=== PATIENT | male | born 1955 | race Caucasian/White ===

== ENCOUNTER 2018-05-15 14:09 | Observation (INO) | payer OTHER ==
--- NOTE | 2018-05-15 15:13 | PDOC ---
History of Present Illness - General Stated Complaint: LEG PAIN Time Seen by Provider: 05/15/18 14:42 History Source: Patient Exam Limitations: No Limitations - History of Present Illness Initial Comments: 05/15/18 15:09 63 yr male history of HTN, right hip bursitus, right knee arthritis, presents with pain to the hip states worse after cortisone injection one week ago . Pt denies fever or chills no back or abd pain no urine or bowel dysfunction. Pt states pain is 10/10. Occurred: reports: last week Severity: Yes: severe Lower Extremity Pain Location: right: hip Extremity Pain Location - Extremity Pain Location Extremity Pain Locations: right: hip Past History - Past Medical History Allergies/Adverse Reactions: Allergies Allergy/AdvReac Type Severity Reaction Status Date / Time No Known Allergies Allergy Verified 05/15/18 14:14 Home Medications: Ambulatory Orders Benicar 12.5 mg PO DAILY 05/15/18 COPD: No HTN: Yes Other medical history: brisitis in the Rt hip - Suicide/Smoking/Psychosocial Hx Smoking History: Current every day smoker Have you smoked in the past 12 months: Yes Number of Cigarettes Smoked Daily: 3 Information on smoking cessation initiated: Yes 'Breaking Loose' booklet given: 05/15/18 Hx Alcohol Use: Yes (social) Drug/Substance Use Hx: No Substance Use Type: None Review of Systems - Review of Systems Able to Perform ROS?: Yes Is the patient limited Bol[place]ian proficient: No Constitutional: No: Symptoms Reported HEENTM: No: Symptoms Reported Respiratory: No: Symptoms reported Cardiac (ROS): No: Symptoms Reported ABD/GI: No: Symptoms Reported : No: Symptoms Reported Musculoskeletal: Yes: Symptoms Reported *Physical Exam - Vital Signs Last Vital Signs Temp Pulse Resp BP Pulse Ox 98.2 F 88 17 113/55 100 05/15/18 14:11 05/15/18 14:11 05/15/18 14:11 05/15/18 14:11 05/15/18 14:11 - Physical Exam General Appearance: Yes: Nourished, Appropriately Dressed, Mild Distress HEENT: positive: EOMI, TERRIE Respiratory/Chest: positive: Lungs Clear, Normal Breath Sounds Cardiovascular: positive: Regular Rhythm, Regular Rate Gastrointestinal/Abdominal: positive: Normal Bowel Sounds, Soft. negative: Tender Rectal Exam: positive: deferred Lymphatic: negative: Adenopathy Musculoskeletal: positive: Normal Inspection. negative: Muscle Spasm, Vertebral Tenderness Extremity: positive: Normal Capillary Refill, Normal Inspection, Tender, Other ( right hip tenderness, unable to abduct or internally rotate due to pain , no redness or warmth no swelling ). negative: Normal Range of Motion, Swelling, Erythema, Inflammation Integumentary: positive: Normal Color, Dry, Warm Neurologic: positive: Alert, Normal Mood/Affect, Normal Response, Motor Strength 01/18 ED Treatment Course - LABORATORY CBC & Chemistry Diagram: 05/15/18 16:55 05/15/18 16:55 - RADIOLOGY Radiology Studies Ordered: Category Date Time Status LOWER EXTREMITY CT W/O CONTR [CT] Stat CT Scan 05/15/18 14:53 Ordered - Medications Given in the ED: ED Medications Discontinued Medications Generic Name Dose Route Start Last Admin Trade Name Freq PRN Reason Stop Dose Admin Oxycodone/Acetaminophen 1 combo 05/15/18 14:59 05/15/18 15:02 Percocet 5/325 - PO 05/15/18 15:00 1 combo ONCE ONE Administration Medical Decision Making - Medical Decision Making 05/15/18 15:12 cc: right hip pain 10/10 for one week worse the past 2 days no back pain no fever no chills diff ambulating will get CT hip r/o fracture , septic bursitis 05/15/18 16:40 percocet given with no relief pt tolerated CT awaiting labs 05/15/18 17:23 WBC 18.0 pt to be transfered to Main ER for further workup and evaluation signed out to 05/15/18 17:32
[2018-05-15 17:04] LABS: EOS % 1.1 % (0-4.5); HEMATOCRIT 45.7 % (35.4-49); HEMOGLOBIN 15.5 GM/dL (11.7-16.9); LYMPH % 9.1 % (8-40); MCH 32.5 pg (25.7-33.7); MEAN CELL VOLUME 95.6 fl (80-96); MEAN PLT VOLUME 7.4 fl (7.5-11.1); MONO % 8.3 % (3.8-10.2); NEUT % 80.5 % (42.8-82.8); PLATELET COUNT 316 K/MM3 (134-434); RBC 4.77 M/mm3 (4.00-5.60); RDW 13.8 % (11.9-15.9)
[2018-05-15] MEDS ORDERED: CLINDAMYCIN 600MG PREMIX IVPB 600 MG/50 ML BAG IVPB ONE ×2 (17:16→17:59)
[2018-05-15 17:36] LABS: ALBUMIN 4.7 g/dl (3.4-5.0); ALK PHOS 77 U/L (45-117); ANION GAP 10 MMOL/L (8-16); BILIRUBIN,TOTAL 0.7 mg/dL (0.2-1.0); BLOOD UREA NITROGEN 22 mg/dL (7-18); CALCIUM 10.6 mg/dL (8.5-10.1); CHLORIDE 99 mmol/L (98-107); CO2 28 mmol/L (21-32); CREATININE 1.1 mg/dL (0.7-1.3); GLUCOSE,RANDOM 92 mg/dL (74-106); POTASSIUM 4.3 mmol/L (3.5-5.1); SGOT/AST 21 U/L (15-37); SGPT/ALT 28 U/L (12-78); SODIUM 137 mmol/L (136-145); TOT PROT 8.3 g/dl (6.4-8.2)
[2018-05-15] MEDS ORDERED: ONDANSETRON *ODT* 4 MG TABLET SL ONE (17:38)
[2018-05-15] MEDS ORDERED: ONDANSETRON *ODT* 4 MG TABLET ONE (17:39)
--- NOTE | 2018-05-15 18:01 | PDOC ---
History of Present Illness - General Chief Complaint: Pain Stated Complaint: LEG PAIN Time Seen by Provider: 05/15/18 14:42 - History of Present Illness Initial Comments: 05/15/18 18:00 63 yo M with h/o chronic R hip bursitis, and HTN who p/w R hip pain. Patient reports worsening sharp R hip pain x 3 weeks following fall onto his R knee. Recently had undergone R hip and R knee steroid injection on (05/08/18) , with worsening of R hip pain the following Saturday (05/12/18). Patient states that he was unable to get out of bed, and unable to ambulate d/t pain. Pain shoots down anterior and posterior thigh to back of leg. Diagnosed with R hip bursitis x 1 year ago , and has received 3 R hip injections to date. Reports OTC Ibuprofen and naproxen with no relief in symptoms. Patient denies N/V, F,C, CP, SOB, urinary complaints, hematuria, abdominal pain , diarrhea, constipation, BPR, lightheadedness, weakness, sensory changes. PMHx: as noted above Surgical Hx: Abdominal hernia repair ROS: as noted SHx: Denies tobacco, EtoH, IVDA. Allergies: NKDA PMD: Not on staff Past History - Past Medical History Allergies/Adverse Reactions: Allergies Allergy/AdvReac Type Severity Reaction Status Date / Time No Known Allergies Allergy Verified 05/15/18 14:14 Home Medications: Ambulatory Orders Olmesartan Medoxomil [Benicar (Nf)] mg PO DAILY 05/15/18 COPD: No HTN: Yes Other medical history: brisitis in the Rt hip - Suicide/Smoking/Psychosocial Hx Smoking History: Current every day smoker Have you smoked in the past 12 months: Yes Number of Cigarettes Smoked Daily: 3 Information on smoking cessation initiated: Yes 'Breaking Loose' booklet given: 05/15/18 Hx Alcohol Use: Yes (social) Drug/Substance Use Hx: No Substance Use Type: None Review of Systems - Review of Systems Comments:: 05/15/18 18:00 GENERAL/CONSTITUTIONAL: No fever or chills. No weakness. HEAD, EYES, EARS, NOSE AND THROAT: No change in vision. No ear pain or discharge. No sore throat. CARDIOVASCULAR: No chest pain or shortness of breath RESPIRATORY: No cough, wheezing, or hemoptysis. GASTROINTESTINAL: No nausea, vomiting, diarrhea or constipation. GENITOURINARY: No dysuria, frequency, or change in urination. MUSCULOSKELETAL: + Right hip pain. No joint or muscle swelling. No neck pain. SKIN: No rash NEUROLOGIC: No headache, vertigo, loss of consciousness, or change in strength/ sensation. ENDOCRINE: No increased thirst. No abnormal weight change HEMATOLOGIC/LYMPHATIC: No anemia, easy bleeding, or history of blood clots. ALLERGIC/IMMUNOLOGIC: No hives or skin allergy. *Physical Exam - Vital Signs Last Vital Signs Temp Pulse Resp BP Pulse Ox 98.2 F 88 17 113/55 100 05/15/18 14:11 05/15/18 14:11 05/15/18 14:11 05/15/18 14:11 05/15/18 14:11 - Physical Exam Comments: 05/15/18 18:00 GENERAL: Awake, alert, and fully oriented, in no acute distress HEAD: No signs of trauma, normocephalic, atraumatic EYES: PERRLA, EOMI, sclera anicteric, conjunctiva clear ENT: Hearing grossly normal, nares patent, oropharynx clear without exudates. Moist mucosa NECK: Normal ROM, supple, no lymphadenopathy, JVD, or masses LUNGS: No distress, speaks full sentences, clear to auscultation bilaterally HEART: Regular rate and rhythm, normal S1 and S2, no murmurs, rubs or gallops, peripheral pulses normal and equal bilaterally. EXTREMITIES : Normal inspection, Normal range of motion, no edema. No clubbing or cyanosis. R Knee: Neg effusion. clear to inspection. Neg ant drawer, post drawer sign. Nml join laxity. Neg varus/valgus deformity. palpable and symmetric peripheral PT, and DP pulses. R Hip: R SI joint ttp, R piriformis ttp, Pain with active ROM. Radial and pedal pulses intact SKIN: Warm, Dry, normal turgor, no rashes or lesions noted ED Treatment Course - LABORATORY CBC & Chemistry Diagram: 05/15/18 16:55 05/15/18 16:55 - ADDITIONAL ORDERS Additional order review: Laboratory Results 05/15/18 16:55 Sodium 137 Potassium 4.3 Chloride 99 Carbon Dioxide 28 Anion Gap 10 BUN 22 H Creatinine 1.1 Creat Clearance w eGFR > 60 Random Glucose 92 Calcium 10.6 H Total Bilirubin 0.7 AST 21 ALT 28 Alkaline Phosphatase 77 C-Reactive Protein < 0.3 Total Protein 8.3 H Albumin 4.7 05/15/18 16:55 RBC 4.77 MCV 95.6 MCHC 34.0 RDW 13.8 MPV 7.4 L Neutrophils % 80.5 Lymphocytes % 9.1 Monocytes % 8.3 Eosinophils % 1.1 Basophils % 1.0 - Medications Given in the ED: ED Medications Discontinued Medications Generic Name Dose Route Start Last Admin Trade Name Meron PRN Reason Stop Dose Admin Ondansetron HCl 4 mg 05/15/18 17:38 05/15/18 17:54 Zofran Odt - SL 05/15/18 17:39 4 mg ONCE ONE Administration Oxycodone/Acetaminophen 1 combo 05/15/18 14:59 05/15/18 15:02 Percocet 5/325 - PO 05/15/18 15:00 1 combo ONCE ONE Administration Medical Decision Making - Medical Decision Making 05/15/18 18:33 63 yo M with h/o chronic R hip bursitis, and HTN who p/w R hip pain. VSS, AF.Patient upgraded from [facility] for concern of R hip septic joint. R SI joint ttp, and painful with active ROM. Radial and pedal pulses intact. No overlying skin changes. WBC 18.0 in fast track. R/o septic joint/osteomyeleits. Ed Course: Received Clindamycin, CT R HIP, Zofran, and Oxycodone in fast track 05/15/18 18:33 WBC: 18.0 CRP <0.3 CT AP: No acute pathology. cannot r/o early septic arthritis or osteomyelitis.+ Chronic degenerative changes. 05/15/18 18:[address] Duncan Franco, will obtain MRI R Hip and he will see in morning. Consult order was placed. 05/15/18 19:[address] Kwaku Melendez.Will admit to med/surg obs . 05/15/18 19:48 EKG Sinus bradycardia (58) with normal interval duration and axis. No ANTWAN, STD, or TWI. *DC/Admit/Observation/Transfer Diagnosis at time of Disposition: Right hip pain Elevated WBC count Qualifiers: Leukocytosis type: unspecified Qualified Code(s): D72.829 - Elevated white blood cell count, unspecified - Discharge Dispostion Condition at time of disposition: Stable Decision to Admit order: Yes - Referrals - Patient Instructions - Post Discharge Activity
--- NOTE | 2018-05-15 18:18 | PDOC ---
*Physical Exam - Vital Signs Last Vital Signs Temp Pulse Resp BP Pulse Ox 98.2 F 88 17 113/55 100 05/15/18 14:11 05/15/18 14:11 05/15/18 14:11 05/15/18 14:11 05/15/18 14:11 - Physical Exam Comments: 05/15/18 18:30 gen: [id number], uncomfortable back: no midline back ttp, ttp over R piriformis, pt able to flex and extend at the hip with mild decreased ROM at ends of flexion and extension, no laxity of the joint, no knee swelling, no erythema, no redness, no warmth, no effusion palpated, normal rom of the knee, negative medial/lateral laxity, no effusion, full internal and external rotation of the hip, R SI joint ttp, R piriformis ttp , radiation from palpation R piriformis down R leg reproducing the pain radial and pedal pulses intact Heart Score/ECG Review - ECG Intrepretation Comment:: 05/15/18 19:47 sinus sierra at 58, nl axis, nl interval, no acute st/t wave findings ED Treatment Course - LABORATORY CBC & Chemistry Diagram: 05/15/18 16:55 05/15/18 16:55 - ADDITIONAL ORDERS Additional order review: Laboratory Results 05/15/18 16:55 Sodium 137 Potassium 4.3 Chloride 99 Carbon Dioxide 28 Anion Gap 10 BUN 22 H Creatinine 1.1 Creat Clearance w eGFR > 60 Random Glucose 92 Calcium 10.6 H Total Bilirubin 0.7 AST 21 ALT 28 Alkaline Phosphatase 77 C-Reactive Protein < 0.3 Total Protein 8.3 H Albumin 4.7 05/15/18 16:55 RBC 4.77 MCV 95.6 MCHC 34.0 RDW 13.8 MPV 7.4 L Neutrophils % 80.5 Lymphocytes % 9.1 Monocytes % 8.3 Eosinophils % 1.1 Basophils % 1.0 - Medications Given in the ED: ED Medications Discontinued Medications Generic Name Dose Route Start Last Admin Trade Name Freq PRN Reason Stop Dose Admin Clindamycin Phosphate 600 mg in 50 mls @ 100 mls/hr 05/15/18 17:16 05/15/18 18:02 Cleocin 600 Mg Premix Ivpb - IVPB 05/15/18 17:45 100 mls/hr ONCE ONE Administration Protocol Ondansetron HCl 4 mg 05/15/18 17:38 05/15/18 17:54 Zofran Odt - SL 05/15/18 17:39 4 mg ONCE ONE Administration Oxycodone/Acetaminophen 1 combo 05/15/18 14:59 05/15/18 15:02 Percocet 5/325 - PO 05/15/18 15:00 1 combo ONCE ONE Administration Medical Decision Making - Medical Decision Making 05/15/18 18:34 63yo male with hx of hip bursitis - s/p cortisone injection to the R hip and R knee -pt upgraded from [facility] for concern for septic joint no effusion seen on ct elevated wbc - however had cortisone injections to R hip and R knee - poss steroid related -concern for poss sciatica causing pain will discuss with orthopedics and place in obs for ortho eval and pt eval and pain control will give a muscle relaxer 05/15/18 18:45 crp negative wbc elevated resident discussed the case Dr. Franco who will see the patient requests MRI Hip microblog sent to [facility] for obs 05/15/18 19:48 resident discussed the case with [facility] who accepts pt to service *DC/Admit/Observation/Transfer Diagnosis at time of Disposition: Right hip pain Elevated WBC count Qualifiers: Leukocytosis type: unspecified Qualified Code(s): D72.829 - Elevated white blood cell count, unspecified - Discharge Dispostion Condition at time of disposition: Fair Decision to Admit order: Yes - Referrals - Patient Instructions - Post Discharge Activity - Attestations Physician Attestion: 05/15/18 18:46 I, Dr. Pamella Alejandre, DO, attest that this document has been prepared under my direction and personally reviewed by me in its entirety. I further attest, that it accurately reflects all work, treatment, procedures and medical decision -making performed by me.
[2018-05-15] MEDS ORDERED: METHOCARBAMOL 500 MG TABLET PO ONE (18:28)
[2018-05-15] MEDS ORDERED: METHOCARBAMOL 500 MG TABLET ONE (18:44)
[2018-05-15 19:01] LABS: ERYTHROCYTE SEDIMENTATION RATE 4 mm/hr (0-20)
--- NOTE | 2018-05-15 20:02 | PN ---
Teaching Attending Note Name of Resident: Sirisha Rodgers ATTENDING PHYSICIAN STATEMENT I saw and evaluated the patient. I reviewed the resident's note and discussed the case with the resident. I agree with the resident's findings and plan as documented. SUBJECTIVE: Patient is a 63 neema old man with history of chronic right Hip bursitis, and HTN who presents with right hip pain. Patient reports worsening sharp right hip pain for 3 weeks following fall onto his right knee. Recently had undergone R hip and R knee steroid injection on (05/08/18), with worsening of R hip pain the following Saturday (05/12/18). Patient states that he was unable to get out of bed, and unable to ambulate due to pain. Pain shoots down anterior and posterior thigh to back of leg. Diagnosed with R hip bursitis 1 year ago, and has received 3 right hip injections to date. Reports OTC Ibuprofen and naproxen with no relief in symptoms. OBJECTIVE: Alert Vital Signs Period Temp Pulse Resp BP Sys/[place] Pulse Ox Last 24 Hr 98.2 F 88 17 113/55 100 HEENT: No Jaundice, eye redness or discharge, PERRLA, EOMI. Normocephalic, atraumatic. External ears are normal and hearing is grossly intact. No nasal discharge. Neck: Supple, nontender. No palpable adenopathy or thyromegaly. No JVD Chest: Good effort. Clear to auscultation and percussion. Heart: Regular. No S3, rub or murmur Abdomen: Not distended, soft, nontender and no HSM. No rebound or guarding. Normoactive bowel sounds. Ext: Peripheral pulses intact. No leg edema. Tender right hip with limited ROM. Skin: Warm and dry. No petechiae, rash or ecchymosis. Neuro: Alert. Oriented x3. CN 2-12 grossly intact. Sensation grossly intact in all four extremities and DTR are symmetric. Home Medications Medication Instructions Recorded Olmesartan Medoxomil [Benicar (Nf)] mg PO DAILY 05/15/18 Abnormal Lab Results 05/15/18 05/15/18 16:55 16:55 WBC 18.0 H MPV 7.4 L Absolute Neuts (auto) 14.5 H BUN 22 H Calcium 10.6 H Total Protein 8.3 H ASSESSMENT AND PLAN: 1. Left Hip Pain - Patient is afebrile and he got intra-articular steroids on which may explain leukocytosis. Pain more consistent with flare-up of his bursitis than septic arthritis. CT scan of the hip did not show any significant pathology and MRI is pending. Ortho consulted. Will treat with Percocet and warm compress and await ortho evaluation for possible arthrocentesis. Will treat with IV NS and liberal oral fluids for mild hypercalcemia and get PTH level. 2. DVT prophylaxis - Lovenox 40 mg SQ q 24 hours. 3. Advance directives - Full code
--- NOTE | 2018-05-15 20:38 | HP ---
CHIEF COMPLAINT:right hip pain PCP: HISTORY OF PRESENT ILLNESS: 63 y/o male with PMH of chronic R hip bursitis, HTN, R knee arthritis presents to the ED with worsening right hip pain. Patient states he fell about three weeks ago and has not felt right. He received a cortisone injection on 05/08 and has not really felt any relief. He can barely ambulate or put pressure on his right leg. He states the pain is around 10/10 and he has not gotten any relief from OTC pain meds such as naproxen. 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 ER course was notable for: (1)WBC 18 (2)Lower extremity CT shows no acute pathology- patient going for MRI (3) Recent Travel:none PAST MEDICAL HISTORY: see HPI PAST SURGICAL HISTORY: abdominal hernia repair during childhood Social History: Smoking: smoked 1 pack per weekend for many years Alcohol:social drinking 1-2 drinks per weekend Drugs: denies Family History: father and brother have prostate ca Allergies No Known Allergies Allergy (Verified 05/15/18 14:14) HOME MEDICATIONS: Home Medications Medication Instructions Recorded Olmesartan Medoxomil [Benicar (Nf)] mg PO DAILY 05/15/18 REVIEW OF SYSTEMS CONSTITUTIONAL: Absent: fever, chills, diaphoresis, generalized weakness, malaise, loss of appetite, weight change HEENT: Absent: rhinorrhea, nasal congestion, throat pain, throat swelling, difficulty swallowing, mouth swelling, ear pain, eye pain, visual changes CARDIOVASCULAR: Absent: chest pain, syncope, palpitations, irregular heart rate, lightheadedness , peripheral edema RESPIRATORY: Absent: cough, shortness of breath, dyspnea with exertion, orthopnea, wheezing, stridor, hemoptysis GASTROINTESTINAL: Absent: abdominal pain, abdominal distension, nausea, vomiting, diarrhea, constipation, melena, hematochezia GENITOURINARY: Absent: dysuria, frequency, urgency, hesitancy, hematuria, flank pain, genital pain MUSCULOSKELETAL: Present joint swelling, myalgia : Absent: arthralgia, back pain, neck pain SKIN: Absent: rash, itching, pallor HEMATOLOGIC/IMMUNOLOGIC: Absent: easy bleeding, easy bruising, lymphadenopathy, frequent infections ENDOCRINE: Absent: unexplained weight gain, unexplained weight loss, heat intolerance, cold intolerance NEUROLOGIC: Absent: headache, focal weakness or paresthesias, dizziness, unsteady gait, seizure, mental status changes, bladder or bowel incontinence PSYCHIATRIC: Absent: anxiety, depression, suicidal or homicidal ideation, hallucinations. PHYSICAL EXAMINATION Vital Signs - 24 hr 05/15/18 14:11 Temperature 98.2 F Pulse Rate 88 Respiratory 17 Rate Blood Pressure 113/55 O2 Sat by Pulse 100 Oximetry (%) GENERAL: Awake, alert, and fully oriented, in acute distress. NECK: no JVD appreciated LUNGS: CTA B/L, no rales, rhonchi, wheezing. HEART: Regular rate and rhythm, normal S1 and S2 without murmur, rub or gallop. ABDOMEN: Soft, nontender, not distended, normoactive bowel sounds, no guarding, no rebound, no masses. No hepatomegaly or splenomegaly. MUSCULOSKELETAL:+ttp on right hip/piriformis with pain radiating down right leg and to right groin; pain with adduction, joint is not warm or erythematous. EXTREMITIES: warm; well perfused, no clubbing/cyanosis or LE edema NEUROLOGICAL: Cranial nerves II-XII intact. Normal speech. Normal gait. PSYCHIATRIC: Cooperative. Good eye contact. Appropriate mood and affect. SKIN: Warm, dry, normal turgor, no rashes or lesions noted, normal capillary refill. Laboratory Results - last 24 hr 05/15/18 05/15/18 16:55 16:55 WBC 18.0 H RBC 4.77 Hgb 15.5 Hct 45.7 MCV 95.6 MCH 32.5 MCHC 34.0 RDW 13.8 Plt Count 316 MPV 7.4 L Absolute Neuts (auto) 14.5 H Neutrophils % 80.5 Lymphocytes % 9.1 Monocytes % 8.3 Eosinophils % 1.1 Basophils % 1.0 Nucleated RBC % 0 ESR 4 Sodium 137 Potassium 4.3 Chloride 99 Carbon Dioxide 28 Anion Gap 10 BUN 22 H Creatinine 1.1 Creat Clearance w eGFR > 60 Random Glucose 92 Calcium 10.6 H Total Bilirubin 0.7 AST 21 ALT 28 Alkaline Phosphatase 77 C-Reactive Protein < 0.3 Total Protein 8.3 H Albumin 4.7 ASSESSMENT/PLAN: 63 y/o male with PMH of chronic R hip bursitis, HTN, R knee arthritis presents to the ED with worsening right hip pain. #1:Hip Pain: patients hip pain seems more of a flre up rather than a septic joint given patient is afebrile and the joint itself does not appear erythematous or warm to touch -CT showed no acute pathology -MRI pending -ortho consulted will see patient in AM -treat with percocet for pain and supportive care #2: HTN -continue with Benicar 20 daily #3: Hypercalcemia: -IVF DVT Prophylaxis: lovenox 40 sq daily - Problem List - Problem (1) Elevated WBC count Code(s): D72.829 - ELEVATED WHITE BLOOD CELL COUNT, UNSPECIFIED Qualifiers: Leukocytosis type: unspecified Qualified Code(s): D72.829 - Elevated white blood cell count, unspecified (2) Right hip pain Code(s): M25.551 - PAIN IN RIGHT HIP Visit type - Emergency Visit Emergency Visit: Yes Care time: The patient presented to the Emergency Department on the above date and was hospitalized for further evaluation of their emergent condition. - New Patient This patient is new to me today: Yes Date on this admission: 05/15/18 - Critical Care Critical Care patient: No Hospitalist Screening - Colonoscopy Questionnaire Colonoscopy Questionnaire: Colonoscopy Questionnaire - Patient: 50 - 75 years old and never had a screening colonoscopy: Unknown History of colon or rectal polyps, or CA: Unknown History of IBD, Crohn's disease or UC: Unknown History of abdominal radiation therapy as a child: Unknown - Relative: 1 with colon or rectal CA, or polyps at age 60 or younger: Unknown Colon or rectal CA diagnosed at age 45 or younger: Unknown Multiple relatives with colon or rectal CA: Unknown - Outcome: Screening Result: Negative Screen
[2018-05-15] MEDS ORDERED: morphine CARPU-JECT 4 MG/1 ML DISP.SYRIN IVPUSH ONE (20:53)
[2018-05-15] MEDS ORDERED: SODIUM CHLORIDE 1,000 ML IV SCH (21:15)
[2018-05-15] MEDS ORDERED: ACETAMINOPHEN 325 MG TABLET (FP) PO PRN (21:21)
[2018-05-15] MEDS ORDERED: ENOXAPARIN NA (PORCINE) 40 MG/0.4 ML DISP.SYRIN SQ ONE (21:35)
[2018-05-15] MEDS ORDERED: morphine SULFATE 4 MG/ML VIAL ONE (21:35)
[2018-05-15] MEDS: SODIUM CHLORIDE 1,000 ML IV SCH (21:44)
[2018-05-15] MEDS: ENOXAPARIN NA (PORCINE) 40 MG/0.4 ML DISP.SYRIN SQ SCH (21:44)
[2018-05-15] MEDS ORDERED: ONDANSETRON 4 MG/2 ML VIAL IVPB ONE (21:54)
[2018-05-15] MEDS ORDERED: HEPARIN NA (PORCINE) 5,000 UNITS/ML 1ML VIAL SQ SCH (22:00)
--- NOTE | 2018-05-15 23:14 | CONSULT ---
Consult - text type - Consultation Consultation Note: Asked to eval this 63M admitted for sever right hip pain for 3 days. He had steroid injection done 05/08 and now worse. Evaluation in ER showed WBC of 18. Patient states he fell 3 weeks ago. Currently he states that if he presses on the right hip, the pain shoots down to the back of the knee. PMH: chronic R hip bursitis, HTN, R knee arthritis Meds: reviewed in chart All:nkda FH: n/c ROS: no recent fevers/chills/weight loss PE: Afebrile, in no distress, comfortable in bed right hip no redness/swelling/warmth passive rom full and painfree motor strength intact b/l le straight leg raising exam negative bilaterally ankle strength intact no peripheral edema distal pulses 2+ CT: no acute pathology or obvious effusion or abscess in non contrast study; no fractur Labs: WBC 18 ESR 4 CRP < 0.3 Imp: Right hip pain, elevated WBC but ESR/CRP WNL -septic hip unlikely given clinical exam and normal esr/crp -possible right radiculopathy but neuro exam benign -right hip mri since no clear source of white count at this time -repeat cbc in am -will follow after mri
[2018-05-16] MEDS: oxyCODONE HCL 5 MG TABLET PO PRN ×2 (02:35→07:15)
[2018-05-16 02:58] VITALS: BMI 24.3
[2018-05-16] MEDS ORDERED: RANITIDINE HCL 150 MG TABLET (FP) PO ONE (05:15)
[2018-05-16] MEDS ORDERED: ACETAMINOPHEN 325 MG TABLET (FP) PO PRN (07:51)
[2018-05-16 08:34] LABS: BASO % 0.3 % (0-2.0); EOS % 1.5 % (0-4.5); HEMATOCRIT 44.1 % (35.4-49); HEMOGLOBIN 14.9 GM/dL (11.7-16.9); LYMPH % 14.2 % (8-40); MCH 32.3 pg (25.7-33.7); MCHC 33.8 g/dl (32.0-35.9); MEAN CELL VOLUME 95.6 fl (80-96); MEAN PLT VOLUME 7.4 fl (7.5-11.1); MONO % 9.8 % (3.8-10.2); NEUT % 74.2 % (42.8-82.8); PLATELET COUNT 259 K/MM3 (134-434); RBC 4.61 M/mm3 (4.00-5.60); RDW 13.4 % (11.9-15.9); WHITE BLOOD COUNT 14.9 K/mm3 (4.0-10.0)
[2018-05-16 08:58] LABS: ALBUMIN 3.9 g/dl (3.4-5.0); ANION GAP 9 MMOL/L (8-16); BLOOD UREA NITROGEN 22 mg/dL (7-18); CALCIUM 9.4 mg/dL (8.5-10.1); CHLORIDE 102 mmol/L (98-107); CO2 26 mmol/L (21-32); GLUCOSE,RANDOM 98 mg/dL (74-106); MAGNESIUM 1.9 mg/dL (1.8-2.4); POTASSIUM 4.5 mmol/L (3.5-5.1); SGOT/AST 22 U/L (15-37); SODIUM 137 mmol/L (136-145)
[2018-05-16 09:10] LABS: ALK PHOS 66 U/L (45-117); BILIRUBIN,TOTAL 0.6 mg/dL (0.2-1.0); CREATININE 1.2 mg/dL (0.7-1.3); PHOSPHOROUS 3.6 mg/dL (2.5-4.9); SGPT/ALT 26 U/L (12-78); TOT PROT 7.4 g/dl (6.4-8.2)
[2018-05-16] MEDS: ENOXAPARIN NA (PORCINE) 40 MG/0.4 ML DISP.SYRIN SQ SCH (10:29)
--- NOTE | 2018-05-16 10:32 | EKG ---
Test Reason : Blood Pressure : / mmHG Vent. Rate : 058 BPM Atrial Rate : 058 BPM P-R Int : 150 ms QRS Dur : 086 ms QT Int : 414 ms P-R-T Axes : 035 003 035 degrees QTc Int : 406 ms SINUS BRADYCARDIA OTHERWISE NORMAL ECG NO PREVIOUS ECGS AVAILABLE Confirmed by DIMITRY LANG, CAROLA ([id number]) on 05/16/2018 10:32:07 AM Referred By: Confirmed By:CAROLA MORAES MD
[2018-05-16] MEDS: KETOROLAC TROMETHAMINE 15 MG/ML VIAL IVPUSH PRN ×2 (12:15→18:31)
[2018-05-16] MEDS: LIDOCAINE 5% TOPICAL PATCH TP SCH (12:15)
[2018-05-16] MEDS: GABAPENTIN 100 MG CAPSULE (FP) PO SCH ×2 (14:52→21:10)
--- NOTE | 2018-05-16 16:33 | PN ---
Physical Exam: SUBJECTIVE: Patient seen and examined this AM. He is complaing of hip and leg pain 10/10 with some relief from pain meds. He states that sitting up improves his pain and movement worsens it. OBJECTIVE: Vital Signs Period Temp Pulse Resp BP Sys/Hampton Pulse Ox Last 24 Hr 98 F-98.5 F 51-80 18-21 106-130/60-74 98-100 GENERAL: A&O, no acute distress HEAD: Normocephalic, atraumatic. EYES: PERRL, no scleral icterus EARS, NOSE, THROAT: oropharynx clear without exudates. Moist mucous membranes. NECK: supple without lymphadenopathy LUNGS: CTA b/l, no crackles or wheezes HEART: Regular rate and rhythm, normal S1 and S2 without murmur ABDOMEN: Soft, nontender to palpation, normoactive bowel sounds MUSCULOSKELETAL: No bony deformities. Superficial tenderness to palpation on right gluteal region with radiation down the right thigh EXTREMITIES: 2+ pulses, warm, well-perfused. No peripheral edema. NEUROLOGICAL: Cranial nerves II-XII grossly intact. Normal speech. PSYCHIATRIC: Cooperative. Good eye contact. Appropriate mood and affect. SKIN: Warm, dry, no rashes or lesions noted Laboratory Results - last 24 hr 05/15/18 05/15/18 05/16/18 16:55 16:55 08:00 WBC 18.0 H 14.9 H RBC 4.77 4.61 Hgb 15.5 14.9 Hct 45.7 44.1 MCV 95.6 95.6 MCH 32.5 32.3 MCHC 34.0 33.8 RDW 13.8 13.4 Plt Count 316 259 MPV 7.4 L 7.4 L Absolute Neuts (auto) 14.5 H 11.0 H Neutrophils % 80.5 74.2 Lymphocytes % 9.1 14.2 D Monocytes % 8.3 9.8 Eosinophils % 1.1 1.5 Basophils % 1.0 0.3 Nucleated RBC % 0 0 ESR 4 Sodium 137 Potassium 4.3 Chloride 99 Carbon Dioxide 28 Anion Gap 10 BUN 22 H Creatinine 1.1 Creat Clearance w eGFR > 60 Random Glucose 92 Calcium 10.6 H Phosphorus Magnesium Total Bilirubin 0.7 AST 21 ALT 28 Alkaline Phosphatase 77 C-Reactive Protein < 0.3 Total Protein 8.3 H Albumin 4.7 05/16/18 08:00 WBC RBC Hgb Hct MCV MCH MCHC RDW Plt Count MPV Absolute Neuts (auto) Neutrophils % Lymphocytes % Monocytes % Eosinophils % Basophils % Nucleated RBC % ESR Sodium 137 Potassium 4.5 Chloride 102 Carbon Dioxide 26 Anion Gap 9 BUN 22 H Creatinine 1.2 Creat Clearance w eGFR > 60 Random Glucose 98 Calcium 9.4 Phosphorus 3.6 Magnesium 1.9 Total Bilirubin 0.6 AST 22 ALT 26 Alkaline Phosphatase 66 D C-Reactive Protein Total Protein 7.4 Albumin 3.9 Active Medications Generic Name Dose Route Start Last Admin Trade Name Freq PRN Reason Stop Dose Admin Acetaminophen 650 mg 05/16/18 07:51 Tylenol - PO Q6H PRN PAIN LEVEL 1-5 Enoxaparin Sodium 40 mg 05/15/18 20:45 05/16/18 10:29 Lovenox - SQ 40 mg DAILY ALCIRA Administration Gabapentin 100 mg 05/16/18 14:00 05/16/18 14:52 Neurontin - PO 100 mg TID ALCIRA Administration Sodium Chloride 1,000 mls @ 50 mls/hr 05/15/18 21:18 05/15/18 21:44 Normal Saline - IV 50 mls/hr ASDIR ALCIRA Administration Ketorolac Tromethamine 15 mg 05/16/18 07:50 05/16/18 12:15 Toradol Injection - IVPUSH 05/21/18 07:49 15 mg Q6H PRN Administration PAIN LEVEL 6-10 Lidocaine 1 patch 05/16/18 12:00 05/16/18 12:15 Lidoderm Patch - TP 1 patch DAILY ALCIRA Administration Miscellaneous 1 each 05/16/18 22:00 Lidoderm Patch Removal DAILY@2200 [facility] ASSESSMENT/PLAN: 63 yo male with PMH HTN, Right hip bursitis, right knee arthritis admitted with med/surg with right hip pain s/p steroid injection of right hip and knee. Right hip pain, r/o septic joint -Pt with right hip pain that is clinically more musculoskeletal pain -Pt is afebrile -WBC 18 on admission, trending down (14.9 this morning) -CT of joint noted with no abnormalities -Ortho consult appreciated -MRI pending -Physical Therapy evaluation -Lidoderm patch -Toradol 15 mg IV Q6 PRN -Neurontin 100 mg PO TID -Tylenol 650 mg PO Q6 PRN HTN -Pt says he is on Benicar 20 mg PO Daily at home -Will hold for now as his most recent blood pressure without medication yet is 113/62 DVT Prophylaxis -Lovenox 40 mg SQ Daily FEN -Fluids: NS @ 50 cc/hr -Electrolytes: No electrolyte abnormalities, BMP in AM -Nutrition: Low Sodium diet Disposition Continue to monitor on Med/Surg Visit type - Emergency Visit Emergency Visit: Yes ED Registration Date: 05/15/18 Care time: The patient presented to the Emergency Department on the above date and was hospitalized for further evaluation of their emergent condition. - New Patient This patient is new to me today: Yes Date on this admission: 05/16/18 - Critical Care Critical Care patient: No
--- NOTE | 2018-05-16 18:20 | PN ---
Teaching Attending Note Name of Resident: Jose A Nathan ATTENDING PHYSICIAN STATEMENT I saw and evaluated the patient. I reviewed the resident's note and discussed the case with the resident. I agree with the resident's findings and plan as documented with exceptions below. SUBJECTIVE: Patient seen and examined. pain in right gluteal region, radiating down right thigh, unchanged since admission. no new tingling/weakness/numbness, urinary or bowel symptoms. OBJECTIVE: Vital Signs Period Temp Pulse Resp BP Sys/Hampton Pulse Ox Last 24 Hr 98 F-98.5 F 51-80 18-21 106-130/60-74 98-100 Intake & Output 05/13/18 05/14/18 05/15/18 05/16/18 23:59 23:59 23:59 23:59 Intake Total 900 Output Total 300 Balance 600 Weight 160 lb 7 oz General: lying in bed in no acute distress Musculoskeletal: focal area of tenderness in outer lower right gluteal region with no specific eliciated tenderness, When attempted to check SLR on RLE, stated unable to move due to pain but then noted moving RLE freely in bed during the rest of the exam, no spinal tenderness noted Home Medications Medication Instructions Recorded Olmesartan Medoxomil [Benicar (Nf)] 20 mg PO DAILY 05/15/18 Naproxen 500 mg PO BID 05/16/18 Olmesartan/Hydrochlorothiazide 1 tablet PO DAILY 05/16/18 [Olmesartan-Hctz 20-12.5 mg Tab] Active Medications Acetaminophen (Tylenol -) 650 mg PO Q6H PRN PRN Reason: PAIN LEVEL 1-5 Enoxaparin Sodium (Lovenox -) 40 mg SQ DAILY [facility] Last Admin: 05/16/18 10:29 Dose: 40 mg Gabapentin (Neurontin -) 100 mg PO TID [facility] Last Admin: 05/16/18 14:52 Dose: 100 mg Sodium Chloride (Normal Saline -) 1,000 mls @ 50 mls/hr IV ASDIR [facility] Last Admin: 05/15/18 21:44 Dose: 50 mls/hr Ketorolac Tromethamine (Toradol Injection -) 15 mg IVPUSH Q6H PRN PRN Reason: PAIN LEVEL 6-10 Stop: 05/21/18 07:49 Last Admin: 05/16/18 12:15 Dose: 15 mg Lidocaine (Lidoderm Patch -) 1 patch TP DAILY [facility] Last Admin: 05/16/18 12:15 Dose: 1 patch Miscellaneous (Lidoderm Patch Removal) 1 each MC DAILY@2200 [facility] Laboratory Results - last 24 hr 05/15/18 05/16/18 05/16/18 16:55 08:00 08:00 WBC 14.9 H RBC 4.61 Hgb 14.9 Hct 44.1 MCV 95.6 MCH 32.3 MCHC 33.8 RDW 13.4 Plt Count 259 MPV 7.4 L Absolute Neuts (auto) 11.0 H Neutrophils % 74.2 Lymphocytes % 14.2 D Monocytes % 9.8 Eosinophils % 1.5 Basophils % 0.3 Nucleated RBC % 0 ESR 4 Sodium 137 Potassium 4.5 Chloride 102 Carbon Dioxide 26 Anion Gap 9 BUN 22 H Creatinine 1.2 Creat Clearance w eGFR > 60 Random Glucose 98 Calcium 9.4 Phosphorus 3.6 Magnesium 1.9 Total Bilirubin 0.6 AST 22 ALT 26 Alkaline Phosphatase 66 D Total Protein 7.[address] right hip noted ASSESSMENT AND PLAN: 63 yom with PMHx of right hip bursitis/Arthritis, HTN, prior hip steroid injections, last 1 week ago comes with worsening right hip pain -Acute on chronic right hip pain, suspect from chronic osteoarthritis,exam not concerning, unlikely septic arthritis based on presentation and current exam -HTN Plan: Orthopedic input noted MRI right hip if fails to improve. PT eval Add neurontin/lidocaine patch. Toradol prn. resume home BP meds based on BP readings DVTPPX heparin Dispo pending improvement in pain and symptoms. Plan discussed with patient in detail, all questions answered.
[2018-05-16] MEDS ORDERED: LIDOCAINE PATCH REMOVAL MC SCH (22:00)
[2018-05-16] MEDS: SODIUM CHLORIDE 1,000 ML IV SCH (22:36)
[2018-05-17] MEDS: KETOROLAC TROMETHAMINE 15 MG/ML VIAL IVPUSH PRN ×3 (00:10→13:24)
[2018-05-17] MEDS ORDERED: RANITIDINE HCL 150 MG TABLET (FP) PO ONE (05:06)
[2018-05-17] MEDS: GABAPENTIN 100 MG CAPSULE (FP) PO SCH ×2 (05:35→13:24)
--- NOTE | 2018-05-17 07:45 | PN ---
Physical Exam: SUBJECTIVE: Patient seen and examined this AM. States his pain is improving and that his movement is better, though endorses that he was just given pain medicine and when it wears off the pain is the same as admission. Pt still complaining of knee pain in addition to the hip pain. He says that it has been worked up previously and diagnosed as arthritis, though his pain has not improved since he fell on it in January of this year. Denies fevers, chills, abdominal pain, n/v/d. OBJECTIVE: Vital Signs Period Temp Pulse Resp BP Sys/Hampton Pulse Ox Last 24 Hr 98.0 F-98.8 F 51-65 20-21 106-132/62-79 99-100 GENERAL: A&O, no acute distress HEAD: Normocephalic, atraumatic. EYES: PERRL, no scleral icterus EARS, NOSE, THROAT: oropharynx clear without exudates. Moist mucous membranes. NECK: supple without lymphadenopathy LUNGS: CTA b/l, no crackles or wheezes HEART: Regular rate and rhythm, normal S1 and S2 without murmur ABDOMEN: Soft, nontender to palpation, normoactive bowel sounds MUSCULOSKELETAL: No bony deformities. Superficial tenderness to palpation on right gluteal region with radiation down the right thigh, improving from yesterday. mild tenderness to palpation of the right knee diffusely without any specific point tenderness. good ROM. EXTREMITIES: 2+ pulses, warm, well-perfused. No peripheral edema. NEUROLOGICAL: Cranial nerves II-XII grossly intact. Normal speech. PSYCHIATRIC: Cooperative. Good eye contact. Appropriate mood and affect. SKIN: Warm, dry, no rashes or lesions noted Laboratory Results - last 24 hr 05/16/18 05/16/18 08:00 08:00 WBC 14.9 H RBC 4.61 Hgb 14.9 Hct 44.1 MCV 95.6 MCH 32.3 MCHC 33.8 RDW 13.4 Plt Count 259 MPV 7.4 L Absolute Neuts (auto) 11.0 H Neutrophils % 74.2 Lymphocytes % 14.2 D Monocytes % 9.8 Eosinophils % 1.5 Basophils % 0.3 Nucleated RBC % 0 Sodium 137 Potassium 4.5 Chloride 102 Carbon Dioxide 26 Anion Gap 9 BUN 22 H Creatinine 1.2 Creat Clearance w eGFR > 60 Random Glucose 98 Calcium 9.4 Phosphorus 3.6 Magnesium 1.9 Total Bilirubin 0.6 AST 22 ALT 26 Alkaline Phosphatase 66 D Total Protein 7.4 Albumin 3.9 Active Medications Generic Name Dose Route Start Last Admin Trade Name Freq PRN Reason Stop Dose Admin Acetaminophen 650 mg 05/16/18 07:51 Tylenol - PO Q6H PRN PAIN LEVEL 1-5 Enoxaparin Sodium 40 mg 05/15/18 20:45 05/16/18 10:29 Lovenox - SQ 40 mg DAILY ALCIRA Administration Gabapentin 100 mg 05/16/18 14:00 05/17/18 05:35 Neurontin - PO 100 mg TID ALCIRA Administration Sodium Chloride 1,000 mls @ 50 mls/hr 05/15/18 21:18 05/16/18 22:36 Normal Saline - IV 50 mls/hr ASDIR ALCIRA Administration Ketorolac Tromethamine 15 mg 05/16/18 07:50 05/17/18 06:06 Toradol Injection - IVPUSH 05/21/18 07:49 15 mg Q6H PRN Administration PAIN LEVEL 6-10 Lidocaine 1 patch 05/16/18 12:00 05/16/18 12:15 Lidoderm Patch - TP 1 patch DAILY ALCIRA Administration Miscellaneous 1 each 05/16/18 22:00 05/16/18 22:36 Lidoderm Patch Removal MC Not Given DAILY@2200 [facility] ASSESSMENT/PLAN:
[2018-05-17 08:08] LABS: BASO % 0.8 % (0-2.0); EOS % 2.1 % (0-4.5); HEMATOCRIT 40.3 % (35.4-49); HEMOGLOBIN 13.7 GM/dL (11.7-16.9); MCH 32.4 pg (25.7-33.7); MCHC 34.1 g/dl (32.0-35.9); MEAN CELL VOLUME 95.1 fl (80-96); MEAN PLT VOLUME 7.7 fl (7.5-11.1); MONO % 8.4 % (3.8-10.2); NEUT % 72.7 % (42.8-82.8); PLATELET COUNT 237 K/MM3 (134-434); RBC 4.24 M/mm3 (4.00-5.60); RDW 13.6 % (11.9-15.9); WHITE BLOOD COUNT 11.7 K/mm3 (4.0-10.0)
--- NOTE | 2018-05-17 08:44 | PN ---
Teaching Attending Note Name of Resident: Jose A Nathan ATTENDING PHYSICIAN STATEMENT I saw and evaluated the patient. I reviewed the resident's note and discussed the case with the resident. I agree with the resident's findings and plan as documented with exceptions below. SUBJECTIVE: Patient seen and examined, sleeping comfortably, when woken up reports still with right buttock pain but improved, able to move leg better, wondering about the MRI. No new concerns. OBJECTIVE: Vital Signs Period Temp Pulse Resp BP Sys/Hampton Pulse Ox Last 24 Hr 98.0 F-98.8 F 51-65 20-21 106-132/62-79 99-100 Intake & Output 05/14/18 05/15/18 05/16/18 05/17/18 23:59 23:59 23:59 23:59 Intake Total 2050 550 Output Total 1100 Balance 950 550 Weight 160 lb 7 oz General: lying in bed in no acute distress Musculoskeletal: minimal to no tenderness in right gluteal region, moving RLE freely in bed, power 5/5, no edema Laboratory Results - last 24 hr 05/16/18 05/17/18 08:00 06:20 WBC 11.7 H RBC 4.24 Hgb 13.7 Hct 40.3 MCV 95.1 MCH 32.4 MCHC 34.1 RDW 13.6 Plt Count 237 MPV 7.7 Absolute Neuts (auto) 8.5 H Neutrophils % 72.7 Lymphocytes % 16.0 Monocytes % 8.4 Eosinophils % 2.1 Basophils % 0.8 Nucleated RBC % 0 Sodium 137 Potassium 4.5 Chloride 102 Carbon Dioxide 26 Anion Gap 9 BUN 22 H Creatinine 1.2 Creat Clearance w eGFR > 60 Random Glucose 98 Calcium 9.4 Phosphorus 3.6 Magnesium 1.9 Total Bilirubin 0.6 AST 22 ALT 26 Alkaline Phosphatase 66 D Total Protein 7.4 Albumin 3.9 ASSESSMENT AND PLAN: 63 yom with PMHx of right hip bursitis/Arthritis, HTN, prior hip steroid injections, last 1 week ago comes with worsening right hip pain -Acute on chronic right hip pain, suspect from chronic osteoarthritis,exam not concerning, unlikely septic arthritis based on presentation and current exam -HTN Plan: Orthopedic input noted Improved. pain control with tylenol/toradol/gabapentin/lidocaine patch. PT eval MRI right hip if fails to improve or unable to ambulate. Resume home BP meds based on BP readings DVTPPX heparin Dispo later today if seen by PT and no concerns. Plan discussed with patient in detail, all questions answered.
[2018-05-17] MEDS: ENOXAPARIN NA (PORCINE) 40 MG/0.4 ML DISP.SYRIN SQ SCH (09:41)
[2018-05-17] MEDS: LIDOCAINE 5% TOPICAL PATCH TP SCH (09:41)
--- NOTE | 2018-05-17 11:59 | DS ---
Physical Exam: SUBJECTIVE: Patient seen and examined this AM. States his pain is improving and that his movement is better, though endorses that he was just given pain medicine and when it wears off the pain is the same as admission. Pt still complaining of knee pain in addition to the hip pain. He says that it has been worked up previously and diagnosed as arthritis, though his pain has not improved since he fell on it in January of this year. Denies fevers, chills, abdominal pain, n/v/d. OBJECTIVE: Vital Signs Period Temp Pulse Resp BP Sys/Hampton Pulse Ox Last 24 Hr 97.7 F-98.8 F 56-65 19-21 113-136/62-84 98-99 PHYSICAL EXAM GENERAL: A&O, no acute distress HEAD: Normocephalic, atraumatic. EYES: PERRL, no scleral icterus EARS, NOSE, THROAT: oropharynx clear without exudates. Moist mucous membranes. NECK: supple without lymphadenopathy LUNGS: CTA b/l, no crackles or wheezes HEART: Regular rate and rhythm, normal S1 and S2 without murmur ABDOMEN: Soft, nontender to palpation, normoactive bowel sounds MUSCULOSKELETAL: No bony deformities. Superficial tenderness to palpation on right gluteal region with radiation down the right thigh, improving from yesterday. mild tenderness to palpation of the right knee diffusely without any specific point tenderness. good ROM. EXTREMITIES: 2+ pulses, warm, well-perfused. No peripheral edema. NEUROLOGICAL: Cranial nerves II-XII grossly intact. Normal speech. PSYCHIATRIC: Cooperative. Good eye contact. Appropriate mood and affect. SKIN: Warm, dry, no rashes or lesions noted LABS Laboratory Results - last 24 hr 05/17/18 06:20 WBC 11.7 H RBC 4.24 Hgb 13.7 Hct 40.3 MCV 95.1 MCH 32.4 MCHC 34.1 RDW 13.6 Plt Count 237 MPV 7.7 Absolute Neuts (auto) 8.5 H Neutrophils % 72.7 Lymphocytes % 16.0 Monocytes % 8.4 Eosinophils % 2.1 Basophils % 0.8 Nucleated RBC % 0 IMAGING: RLE CT scan: no acute pathology seen on right hip CXR: no acute pathology HOSPITAL COURSE: Date of Admission:05/15/18 Date of Discharge: 05/17/18 The patient was admitted to the hospital with right hip and knee pain. CT was performed as above to make sure there was not a septic joint. The pain in the hip is most likely musculoskeletal and the knee pain most likely arthritic pain as it has been diagnosed in the past. The patient was seen by an orthopedic surgeon who did not recommend any surgical intervention at this time. The pain was controlled with Neurontin, Lidoderm patches, Toradol, and Tylenol. The patient was evaluated by physical therapy who deemed him medically safe to go home. The patient was set up with Home VNS and PT. Discussed thoroughly with patient the need for continued work with physical therapy for improvement of symptoms. Minutes to complete discharge: 40 Discharge Summary Reason For Visit: PAIN OF RIGHT HIP Current Active Problems Elevated WBC count (Acute) Right hip pain (Acute) Condition: Good - Instructions Diet, Activity, Other Instructions: You were admitted to the hospital with right hip and knee pain. Imaging was performed to make sure there was not any infection in your joints. The pain in your hip is most likely musculoskeletal and the knee pain most likely arthritic pain as it has been diagnosed in the past. You were seen by an orthopedic surgeon who did not recommend any surgical intervention at this time. You were given anti-inflammatory medications and a medication, Neurontin, which helps with nerve pain, while you were in the hospital. You were evaluated by physical therapy and deemed medically safe to be discharged to home. You should follow up with your primary care physician within 1-2 weeks. You should follow up with an orthopedic surgeon within 1-2 weeks. Referrals: Duncan Franco MD [Staff Physician] - Disposition: VNS/HOME HEALTH CARE - Home Medications Comprehensive Discharge Medication List: Ambulatory Orders Naproxen 500 mg PO BID 05/16/18 Olmesartan/Hydrochlorothiazide [Olmesartan-Hctz 20-12.5 mg Tab] 1 tablet PO DAILY 05/16/18 Acetaminophen [Tylenol .Regular Strength -] 650 mg PO Q6H PRN tablet 05/17/18 Gabapentin [Neurontin -] 100 mg PO TID #42 capsule 05/17/18 Lidocaine 5% Patch [Lidoderm -] 1 patch TP DAILY #7 patch 05/17/18 This patient is new to me today: No Emergency Visit: Yes ED Registration Date: 05/15/18 Care time: The patient presented to the Emergency Department on the above date and was hospitalized for further evaluation of their emergent condition. Critical Care patient: No - Discharge Referral Referred to [facility] Med P.C.: No
[2018-05-17 15:01] VITALS: BP 126/74; PULSE 80; TEMP 98.6
== END 2018-05-17 18:17 | disposition home health service (06) ==
LOC: JERFT 14:09 → JER 14:09 → JERBED 19:49 → J6S 05-16 02:22
PROVIDERS: ADMIT Internal Medicine; ATTEND Hospitalist
PROC: 3E03329 Introduction of Other Anti-infective into Peripheral Vein, Percutaneous Approach (ICD-10-PCS; principal; 2018-05-15)
PROC: 3E0333Z Introduction of Anti-inflammatory into Peripheral Vein, Percutaneous Approach (ICD-10-PCS; 2018-05-15)
PROC: 3E033NZ Introduction of Analgesics, Hypnotics, Sedatives into Peripheral Vein, Percutaneous Approach (ICD-10-PCS; 2018-05-15)
PROC: 3E0337Z Introduction of Electrolytic and Water Balance Substance into Peripheral Vein, Percutaneous Approach (ICD-10-PCS; 2018-05-15)
DX: D72.829 Elevated white blood cell count, unspecified (principal); M25.551 Pain in right hip; I10 Essential (primary) hypertension; F17.210 Nicotine dependence, cigarettes, uncomplicated; M71.551 Other bursitis, not elsewhere classified, right hip; M13.861 Other specified arthritis, right knee
CPT/HCPCS: 36415; 71045-TC-FY; 73700-TC-RT; 80053; 83735; 83970; 84100; 85025; 85651; 86140; 87040; 93005; 93010; 96365; 96372; 96375; 97116-GP; 97161-GP; 99285-25; G0378; J7030; Q0162

== ENCOUNTER 2018-06-20 13:13 | Inpatient (IN) | payer OTHER ==
[2018-06-20 13:18] VITALS: BMI 25.8
[2018-06-20] MEDS ORDERED: CYCLOBENZAPRINE HCL 10 MG TABLET (FP) PO ONE (14:31)
[2018-06-20] MEDS ORDERED: ACETAMINOPHEN 325 MG TABLET (FP) PO ONE (14:31)
[2018-06-20] MEDS ORDERED: GABAPENTIN 300 MG CAPSULE (FP) PO ONE (14:31)
--- NOTE | 2018-06-20 14:44 | PDOC ---
History of Present Illness - General Chief Complaint: Chronic pain Stated Complaint: PAIN History Source: Patient - History of Present Illness Initial Comments: The patient is a 63M w/ a history of HTN and chronic R hip/knee pain presents for evaluation for persistent R hip pain. The patient reports falling onto his right knee several months ago, after which he states he has had chronic R knee pain. He then developed R hip pain described as sharp/electric pain that starts in his R paraspinous region and radiates towards his groin and down his medial thigh to his ant. robertson and medial foot. He reports parasthesias to his R ant. robertson and medial foot. He states that the pain is worse with laying flat and has limited his mobility of walking w/ a cane to short distances (approx 20-30ft). He was scheduled to have an MRI performed as an outpatient this past Saturday but was unable to tolerate the study. He contacted his Neurologist who told him to present to [facility] for admission for MRI and evaluation. The patient denies recent fevers/chills, chest pain, HINTON, SOB, falls, or recent trauma PCP: Dr. Carlos Alfonso 06/20/18 14:36 Past History - Past Medical History Allergies/Adverse Reactions: Allergies Allergy/AdvReac Type Severity Reaction Status Date / Time No Known Allergies Allergy Verified 06/20/18 13:16 Home Medications: Ambulatory Orders Naproxen 500 mg PO BID 05/16/18 Olmesartan/Hydrochlorothiazide [Olmesartan-Hctz 20-12.5 mg Tab] 1 tablet PO DAILY 05/16/18 Acetaminophen [Tylenol .Regular Strength -] 650 mg PO Q6H PRN tablet 05/17/18 Gabapentin [Neurontin -] 100 mg PO Q8H #42 capsule 05/17/18 Gabapentin [Neurontin -] 100 mg PO TID #42 capsule 05/17/18 Lidocaine 5% Patch [Lidoderm -] 1 patch TP DAILY #7 patch 05/17/18 Lidocaine 5% Patch [Lidoderm Patch -] 1 patch TP DAILY #7 patch 05/17/18 COPD: No HTN: Yes - Suicide/Smoking/Psychosocial Hx Smoking History: Current some day smoker Have you smoked in the past 12 months: Yes Number of Cigarettes Smoked Daily: 3 Information on smoking cessation initiated: No 'Breaking Loose' booklet given: 05/15/18 Hx Alcohol Use: Yes (social) Drug/Substance Use Hx: No Substance Use Type: None Review of Systems - Review of Systems Able to Perform ROS?: Yes Comments:: GENERAL/CONSTITUTIONAL: No fever or chills. No weakness HEAD, EYES, EARS, NOSE AND THROAT: No change in vision. No ear pain or discharge. No sore throat CARDIOVASCULAR: No chest pain or shortness of breath RESPIRATORY: No cough, wheezing, or hemoptysis GASTROINTESTINAL: No nausea, vomiting, diarrhea or constipation GENITOURINARY: No dysuria, frequency, or change in urination MUSCULOSKELETAL: per HPI SKIN: No rash NEUROLOGIC: No headache, vertigo, loss of consciousness, or change in strength/ sensation ENDOCRINE: No increased thirst. No abnormal weight change HEMATOLOGIC/LYMPHATIC: No anemia, easy bleeding, or history of blood clots ALLERGIC/IMMUNOLOGIC: No hives or skin allergy 06/20/18 16:47 Is the patient limited Lebanese proficient: No *Physical Exam - Vital Signs Last Vital Signs Temp Pulse Resp BP Pulse Ox 97.7 F 111 H 18 107/77 99 06/20/18 13:16 06/20/18 13:16 06/20/18 13:16 06/20/18 13:16 06/20/18 13:16 - Physical Exam Comments: NERAL: Awake, alert, and fully oriented, in no acute distress HEAD: No signs of trauma, normocephalic, atraumatic EYES: PERRL, EOMI, sclera anicteric, conjunctiva clear ENT: Hearing grossly normal, nares patent, oropharynx clear without exudates. Moist mucosa NECK: Normal ROM, supple LUNGS: No distress, speaks full sentences, clear to auscultation bilaterally HEART:Regular rate and rhythm, normal S1 and S2, no murmurs appreciated, peripheral pulses normal and equal bilaterally ABDOMEN: Soft, nontender, normoactive bowel sounds. No guarding, no rebound. No masses NEUROLOGICAL: Cranial nerves II through XII grossly intact. Decreased sensation to light touch over R ant robertson and medial foot SKIN: Warm, Dry, normal turgor, no rashes or lesions noted RLE: Inspection: No erythema or ecchymosis. No open wounds. Compartments soft and compressible, pain within proportion Knee stable to anterior/posterior drawer and varus/valgus stress Sensation: Decreased sensation to light touch over R ant robertson and medial foot Motor: 5/5 EHL, 5/5 FHL, 4/5 TA 2/2 pain, 4/5GS 2/2 pain, 3/5 Quad 2/2 pain, 3/ 5 Ham 2/2 pain Vascular: 2+ DP/PT, all toes BCR <2 sec LLE: Inspection: No erythema or ecchymosis. No tenderness, no obvious abnormalities, no open wounds. Compartments soft and compressible, pain within proportion, no pain to passive stretch Knee stable to anterior/posterior drawer and varus/valgus stress Sensation: SPLT DP, SP, Tib, Scarlett, Saph sensation to light touch intact Motor: 5/5 EHL, 5/5 FHL, 5/5 TA, 5/5GS, 5/5 Quad, 5/5 Ham Vascular: 2+ DP/PT, all toes BCR <2 sec 06/22/18 07:18 ED Treatment Course - LABORATORY CBC & Chemistry Diagram: 06/21/18 06:30 06/21/18 06:30 Medical Decision Making - Medical Decision Making The patient is a 63M who presents for evaluation of chronic R hip/leg pain w/ associated decreased sensation to light touch over the anterior robertson and medial foot. PCP: Dr. Carlos Alfonso ED Course Spoke w/ patient's Neurologist, Dr. Ethan Hernandez. Per his Neurologist, he is to be admitted for MRI of his R hip Will give Tylenol 975mg PO once, Gabapentin 300mg PO once, and Flexeril 5mg PO once for pain -Patient takes Tylenol and Gabapentin at home regularly and reports historical pain relief w/ flexeril Will obtain CMP and CBC Plan for admission for MRI evaluation of RLE and for RLE neuro changes Dispo: Admit 06/20/18 15:11 *DC/Admit/Observation/Transfer Diagnosis at time of Disposition: Nerve pain, Decreased sensation of lower extremity - Discharge Dispostion Condition at time of disposition: Good Decision to Admit order: Yes - Referrals - Patient Instructions - Post Discharge Activity
[2018-06-20] MEDS ORDERED: ACETAMINOPHEN 325 MG TABLET (FP) ONE (14:54)
[2018-06-20] MEDS ORDERED: CYCLOBENZAPRINE HCL 10 MG TABLET (FP) ONE (14:55)
[2018-06-20] MEDS ORDERED: GABAPENTIN 100 MG CAPSULE (FP) ONE (14:55)
[2018-06-20 16:18] LABS: HEMATOCRIT 35.8 % (35.4-49); HEMOGLOBIN 12.3 GM/dL (11.7-16.9); MCH 32.5 pg (25.7-33.7); MCHC 34.4 g/dl (32.0-35.9); MEAN CELL VOLUME 94.3 fl (80-96); MEAN PLT VOLUME 7.6 fl (7.5-11.1); PLATELET COUNT 298 K/MM3 (134-434); RDW 14.1 % (11.9-15.9); WHITE BLOOD COUNT 12.8 K/mm3 (4.0-10.0)
[2018-06-20 17:02] LABS: ALBUMIN 4.2 g/dl (3.4-5.0); ALK PHOS 56 U/L (45-117); ANION GAP 10 MMOL/L (8-16); BILIRUBIN,TOTAL 0.5 mg/dL (0.2-1); BLOOD UREA NITROGEN 20 mg/dL (7-18); CALCIUM 9.7 mg/dL (8.5-10.1); CHLORIDE 103 mmol/L (98-107); CO2 23 mmol/L (21-32); CREATININE 1.3 mg/dL (0.55-1.3); GLUCOSE,RANDOM 114 mg/dL (74-106); POTASSIUM 4.3 mmol/L (3.5-5.1); SGOT/AST 17 U/L (15-37); SGPT/ALT 22 U/L (13-61); SODIUM 135 mmol/L (136-145); TOT PROT 7.8 g/dl (6.4-8.2)
--- NOTE | 2018-06-20 18:06 | HP ---
CHIEF COMPLAINT: right hip pain, inability to ambulate PCP: Dr. Carlos Alfonso. HISTORY OF PRESENT ILLNESS: The patient is a 63 male with a past medical history of hypertension and chronic right hip/knee pain that presents to the ED for persistent right hip pain. The patient reports falling onto his right knee several months ago and since then has been having severe right hip pain that he describes as sharp that comes on suddenly. The right hip pain is described as very sharp and often radiates to this right para-spinous area and radiates to his groin and down his right thigh. He reports parasthesia to his anterior robertson down to his ankle. Patient was scheduled to have an MRI outpatient, but could not tolerate the pain. He was sent to the ED by his neurologist for MRI and pain control. ER course was notable for: (1) wbc 12.8 (2) (3) PAST MEDICAL HISTORY: hypertension PAST SURGICAL HISTORY: Social History: Smoking: occasionally, trying to quit altogether, a few cigarrettes Alcohol: social Drugs: denies Family History: Allergies No Known Allergies Allergy (Verified 06/20/18 13:16) HOME MEDICATIONS: Home Medications Medication Instructions Recorded Naproxen 500 mg PO BID 05/16/18 Olmesartan/Hydrochlorothiazide 1 tablet PO DAILY 05/16/18 [Olmesartan-Hctz 20-12.5 mg Tab] Acetaminophen [Tylenol .Regular 650 mg PO Q6H PRN tablet 05/17/18 Strength -] Gabapentin [Neurontin -] 100 mg PO Q8H #42 capsule 05/17/18 Gabapentin [Neurontin -] 100 mg PO TID #42 capsule 05/17/18 Lidocaine 5% Patch [Lidoderm -] 1 patch TP DAILY #7 patch 05/17/18 Lidocaine 5% Patch [Lidoderm Patch 1 patch TP DAILY #7 patch 05/17/18 -] PHYSICAL EXAMINATION Vital Signs - 24 hr 06/20/18 06/20/18 13:16 14:40 Temperature 97.7 F Pulse Rate 111 H Respiratory 18 Rate Blood Pressure 107/77 O2 Sat by Pulse 99 99 Oximetry (%) GENERAL: Awake, alert, and fully oriented, in no acute distress. HEAD: Normal with no signs of trauma. EYES: Pupils equal, round and reactive to light, extraocular movements intact, sclera anicteric, conjunctiva clear. No lid lag. EARS, NOSE, THROAT: Ears normal, nares patent, oropharynx clear without exudates. Moist mucous membranes. NECK: Normal range of motion, supple without lymphadenopathy, JVD, or masses. LUNGS: Breath sounds equal, clear to auscultation bilaterally. No wheezes, and no crackles. No accessory muscle use. HEART: Regular rate and rhythm ABDOMEN: Soft, nontender, not distended, normoactive bowel sounds, no guarding, no rebound, no masses. No hepatomegaly or splenomegaly. MUSCULOSKELETAL: Normal range of motion at all joints. No bony deformities or tenderness. No CVA tenderness. UPPER EXTREMITIES: No peripheral edema. LOWER EXTREMITIES: No peripheral edema. NEUROLOGICAL: Cranial nerves II-XII intact. Normal speech. Normal gait. PSYCHIATRIC: Cooperative. Good eye contact. Appropriate mood and affect. SKIN: Warm, dry, normal turgor, no rashes or lesions noted, normal capillary refill. Laboratory Results - last 24 hr 06/20/18 06/20/18 16:05 16:05 WBC 12.8 H RBC 3.80 L Hgb 12.3 Hct 35.8 MCV 94.3 MCH 32.5 MCHC 34.4 RDW 14.1 Plt Count 298 D MPV 7.6 Sodium 135 L Potassium 4.3 Chloride 103 Carbon Dioxide 23 Anion Gap 10 BUN 20 H Creatinine 1.3 Creat Clearance w eGFR 56.12 Random Glucose 114 H Calcium 9.7 Total Bilirubin 0.5 AST 17 ALT 22 Alkaline Phosphatase 56 Total Protein 7.8 Albumin 4.2 ASSESSMENT/PLAN: The patient is a 63 male with a past medical history of hypertension and chronic right hip/knee pain that presents to the ED for persistent right hip pain. The patient reports falling onto his right knee several months ago and since then has been having severe right hip pain that he describes as sharp that comes on suddenly. The right hip pain is described as very sharp and often radiates to this right para-spinous area and radiates to his groin and down his right thigh. He reports parasthesia to his anterior robertson down to his ankle. Patient was scheduled to have an MRI outpatient, but could not tolerate the pain. He was sent to the ED by his neurologist for MRI and pain control. Problem list: Hypertension Right hip pain, severe chávez Card: Hypertension: controlled. On olmesartan/Hydrochlorothiazide. monitor bp. Neuro: Right hip pain. For MRI of right hip joint and lumbar spine. Pain managed with: Neurontin 100mg tid Flexiril tid Oxycodone 5mg Baclophen Naproxen bid lidoderm fen PO intake, regular diet monitor electrolytes prophy scds if LOS > 48 hours, will initiate hepain full code. Visit type - Emergency Visit Emergency Visit: Yes ED Registration Date: 06/20/18 Care time: The patient presented to the Emergency Department on the above date and was hospitalized for further evaluation of their emergent condition. - New Patient This patient is new to me today: No - Critical Care Critical Care patient: No
--- NOTE | 2018-06-20 19:43 | PDOC ---
Attending Attestation - Resident Resident Name: HarrisRiver - ED Attending Attestation I have performed the following: I have examined & evaluated the patient, The case was reviewed & discussed with the resident, I agree w/resident's findings & plan, Exceptions are as noted - HPI HPI: 06/20/18 19:38 63 yo male with h/o lower back pain, h;o right hip bursitis. here with worsening back pain radiating down his right leg. started after a fall a few weeks ago. denies bowel or bladder incontinence. no f/c no weakness does have decreased sensation alexsander right inside leg. was scheduled for outpt mri . pt unable to tolerate exam due to pain , sent to ed by nuerologist for admission for workup and mri , - Physicial Exam PE: 06/20/18 19:40 awake alert lungs clear bilaterally heart rrr no mrg.abd soft nt nd. ext wwp. nuero alert oriented x 3. strength 5/5 bilat lower ext. decreased sensation inside right lower leg. right paraspinal muscle pain and tenderness. skin warm and dry no rash. - Medical Decision Making 06/20/18 19:41 differential diagnosis sciatica, cord or nerve root compromise. infection such as uti, plan labs ua. pain control. will likely require admission for MRI due to decreased sensation on exam. d/w nuerologist, will see in patient.
[2018-06-20] MEDS ORDERED: NAPROXEN 500 MG TABLET (FP) PO SCH (22:00)
[2018-06-20] MEDS: CYCLOBENZAPRINE HCL 5 MG TABLET PO SCH (22:32)
[2018-06-20] MEDS: GABAPENTIN 100 MG CAPSULE (FP) PO SCH (22:34)
[2018-06-20] MEDS: NAPROXEN 500 MG TABLET (FP) PO PRN (22:34)
[2018-06-20] MEDS: ACETAMINOPHEN 325 MG TABLET (FP) PO PRN (22:36)
[2018-06-20] MEDS: oxyCODONE HCL 5 MG TABLET PO PRN (22:37)
[2018-06-21] MEDS: CYCLOBENZAPRINE HCL 5 MG TABLET PO SCH ×3 (06:13→21:31)
[2018-06-21] MEDS: GABAPENTIN 100 MG CAPSULE (FP) PO SCH ×3 (06:13→21:32)
[2018-06-21] MEDS: ACETAMINOPHEN 325 MG TABLET (FP) PO PRN ×2 (06:13→15:59)
[2018-06-21] MEDS: oxyCODONE HCL 5 MG TABLET PO PRN ×3 (06:14→15:59)
[2018-06-21 08:07] LABS: HEMATOCRIT 33.7 % (35.4-49); HEMOGLOBIN 11.5 GM/dL (11.7-16.9); MCH 32.4 pg (25.7-33.7); MCHC 34.2 g/dl (32.0-35.9); MEAN CELL VOLUME 94.9 fl (80-96); MEAN PLT VOLUME 7.8 fl (7.5-11.1); PLATELET COUNT 273 K/MM3 (134-434); RBC 3.55 M/mm3 (4.00-5.60); WHITE BLOOD COUNT 11.5 K/mm3 (4.0-10.0)
[2018-06-21 08:27] LABS: ANION GAP 7 MMOL/L (8-16); BLOOD UREA NITROGEN 25 mg/dL (7-18); CALCIUM 9.9 mg/dL (8.5-10.1); CHLORIDE 103 mmol/L (98-107); CO2 26 mmol/L (21-32); CREATININE 1.3 mg/dL (0.55-1.3); GLUCOSE,RANDOM 77 mg/dL (74-106); POTASSIUM 5.1 mmol/L (3.5-5.1); SODIUM 136 mmol/L (136-145)
--- NOTE | 2018-06-21 08:35 | PN ---
Physical Exam: SUBJECTIVE: Patient seen and examined OBJECTIVE: Vital Signs Period Temp Pulse Resp BP Sys/Hampton Pulse Ox Last 24 Hr 97.7 F-98.5 F 62-111 18-20 93-129/60-77 95-99 GENERAL: Awake, alert, and fully oriented, in no acute distress. HEAD: Normal with no signs of trauma. EYES: Pupils equal, round and reactive to light, extraocular movements intact, sclera anicteric, conjunctiva clear. No lid lag. EARS, NOSE, THROAT: Ears normal, nares patent, oropharynx clear without exudates. Moist mucous membranes. NECK: Normal range of motion, supple without lymphadenopathy, JVD, or masses. LUNGS: Breath sounds equal, clear to auscultation bilaterally. No wheezes, and no crackles. No accessory muscle use. HEART: Regular rate and rhythm ABDOMEN: Soft, nontender, not distended, normoactive bowel sounds, no guarding, no rebound, no masses. No hepatomegaly or splenomegaly. MUSCULOSKELETAL: Normal range of motion at all joints. No bony deformities or tenderness. No CVA tenderness. UPPER EXTREMITIES: No peripheral edema. LOWER EXTREMITIES: No peripheral edema. NEUROLOGICAL: Cranial nerves II-XII intact. Normal speech. Normal gait. PSYCHIATRIC: Cooperative. Good eye contact. Appropriate mood and affect. SKIN: Warm, dry, normal turgor, no rashes or lesions noted, normal capillary refill. Laboratory Results - last 24 hr 06/20/18 06/20/18 06/21/18 16:05 16:05 06:30 WBC 12.8 H 11.5 H RBC 3.80 L 3.55 L Hgb 12.3 11.5 L Hct 35.8 33.7 L MCV 94.3 94.9 MCH 32.5 32.4 MCHC 34.4 34.2 RDW 14.1 14.0 Plt Count 298 D 273 MPV 7.6 7.8 Sodium 135 L Potassium 4.3 Chloride 103 Carbon Dioxide 23 Anion Gap 10 BUN 20 H Creatinine 1.3 Creat Clearance w eGFR 56.12 Random Glucose 114 H Calcium 9.7 Magnesium Total Bilirubin 0.5 AST 17 ALT 22 Alkaline Phosphatase 56 Total Protein 7.8 Albumin 4.2 06/21/18 06:30 WBC RBC Hgb Hct MCV MCH MCHC RDW Plt Count MPV Sodium 136 Potassium 5.1 Chloride 103 Carbon Dioxide 26 Anion Gap 7 L BUN 25 H Creatinine 1.3 Creat Clearance w eGFR 56.12 Random Glucose 77 Calcium 9.9 Magnesium 2.0 Total Bilirubin AST ALT Alkaline Phosphatase Total Protein Albumin Active Medications Generic Name Dose Route Start Last Admin Trade Name Freq PRN Reason Stop Dose Admin Acetaminophen 650 mg 06/20/18 17:51 06/21/18 06:13 Tylenol - PO 650 mg Q6H PRN Administration PAIN LEVEL 7 - 10 Cyclobenzaprine HCl 5 mg 06/20/18 22:00 06/21/18 06:13 Cyclobenzaprine Hcl PO 5 mg TID [facility] Administration Gabapentin 100 mg 06/20/18 22:00 06/21/18 06:13 Neurontin - PO 100 mg TID [facility]A Administration Hydrochlorothiazide 12.5 mg 06/21/18 10:00 Hctz - PO DAILY [facility] Lidocaine 1 patch 06/21/18 10:00 Lidoderm Patch - TP DAILY [facility] Naproxen 500 mg 06/20/18 19:30 06/20/18 22:34 Naprosyn - PO 500 mg Q12H PRN Administration PAIN LEVEL 4 - 6 Oxycodone HCl 5 mg 06/21/18 08:21 Roxicodone - PO Q4H PRN PAIN LEVEL 7 - 10 Valsartan 160 mg 06/21/18 10:00 Diovan - PO DAILY [facility] ASSESSMENT/PLAN: The patient is a 63 male with a past medical history of hypertension and chronic right hip/knee pain that presents to the ED for persistent right hip pain. The patient reports falling onto his right knee several months ago and since then has been having severe right hip pain that he describes as sharp that comes on suddenly. The right hip pain is described as very sharp and often radiates to this right para-spinous area and radiates to his groin and down his right thigh. He reports parasthesia to his anterior robertson down to his ankle. Patient was scheduled to have an MRI outpatient, but could not tolerate the pain. He was sent to the ED by his neurologist for MRI and pain control. Problem list: Hypertension Right hip pain, severe chávez Card: Hypertension: controlled. On olmesartan/Hydrochlorothiazide. monitor bp. Neuro: Right hip pain. For MRI of right hip joint and lumbar spine. Pain managed with: Neurontin 100mg tid Flexiril tid Oxycodone 5mg morphine 1mg ivpush Baclophen Naproxen bid lidoderm fen PO intake, regular diet monitor electrolytes prophy scds if LOS > 48 hours, will initiate heparin full code. Visit type - Emergency Visit Emergency Visit: Yes ED Registration Date: 06/20/18 Care time: The patient presented to the Emergency Department on the above date and was hospitalized for further evaluation of their emergent condition. - New Patient This patient is new to me today: No - Critical Care Critical Care patient: No - Discharge Referral Referred to [facility] Med P.C.: No
[2018-06-21] MEDS: LIDOCAINE 5% TOPICAL PATCH TP SCH ×2 (10:45→14:54)
[2018-06-21] MEDS: VALSARTAN 160 MG TABLET (UD) PO SCH (11:42)
[2018-06-21] MEDS: HYDROCHLOROTHIAZIDE 12.5 MG CAPSULE (FP) PO SCH (11:42)
[2018-06-21] MEDS: NAPROXEN 500 MG TABLET (FP) PO PRN (14:54)
[2018-06-21] MEDS ORDERED: PT OWN MED DRAWER 7, Y5N ONE (14:55)
--- NOTE | 2018-06-21 15:00 | CON.NEURO ---
Consult Consult Specialty:: NEUROLOGY - History of Present Illness Chief Complaint: lbp History of Present Illness: 63 yo male with h/o lower back pain, h/o right hip bursitis. here with worsening back pain radiating down his right leg. started after a fall a few weeks ago.\; denies bowel or bladder incontinence ;no f/c no weakness does have decreased sensation medial R leg . - Alcohol/Substance Use Hx Alcohol Use: Yes (social) - Smoking History Smoking history: Current some day smoker Have you smoked in the past 12 months: Yes Aproximately how many cigarettes per day: 3 Home Medications - Allergies Allergies/Adverse Reactions: Allergies Allergy/AdvReac Type Severity Reaction Status Date / Time No Known Allergies Allergy Verified 06/20/18 13:16 - Home Medications Home Medications: Ambulatory Orders Naproxen 500 mg PO BID 05/16/18 Olmesartan/Hydrochlorothiazide [Olmesartan-Hctz 20-12.5 mg Tab] 1 tablet PO DAILY 05/16/18 Acetaminophen [Tylenol .Regular Strength -] 650 mg PO Q6H PRN tablet 05/17/18 Gabapentin [Neurontin -] 100 mg PO Q8H #42 capsule 05/17/18 Gabapentin [Neurontin -] 100 mg PO TID #42 capsule 05/17/18 Lidocaine 5% Patch [Lidoderm -] 1 patch TP DAILY #7 patch 05/17/18 Lidocaine 5% Patch [Lidoderm Patch -] 1 patch TP DAILY #7 patch 05/17/18 Review of Systems - Review of Systems Constitutional: reports: No Symptoms Eyes: reports: No Symptoms HENT: reports: No Symptoms Neck: reports: No Symptoms Cardiovascular: reports: No Symptoms Respiratory: reports: No Symptoms Gastrointestinal: reports: No Symptoms Genitourinary: reports: No Symptoms Physical Exam-Neuro Vital Signs: Vital Signs Temperature 98.3 F 06/21/18 14:08 Pulse Rate 100 H 06/21/18 14:08 Respiratory Rate 20 06/21/18 14:08 Blood Pressure 100/78 06/21/18 14:08 O2 Sat by Pulse Oximetry (%) 98 06/21/18 09:00 Constitutional: Yes: Well Nourished, No Distress, Calm Neck: Yes: WNL Cardiovascular: Yes: WNL Respiratory: Yes: WNL Edema: No Psychiatric: Yes: WNL Labs: CBC, BMP 06/21/18 06:30 06/21/18 06:30 - Neuro Exam Level Of Consciousness: Yes: Alert, Oriented to Person, Oriented to Place, Oriented to Time Eyes: Yes: PERRLA Speech: WNL Cranial Nerves II-XII Intact: Yes Gag: Present DTR's: 1+ Right Achilles (R knee absent ), 2+ Left Bicep, 2+ Right Bicep, 2+ Left Tricep, 2+ Right Tricep Babinski: Absent Response to light touch: Abnormal (Med R leg decrease ) Coordination: Normal: Finger to Nose Motor Strength: 4/5: Right Leg (limited due to pain ), 5/5: Left Leg, Right Arm , Left Arm Problem List - Problems (1) Right hip pain Code(s): M25.551 - PAIN IN RIGHT HIP (2) Back pain Code(s): M54.9 - DORSALGIA, UNSPECIFIED Assessment/Plan LBP and hip pain due to ? LS-radiculopathy vs sciatica vs trochanteric bursitis Increase gabapentin 300 mg bid c/w flexeril MRI-LS pending MRI hip pending PT/OT Tramadol PRN Health maintenance per primary team Kalli Hernandez MD
[2018-06-21] MEDS ORDERED: LORazepam 2 MG/ML SDV VIAL IVPUSH ONE (16:30)
[2018-06-21] MEDS ORDERED: MORPHINE SULFATE 2 MG/ML VIAL IVPUSH STA (16:51)
[2018-06-21] MEDS ORDERED: MORPHINE SULFATE 2 MG/ML VIAL IVPUSH PRN (16:57)
[2018-06-21] MEDS: DOCUSATE SODIUM 100 MG CAPSULE (FP) PO SCH (21:31)
[2018-06-21] MEDS: POLYETHYLENE GLYCOL 3350 119 GM BTL PO SCH (21:32)
[2018-06-21] MEDS: LIDOCAINE PATCH REMOVAL MC SCH (21:32)
[2018-06-22] MEDS: CYCLOBENZAPRINE HCL 5 MG TABLET PO SCH ×3 (05:53→21:46)
[2018-06-22] MEDS: DOCUSATE SODIUM 100 MG CAPSULE (FP) PO SCH ×3 (05:53→21:47)
[2018-06-22] MEDS: oxyCODONE HCL 5 MG TABLET PO PRN ×2 (05:57→10:00)
[2018-06-22] MEDS ORDERED: PT OWN MED DRAWER 7, Y5N ONE ×2 (06:33→21:09)
[2018-06-22 09:43] LABS: EOS % 3.5 % (0-4.5); HEMATOCRIT 33.6 % (35.4-49); HEMOGLOBIN 11.4 GM/dL (11.7-16.9); LYMPH % 21.3 % (8-40); MCH 32.5 pg (25.7-33.7); MEAN CELL VOLUME 95.7 fl (80-96); MEAN PLT VOLUME 7.7 fl (7.5-11.1); MONO % 9.1 % (3.8-10.2); NEUT % 65.1 % (42.8-82.8); PLATELET COUNT 262 K/MM3 (134-434); RBC 3.51 M/mm3 (4.00-5.60); WHITE BLOOD COUNT 8.5 K/mm3 (4.0-10.0)
[2018-06-22] MEDS: ACETAMINOPHEN 325 MG TABLET (FP) PO PRN (09:59)
[2018-06-22] MEDS: GABAPENTIN 100 MG CAPSULE (FP) PO SCH ×2 (10:00→21:46)
[2018-06-22] MEDS: NAPROXEN 500 MG TABLET (FP) PO PRN (10:02)
[2018-06-22 11:03] LABS: ALBUMIN 3.8 g/dl (3.4-5.0); ALK PHOS 55 U/L (45-117); ANION GAP 9 MMOL/L (8-16); BILIRUBIN,TOTAL 0.7 mg/dL (0.2-1); BLOOD UREA NITROGEN 27 mg/dL (7-18); CALCIUM 9.1 mg/dL (8.5-10.1); CHLORIDE 102 mmol/L (98-107); CO2 23 mmol/L (21-32); CREATININE 1.2 mg/dL (0.55-1.3); GLUCOSE,RANDOM 132 mg/dL (74-106); MAGNESIUM 1.9 mg/dL (1.8-2.4); POTASSIUM 4.4 mmol/L (3.5-5.1); SGOT/AST 18 U/L (15-37); SGPT/ALT 23 U/L (13-61); SODIUM 135 mmol/L (136-145); TOT PROT 7.2 g/dl (6.4-8.2)
[2018-06-22] MEDS ORDERED: diazePAM 2 MG TABLET PO ONE (13:15)
[2018-06-22] MEDS: HYDROCHLOROTHIAZIDE 12.5 MG CAPSULE (FP) PO SCH (14:02)
[2018-06-22] MEDS: VALSARTAN 160 MG TABLET (UD) PO SCH (14:02)
[2018-06-22] MEDS: LIDOCAINE 5% TOPICAL PATCH TP SCH ×2 (16:29)
[2018-06-22] MEDS: HYDROmorphone HCL 2 MG TABLET PO PRN (16:51)
[2018-06-22] MEDS: POLYETHYLENE GLYCOL 3350 119 GM BTL PO SCH ×2 (18:39→21:45)
--- NOTE | 2018-06-22 19:51 | PN ---
Physical Exam: SUBJECTIVE: Patient seen and examined at the bedside. again tried to do the hip mri, but unable to lay still. given valium 2mg, and narcotics prior. but still unable to tolerate. discussed with patient new plan: will give dilaudid 2mg tonight and again tomorrow before mri. spoke to patient's neurologist and made him aware of plan. Dilaudid is a stronger pain reliever and may help him tolerate the test. OBJECTIVE: Vital Signs Period Temp Pulse Resp BP Sys/Hampton Pulse Ox Last 24 Hr 97.5 F-98.0 F 62-87 18-20 98-130/58-79 98 GENERAL: Awake, alert, and fully oriented, in no acute distress. HEAD: Normal with no signs of trauma. EYES: Pupils equal, round and reactive to light, extraocular movements intact, sclera anicteric, conjunctiva clear. No lid lag. EARS, NOSE, THROAT: Ears normal, nares patent, oropharynx clear without exudates. Moist mucous membranes. NECK: Normal range of motion, supple without lymphadenopathy, JVD, or masses. LUNGS: Breath sounds equal, clear to auscultation bilaterally. No wheezes, and no crackles. No accessory muscle use. HEART: Regular rate and rhythm ABDOMEN: Soft, nontender, not distended, normoactive bowel sounds, no guarding, no rebound, no masses. No hepatomegaly or splenomegaly. MUSCULOSKELETAL: Normal range of motion at all joints. No bony deformities or tenderness. No CVA tenderness. UPPER EXTREMITIES: No peripheral edema. LOWER EXTREMITIES: No peripheral edema. NEUROLOGICAL: Cranial nerves II-XII intact. Normal speech. Normal gait. PSYCHIATRIC: Cooperative. Good eye contact. Appropriate mood and affect. SKIN: Warm, dry, normal turgor, no rashes or lesions noted, normal capillary refill. Laboratory Results - last 24 hr 06/22/18 06/22/18 09:00 09:00 WBC 8.5 RBC 3.51 L Hgb 11.4 L Hct 33.6 L MCV 95.7 MCH 32.5 MCHC 34.0 RDW 14.0 Plt Count 262 MPV 7.7 Absolute Neuts (auto) 5.6 Neutrophils % 65.1 Lymphocytes % 21.3 D Monocytes % 9.1 Eosinophils % 3.5 Basophils % 1.0 Nucleated RBC % 0 Sodium 135 L Potassium 4.4 Chloride 102 Carbon Dioxide 23 Anion Gap 9 BUN 27 H Creatinine 1.2 Creat Clearance w eGFR > 60 Random Glucose 132 H Calcium 9.1 Magnesium 1.9 Total Bilirubin 0.7 AST 18 ALT 23 Alkaline Phosphatase 55 Total Protein 7.2 Albumin 3.8 Active Medications Generic Name Dose Route Start Last Admin Trade Name Freq PRN Reason Stop Dose Admin Acetaminophen 650 mg 06/20/18 17:51 06/22/18 09:59 Tylenol - PO 650 mg Q6H PRN Administration PAIN LEVEL 7 - 10 Cyclobenzaprine HCl 5 mg 06/20/18 22:00 06/22/18 14:05 Cyclobenzaprine Hcl PO 5 mg TID ALCIRA Administration Docusate Sodium 100 mg 06/21/18 22:00 06/22/18 16:51 Colace - PO 100 mg TID ALCIRA Administration Gabapentin 300 mg 06/21/18 22:00 06/22/18 10:00 Neurontin - PO 300 mg BID [facility]A Administration Hydrochlorothiazide 12.5 mg 06/21/18 10:00 06/22/18 14:02 Hctz - PO Not Given DAILY [facility] Hydromorphone HCl 2 mg 06/22/18 15:38 06/22/18 16:51 Dilaudid - PO 2 mg Q6H PRN Administration PAIN 7 - 10; IF TYLENOL NT WRK Lidocaine 1 patch 06/21/18 10:00 06/22/18 16:29 Lidoderm Patch - TP Not Given DAILY [facility] Lidocaine 2 patch 06/21/18 10:00 06/22/18 16:29 Lidoderm Patch - TP Not Given DAILY [facility] Miscellaneous 1 each 06/21/18 22:00 06/21/18 21:32 Lidoderm Patch Removal MC 1 each DAILY@2200 [facility] Administration Naproxen 500 mg 06/20/18 19:30 06/22/18 10:02 Naprosyn - PO 500 mg Q12H PRN Administration PAIN LEVEL 4 - 6 Polyethylene Glycol 17 gm 06/21/18 22:00 06/22/18 18:39 Miralax (For Daily Use) - PO Not Given BID [facility] Valsartan 160 mg 06/21/18 10:00 06/22/18 14:02 Diovan - PO Not Given DAILY [facility] ASSESSMENT/PLAN: The patient is a 63 male with a past medical history of hypertension and chronic right hip/knee pain that presents to the ED for persistent right hip pain. The patient reports falling onto his right knee several months ago and since then has been having severe right hip pain that he describes as sharp that comes on suddenly. The right hip pain is described as very sharp and often radiates to this right para-spinous area and radiates to his groin and down his right thigh. He reports parasthesia to his anterior robertson down to his ankle. Patient was scheduled to have an MRI outpatient, but could not tolerate the pain. He was sent to the ED by his neurologist for MRI and pain control. Problem list: Hypertension Right hip pain, severe pain Card: Hypertension history, but at times hypotensive. On olmesartan/ Hydrochlorothiazide. monitor bp. Neuro: Right hip pain. acute on chronic. For MRI of right hip joint and lumbar spine. Has tried to do this test here twice but unable to lay still on MRI table secondary to pain. We have medicated him before test, but pain still severe. Will attempt to give him dilaudid 2mg through the night and see if this helps. Will reattempt the MRi tomororw. Will consult pain specialist. Pain managed with: Neurontin 100mg tid Flexiril tid Dilaudid 2mg po Baclophen Naproxen bid lidoderm fen PO intake, regular diet monitor electrolytes prophy scds if LOS > 48 hours, will initiate heparin full code. Visit type - Emergency Visit Emergency Visit: Yes ED Registration Date: 06/20/18 Care time: The patient presented to the Emergency Department on the above date and was hospitalized for further evaluation of their emergent condition. - New Patient This patient is new to me today: No - Critical Care Critical Care patient: No - Discharge Referral Referred to [facility] Med P.C.: No
[2018-06-22] MEDS: LIDOCAINE PATCH REMOVAL MC SCH (21:47)
[2018-06-23] MEDS: HYDROmorphone HCL 2 MG TABLET PO PRN ×2 (01:03→18:52)
[2018-06-23] MEDS: CYCLOBENZAPRINE HCL 5 MG TABLET PO SCH ×3 (05:16→22:07)
[2018-06-23] MEDS: DOCUSATE SODIUM 100 MG CAPSULE (FP) PO SCH ×3 (05:16→22:05)
--- NOTE | 2018-06-23 07:19 | PN ---
Progress Note, Physician Chief Complaint: Back pain radiating down right leg History of Present Illness: 63 yo male with h/o lower back pain, h/o right hip bursitis. here with worsening back pain radiating down his right leg. started after a fall a few weeks ago.\; denies bowel or bladder incontinence ;no f/c no weakness does have decreased sensation medial R leg. No improvement or sedation on gabapentin. MRI 's pending. - Current Medication List Current Medications: Active Medications Acetaminophen (Tylenol -) 650 mg PO Q6H PRN PRN Reason: PAIN LEVEL 7 - 10 Last Admin: 06/22/18 09:59 Dose: 650 mg Cyclobenzaprine HCl (Cyclobenzaprine Hcl) 5 mg PO TID [facility] Last Admin: 06/23/18 05:16 Dose: 5 mg Docusate Sodium (Colace -) 100 mg PO TID [facility] Last Admin: 06/23/18 05:16 Dose: 100 mg Gabapentin (Neurontin -) 300 mg PO BID [facility] Last Admin: 06/22/18 21:46 Dose: 300 mg Hydrochlorothiazide (Hctz -) 12.5 mg PO DAILY [facility] Last Admin: 06/22/18 14:02 Dose: Not Given Hydromorphone HCl (Dilaudid -) 2 mg PO Q6H PRN PRN Reason: PAIN 7 - 10; IF TYLENOL NT WRK Last Admin: 06/23/18 01:03 Dose: 2 mg Lidocaine (Lidoderm Patch -) 1 patch TP DAILY [facility] Last Admin: 06/22/18 16:29 Dose: Not Given Lidocaine (Lidoderm Patch -) 2 patch TP DAILY [facility] Last Admin: 06/22/18 16:29 Dose: Not Given Miscellaneous (Lidoderm Patch Removal) 1 each MC DAILY@2200 [facility] Last Admin: 06/22/18 21:47 Dose: 1 each Naproxen (Naprosyn -) 500 mg PO Q12H PRN PRN Reason: PAIN LEVEL 4 - 6 Last Admin: 06/22/18 10:02 Dose: 500 mg Polyethylene Glycol (Miralax (For Daily Use) -) 17 gm PO BID [facility] Last Admin: 06/22/18 21:45 Dose: 17 grams Valsartan (Diovan -) 160 mg PO DAILY [facility] Last Admin: 06/22/18 14:02 Dose: Not Given - Objective Vital Signs: Vital Signs Temperature 98.3 F 06/23/18 06:27 Pulse Rate 60 06/23/18 06:27 Respiratory Rate 20 06/23/18 06:27 Blood Pressure 94/60 06/23/18 06:27 O2 Sat by Pulse Oximetry (%) 97 06/22/18 21:00 Neurological: Yes: Alert, Oriented, Cran Nerves II-XII Intact ...Motor Strength: WNL Labs: CBC, BMP 06/22/18 09:00 06/22/18 09:00 Problem List - Problems (1) Back pain Code(s): M54.9 - DORSALGIA, UNSPECIFIED (2) Nerve pain Code(s): M79.2 - NEURALGIA AND NEURITIS, UNSPECIFIED Assessment/Plan Increase gabapentin. Add duloxetine. F/U MRI.
[2018-06-23] MEDS: GABAPENTIN 400 MG CAPSULE (FP) PO SCH ×3 (09:27→22:05)
[2018-06-23] MEDS: DULoxetine HCL 30 MG CAPSULE.DR (FP) PO SCH (09:27)
[2018-06-23] MEDS: LIDOCAINE 5% TOPICAL PATCH TP SCH ×2 (09:27→13:48)
[2018-06-23] MEDS: VALSARTAN 160 MG TABLET (UD) PO SCH (09:28)
[2018-06-23] MEDS: POLYETHYLENE GLYCOL 3350 119 GM BTL PO SCH ×2 (09:28→22:05)
[2018-06-23] MEDS: HYDROCHLOROTHIAZIDE 12.5 MG CAPSULE (FP) PO SCH (09:28)
[2018-06-23] MEDS ORDERED: PT OWN MED DRAWER 7, Y5N ONE ×2 (13:44→21:29)
--- NOTE | 2018-06-23 18:41 | PN ---
Physical Exam: SUBJECTIVE: Patient seen and examined at the bedside. feels well, in no acute distress. states the dilaudid is helping and he is willing to try the MRI today OBJECTIVE: Given dilaudid 2mg PO overnight and seems to be improving his pain. 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 If unable to tolerate MRI today, will need to be referred to a stand up MRI. discussed this POC with his neurlogist yesterday. Vital Signs Period Temp Pulse Resp BP Sys/Hampton Pulse Ox Last 24 Hr 97.9 F-98.4 F 60-91 18-20 94-110/54-74 97 GENERAL: Awake, alert, and fully oriented, in no acute distress. HEAD: Normal with no signs of trauma. EYES: Pupils equal, round and reactive to light, extraocular movements intact, sclera anicteric, conjunctiva clear. No lid lag. EARS, NOSE, THROAT: Ears normal, nares patent, oropharynx clear without exudates. Moist mucous membranes. NECK: Normal range of motion, supple without lymphadenopathy, JVD, or masses. LUNGS: Breath sounds equal, clear to auscultation bilaterally. No wheezes, and no crackles. No accessory muscle use. HEART: Regular rate and rhythm ABDOMEN: Soft, nontender, not distended, normoactive bowel sounds, no guarding, no rebound, no masses. No hepatomegaly or splenomegaly. SKIN: Warm, dry, normal turgor, no rashes or lesions noted, normal capillary refill. Active Medications Generic Name Dose Route Start Last Admin Trade Name Francoisq PRN Reason Stop Dose Admin Acetaminophen 650 mg 06/20/18 17:51 06/22/18 09:59 Tylenol - PO 650 mg Q6H PRN Administration PAIN LEVEL 7 - 10 Cyclobenzaprine HCl 5 mg 06/20/18 22:00 06/23/18 13:47 Cyclobenzaprine Hcl PO 5 mg TID ALCIRA Administration Docusate Sodium 100 mg 06/21/18 22:00 06/23/18 13:47 Colace - PO 100 mg TID ALCIRA Administration Duloxetine HCl 30 mg 06/23/18 10:00 06/23/18 09:27 Cymbalta - PO 30 mg DAILY ALCIRA Administration Gabapentin 400 mg 06/23/18 07:30 06/23/18 13:47 Neurontin - PO 400 mg TID ALCIRA Administration Hydrochlorothiazide 12.5 mg 06/21/18 10:00 06/23/18 09:28 Hctz - PO Not Given DAILY ALCIRA Hydromorphone HCl 2 mg 06/22/18 15:38 06/23/18 01:03 Dilaudid - PO 2 mg Q6H PRN Administration PAIN 7 - 10; IF TYLENOL NT WRK Lidocaine 1 patch 06/21/18 10:00 06/23/18 13:48 Lidoderm Patch - TP Not Given DAILY ALCIRA Lidocaine 2 patch 06/21/18 10:00 06/23/18 09:27 Lidoderm Patch - TP 2 patch DAILY ALCIRA Administration Miscellaneous 1 each 06/21/18 22:00 06/22/18 21:47 Lidoderm Patch Removal MC 1 each DAILY@2200 ALCIRA Administration Naproxen 500 mg 06/20/18 19:30 06/22/18 10:02 Naprosyn - PO 500 mg Q12H PRN Administration PAIN LEVEL 4 - 6 Polyethylene Glycol 17 gm 06/21/18 22:00 06/23/18 09:28 Miralax (For Daily Use) - PO Not Given BID ALCIRA Valsartan 160 mg 06/21/18 10:00 06/23/18 09:28 Diovan - PO Not Given DAILY ALCIRA ASSESSMENT/PLAN: The patient is a 63 male with a past medical history of hypertension and chronic right hip/knee pain that presents to the ED for persistent right hip pain. The patient reports falling onto his right knee several months ago and since then has been having severe right hip pain that he describes as sharp that comes on suddenly. The right hip pain is described as very sharp and often radiates to this right para-spinous area and radiates to his groin and down his right thigh. He reports parasthesia to his anterior robertson down to his ankle. Patient was scheduled to have an MRI outpatient, but could not tolerate the pain. He was sent to the ED by his neurologist for MRI and pain control. Problem list: Hypertension Right hip pain, severe pain Card: Hypertension history, but at times hypotensive. On olmesartan/ Hydrochlorothiazide. monitor bp. Neuro: Right hip pain. acute on chronic. For MRI of right hip joint and lumbar spine. Has tried to do this test here twice but unable to lay still on MRI table secondary to pain. We have medicated him before test, but pain still severe. Given dilaudid 2mg prn overnight which seems to be helping. Patient reports relief of pain. Will reattempt the MRi tonight. If unable to tolerate MRI tonight, will need to be referred to a stand up MRI outpatient.. Pain managed with: Neurontin 400mg tid Flexiril 5mg tid Dilaudid 2mg po q6 prn Naproxen bid lidoderm patch fen PO intake, regular diet monitor electrolytes prophy scds full code. Visit type - Emergency Visit Emergency Visit: Yes ED Registration Date: 06/23/18 Care time: The patient presented to the Emergency Department on the above date and was hospitalized for further evaluation of their emergent condition. - New Patient This patient is new to me today: No - Critical Care Critical Care patient: No - Discharge Referral Referred to [facility] Med [facility] No
[2018-06-23] MEDS ORDERED: HYDROmorphone HCL 2 MG TABLET PO ONE (19:32)
[2018-06-23] MEDS: LIDOCAINE PATCH REMOVAL MC SCH (22:07)
[2018-06-24] MEDS: DOCUSATE SODIUM 100 MG CAPSULE (FP) PO SCH ×3 (05:37→23:38)
[2018-06-24] MEDS: GABAPENTIN 400 MG CAPSULE (FP) PO SCH (05:37)
[2018-06-24] MEDS: CYCLOBENZAPRINE HCL 10 MG TABLET (FP) PO SCH ×3 (05:39→23:38)
[2018-06-24] MEDS: NAPROXEN 500 MG TABLET (FP) PO PRN (06:30)
[2018-06-24] MEDS: DULoxetine HCL 30 MG CAPSULE.DR (FP) PO SCH (09:39)
[2018-06-24] MEDS: LIDOCAINE 5% TOPICAL PATCH TP SCH ×2 (09:39→15:04)
[2018-06-24] MEDS: HYDROCHLOROTHIAZIDE 12.5 MG CAPSULE (FP) PO SCH (09:39)
[2018-06-24] MEDS: VALSARTAN 160 MG TABLET (UD) PO SCH (09:39)
--- NOTE | 2018-06-24 11:10 | PN ---
Progress Note, Physician Chief Complaint: Back pain radiating down right leg History of Present Illness: 63 yo male with h/o lower back pain, h/o right hip bursitis. here with worsening back pain radiating down his right leg. started after a fall a few weeks ago.\\; denies bowel or bladder incontinence ;no f/c no weakness does have decreased sensation medial R leg. Marked improvement in pain relief today on higher dose gabapentin. No sedation. Would like to push dose higher. Also added low dose duloxetine, though doubt that it added anything yet. He is still awaiting MRI LS spine. - Current Medication List Current Medications: Active Medications Acetaminophen (Tylenol -) 650 mg PO Q6H PRN PRN Reason: PAIN LEVEL 7 - 10 Last Admin: 06/22/18 09:59 Dose: 650 mg Cyclobenzaprine HCl (Flexeril -) 5 mg PO TID [facility] Last Admin: 06/24/18 05:39 Dose: 5 mg Docusate Sodium (Colace -) 100 mg PO TID [facility] Last Admin: 06/24/18 05:37 Dose: 100 mg Duloxetine HCl (Cymbalta -) 30 mg PO DAILY [facility] Last Admin: 06/24/18 09:39 Dose: 30 mg Gabapentin (Neurontin -) 400 mg PO TID [facility] Last Admin: 06/24/18 05:37 Dose: 400 mg Hydrochlorothiazide (Hctz -) 12.5 mg PO DAILY [facility] Last Admin: 06/24/18 09:39 Dose: 12.5 mg Hydromorphone HCl (Dilaudid -) 2 mg PO Q6H PRN PRN Reason: PAIN 7 - 10; IF TYLENOL NT WRK Last Admin: 06/23/18 18:52 Dose: 2 mg Lidocaine (Lidoderm Patch -) 1 patch TP DAILY [facility] Last Admin: 06/23/18 13:48 Dose: Not Given Lidocaine (Lidoderm Patch -) 2 patch TP DAILY [facility] Last Admin: 06/24/18 09:39 Dose: 2 patch Miscellaneous (Lidoderm Patch Removal) 1 each MC DAILY@2200 [facility] Last Admin: 06/23/18 22:07 Dose: 1 each Naproxen (Naprosyn -) 500 mg PO Q12H PRN PRN Reason: PAIN LEVEL 4 - 6 Last Admin: 06/24/18 06:30 Dose: 500 mg Polyethylene Glycol (Miralax (For Daily Use) -) 17 gm PO BID [facility] Last Admin: 06/23/18 22:05 Dose: 17 grams Valsartan (Diovan -) 160 mg PO DAILY [facility] Last Admin: 06/24/18 09:39 Dose: 160 mg - Objective Vital Signs: Vital Signs Temperature 97.4 F L 06/24/18 06:59 Pulse Rate 58 L 06/24/18 06:59 Respiratory Rate 20 06/24/18 06:59 Blood Pressure 135/79 06/24/18 06:59 O2 Sat by Pulse Oximetry (%) 97 06/23/18 21:00 Neurological: Yes: Alert, Oriented, Cran Nerves II-XII Intact ...Motor Strength: WNL Labs: CBC, BMP 06/22/18 09:00 06/22/18 09:00 Problem List - Problems (1) Back pain Code(s): M54.9 - DORSALGIA, UNSPECIFIED Qualifiers: Back pain location: low back pain (2) Nerve pain Code(s): M79.2 - NEURALGIA AND NEURITIS, UNSPECIFIED (3) Lumbar radiculopathy Code(s): M54.16 - RADICULOPATHY, LUMBAR REGION Assessment/Plan Increase gabapentin. Continue duloxetine and once stable on gabapentin dose, push to 60 mg daily. Ultimately may chose to go as high as 120 if needed and tolerated. Patient should be warned against overusing alcohol on these meds, but particularly on duloxetine as the combination of duloxetine and " substantial alcohol use" confers the risk of hepatotoxicity. F/U MRI.
[2018-06-24] MEDS: HYDROmorphone HCL 2 MG TABLET PO PRN ×2 (11:56→18:34)
--- NOTE | 2018-06-24 13:35 | PN ---
Physical Exam: SUBJECTIVE: Patient seen and examined at bedside. Pain is better managed with dilaudid and was able to tolerate MRI of RLE last night. Could not lay flat long enough to do spine, scheduled for later today. OBJECTIVE: Vital Signs Period Temp Pulse Resp BP Sys/Hampton Pulse Ox Last 24 Hr 97.4 F-98.6 F 58-90 20-20 99-135/62-89 97 GENERAL/NEURO: The patient is awake, alert, and fully oriented, in no acute distress. 3/5 sensory RLE, 5/5 dorsi/plantar flexion bilaterally; right calf muscle atrophy LUNGS: Breath sounds equal, clear to auscultation bilaterally, no wheezes, no crackles, no accessory muscle use. HEART: Regular rate and rhythm, S1, S2 ABDOMEN: Soft, nontender, nondistended EXTREMITIES: 2+ pulses, warm, well-perfused, no edema. Active Medications Generic Name Dose Route Start Last Admin Trade Name Freq PRN Reason Stop Dose Admin Acetaminophen 650 mg 06/20/18 17:51 06/22/18 09:59 Tylenol - PO 650 mg Q6H PRN Administration PAIN LEVEL 7 - 10 Cyclobenzaprine HCl 5 mg 06/24/18 06:00 06/24/18 05:39 Flexeril - PO 5 mg TID ALCIRA Administration Docusate Sodium 100 mg 06/21/18 22:00 06/24/18 05:37 Colace - PO 100 mg TID ALCIRA Administration Duloxetine HCl 30 mg 06/23/18 10:00 06/24/18 09:39 Cymbalta - PO 30 mg DAILY ALCIRA Administration Gabapentin 600 mg 06/24/18 14:00 Neurontin - PO TID ALCIRA Hydrochlorothiazide 12.5 mg 06/21/18 10:00 06/24/18 09:39 Hctz - PO 12.5 mg DAILY ALCIRA Administration Hydromorphone HCl 2 mg 06/22/18 15:38 06/24/18 11:56 Dilaudid - PO 2 mg Q6H PRN Administration PAIN 7 - 10; IF TYLENOL NT WRK Lidocaine 1 patch 06/21/18 10:00 06/23/18 13:48 Lidoderm Patch - TP Not Given DAILY ALCIRA Lidocaine 2 patch 06/21/18 10:00 06/24/18 09:39 Lidoderm Patch - TP 2 patch DAILY ALCIRA Administration Miscellaneous 1 each 06/21/18 22:00 06/23/18 22:07 Lidoderm Patch Removal MC 1 each DAILY@2200 ALCIRA Administration Polyethylene Glycol 17 gm 06/21/18 22:00 06/23/18 22:05 Miralax (For Daily Use) - PO 17 grams BID ALCIRA Administration Valsartan 160 mg 06/21/18 10:00 06/24/18 09:39 Diovan - PO 160 mg DAILY ALCIRA Administration ASSESSMENT/PLAN 63 year-old male with a PMH significant for HTN and chronic right hip pain and RLE radiculopathy. Admitted for RLE radiculopathy with focal neuro deficits. RLE radiculopathy --right calf-muscle atrophy, decreased sensory right robertson --MRI RLE: no evidence of fracture --MRI LS: done, pending dictation --continue gabapentin, cymbalta, flexeril, dilaudid --stop NSAIDS --neurosurgery consult requested Hypertension --BP stable --continue valsartan, HCTZ FEN Fluids: PO intake adequate Electrolytes: replete as indicated Nutrition: regular diet DVT prophylaxis: SCDs, oob, ambulation with walker; hold chemical prophylaxis pending possible surgery Physical therapy Dispo: continues to require inpatient care. Full code. Visit type - Emergency Visit Emergency Visit: Yes ED Registration Date: 06/23/18 Care time: The patient presented to the Emergency Department on the above date and was hospitalized for further evaluation of their emergent condition. - New Patient This patient is new to me today: Yes Date on this admission: 06/24/18 - Critical Care Critical Care patient: No
[2018-06-24] MEDS: GABAPENTIN 300 MG CAPSULE (FP) PO SCH ×2 (15:03→23:38)
[2018-06-24] MEDS: POLYETHYLENE GLYCOL 3350 119 GM BTL PO SCH ×2 (15:07→23:39)
--- NOTE | 2018-06-24 21:41 | CONSULT ---
Consult - text type - Consultation Consultation Note: NEUROSURGERY CONSULTATION Patient is a 63 year old male with progression of chronic back pain who has severe Right leg radicular symptoms. He was unable to undergo MRI due to incapacitating pain. He was medicated and was just able to complete Lumbar MRI this evening. My initial impression is that there is multilevel degenerative changes which is worst at L34, L45 and L5S1. At L34 there is a large extruded fragment which has migrated caudally medial to the Right L4 pedicle. L45 also has a disc bulge with another free fragment eccentric to the Right. There is a foraminal disc bulge at L5S1 on the Left. There are Modic changes at all three levels. I will see the patient again tomorrow to discuss his symptoms further in the context of this exam and will present potential treatment options.
[2018-06-24] MEDS: LIDOCAINE PATCH REMOVAL MC SCH (23:38)
[2018-06-25] MEDS: CYCLOBENZAPRINE HCL 10 MG TABLET (FP) PO SCH ×3 (06:27→22:34)
[2018-06-25] MEDS: DOCUSATE SODIUM 100 MG CAPSULE (FP) PO SCH ×3 (06:27→22:34)
[2018-06-25] MEDS: GABAPENTIN 300 MG CAPSULE (FP) PO SCH ×3 (06:27→22:34)
[2018-06-25] MEDS: HYDROCHLOROTHIAZIDE 12.5 MG CAPSULE (FP) PO SCH ×2 (10:55→17:44)
[2018-06-25] MEDS: DULoxetine HCL 30 MG CAPSULE.DR (FP) PO SCH (10:55)
[2018-06-25] MEDS: VALSARTAN 160 MG TABLET (UD) PO SCH ×2 (10:55→17:44)
[2018-06-25] MEDS: POLYETHYLENE GLYCOL 3350 119 GM BTL PO SCH ×2 (10:56→22:34)
[2018-06-25] MEDS: LIDOCAINE 5% TOPICAL PATCH TP SCH ×2 (10:56)
--- NOTE | 2018-06-25 16:49 | PN ---
Progress Note (short form) - Note Progress Note: Dylan Akins is a 63 year old male with progression of chronic back pain who has severe Right leg radicular symptoms. The patient describes progressive increase in his pain over the past 2-3 months. He was admitted to [facility] through the ER due to extreme pain. He was unable to undergo MRI earlier this week due to incapacitating pain. He was medicated and was just able to complete Lumbar MRI on Saturday evening. MRI Lumbar spine demonstrates multilevel degenerative changes which is worst at L34, L45 and L5S1. At L34 there is a large extruded fragment which has migrated caudally medial to the Right L4 pedicle. L45 also has a disc bulge with another free fragment eccentric to the Right. There is a foraminal disc bulge at L5S1 on the Left. There are Modic changes at all three levels. The patient has had injections and Physical Therapy without relief. Given the severity of symptoms, chronicity, and lack of response to conservative therapy, surgical intervention is appropriate. I described a variety of treatment options including focal decompression and/or fusion at 1 or more levels. Given his severe pain and the extent of the pathology, L3-S1 decompression and fusion would be the most reasonable treatment plan. I described the risks, benefits and alternatives to L3-S1 laminectomies and interbody cages with posterior lateral fusionin yuan. I explained that the risks included, but were not limited to: , coma, paralysis, bleeding, infection, CSF leak possibly requiring spinal drainage or additional surgery, iatrogenic instabilityand the need for additional surgery.All questions were answered and informed consent was obtained. The patient was offered the opportunity to seek another opinion or another surgeon. I had a discussion with the patient and spouse about the anatomy, pathology, proposed surgery and potential complications. They ask that I proceed on an expedited basis.
--- NOTE | 2018-06-25 19:26 | PN ---
Physical Exam: SUBJECTIVE: Patient seen and examined. Tolerated MRI LSS today, results pending. OBJECTIVE: Vital Signs Period Temp Pulse Resp BP Sys/Hampton Pulse Ox Last 24 Hr 97.5 F-98.7 F 64-93 18-20 104-110/63-70 98-98 GENERAL/NEURO: The patient is awake, alert, and fully oriented, in no acute distress. 3/5 sensory RLE, 5/5 dorsi/plantar flexion bilaterally; right calf muscle atrophy LUNGS: Breath sounds equal, clear to auscultation bilaterally, no wheezes, no crackles, no accessory muscle use. HEART: Regular rate and rhythm, S1, S2 ABDOMEN: Soft, nontender, nondistended EXTREMITIES: 2+ pulses, warm, well-perfused, no edema. Active Medications Generic Name Dose Route Start Last Admin Trade Name Freq PRN Reason Stop Dose Admin Acetaminophen 650 mg 06/20/18 17:51 06/22/18 09:59 Tylenol - PO 650 mg Q6H PRN Administration PAIN LEVEL 7 - 10 Cyclobenzaprine HCl 5 mg 06/24/18 06:00 06/25/18 14:27 Flexeril - PO 5 mg TID ALCIRA Administration Docusate Sodium 100 mg 06/21/18 22:00 06/25/18 14:27 Colace - PO 100 mg TID ALCIRA Administration Duloxetine HCl 30 mg 06/23/18 10:00 06/25/18 10:55 Cymbalta - PO 30 mg DAILY ALCIRA Administration Gabapentin 600 mg 06/24/18 14:00 06/25/18 14:26 Neurontin - PO 600 mg TID ALCIRA Administration Hydrochlorothiazide 12.5 mg 06/21/18 10:00 06/25/18 17:44 Hctz - PO Not Given DAILY ALCIRA Hydromorphone HCl 2 mg 06/22/18 15:38 06/24/18 18:34 Dilaudid - PO 2 mg Q6H PRN Administration PAIN 7 - 10; IF TYLENOL NT WRK Lidocaine 1 patch 06/21/18 10:00 06/25/18 10:56 Lidoderm Patch - TP Not Given DAILY ALCIRA Lidocaine 2 patch 06/21/18 10:00 06/25/18 10:56 Lidoderm Patch - TP 2 patch DAILY ALCIRA Administration Miscellaneous 1 each 06/21/18 22:00 06/24/18 23:38 Lidoderm Patch Removal MC 1 each DAILY@2200 ALCIRA Administration Polyethylene Glycol 17 gm 06/21/18 22:00 06/25/18 10:56 Miralax (For Daily Use) - PO 17 grams BID ALCIRA Administration Valsartan 160 mg 06/21/18 10:00 06/25/18 17:44 Diovan - PO Not Given DAILY ALCIRA ASSESSMENT/PLAN 63 year-old male with a PMH significant for HTN and chronic right hip pain and RLE radiculopathy. Admitted for RLE radiculopathy with focal neuro deficits. RLE radiculopathy --right calf-muscle atrophy, decreased sensory right robertson, severe radicular pain --06/24 MRI LS:multilevel degenerative changes, worst at L34, L45 and L5-S1; at L3-4 large extruded fragment which has migrated caudally medial to the Right L4 pedicle; L4-5 disc bulge with another free fragment eccentric to the Right; foraminal disc bulge at L5-S1 on the Left; modic changes at all three levels --surgery Dr. Winlsow has presented patient with treatment options, patient and considering --continue gabapentin, cymbalta, flexeril, dilaudid Hypertension --BP stable --continue valsartan, HCTZ FEN Fluids: PO intake adequate Electrolytes: replete as indicated Nutrition: regular diet DVT prophylaxis: SCDs, oob, ambulation with walker; hold chemical prophylaxis pending possible surgery Physical therapy Dispo: continues to require inpatient care. Full code. Visit type - Emergency Visit Emergency Visit: Yes ED Registration Date: 06/23/18 Care time: The patient presented to the Emergency Department on the above date and was hospitalized for further evaluation of their emergent condition. - New Patient This patient is new to me today: No - Critical Care Critical Care patient: No
[2018-06-25] MEDS: LIDOCAINE PATCH REMOVAL MC SCH (22:35)
[2018-06-26] MEDS: DOCUSATE SODIUM 100 MG CAPSULE (FP) PO SCH ×3 (05:54→21:10)
[2018-06-26] MEDS: GABAPENTIN 300 MG CAPSULE (FP) PO SCH ×3 (05:54→21:07)
[2018-06-26] MEDS: CYCLOBENZAPRINE HCL 10 MG TABLET (FP) PO SCH ×3 (05:54→21:08)
[2018-06-26] MEDS: VALSARTAN 160 MG TABLET (UD) PO SCH (10:06)
[2018-06-26] MEDS: DULoxetine HCL 30 MG CAPSULE.DR (FP) PO SCH (10:06)
[2018-06-26] MEDS: HYDROCHLOROTHIAZIDE 12.5 MG CAPSULE (FP) PO SCH (10:06)
[2018-06-26] MEDS: LIDOCAINE 5% TOPICAL PATCH TP SCH ×2 (10:07)
[2018-06-26] MEDS: POLYETHYLENE GLYCOL 3350 119 GM BTL PO SCH ×2 (10:10→21:06)
--- NOTE | 2018-06-26 12:02 | PN ---
Progress Note (short form) - Note Progress Note: Patient sleeping comfortably. When awakened, he reports adequate pain control. Patient indicates that he wishes to proceed with L3-S1 decompression and fusion as described. Will determine OR feasibility for tom versus Saturday. Will keep patient NPO p MN and have him have Hibiclens shower tonight in anticipation of possible surgery in AM.
--- NOTE | 2018-06-26 13:52 | SPA.PREOP ---
- PRE-OP NOTE Dx: Multilevel degenerative changes L3/L4, L4/L5, L5/S1, disc herniation Planned Procedure: L3-S1 PLIF Surgeon: Dr Gallito Astudillo Consent: Obtained after surgeon explained all risks, benefits and alternatives. Opportunity for questions. Patient had none. Understood and signed without reservation. Last Vital Signs Temp Pulse Resp BP Pulse Ox 98.2 F 88 17 112/71 98 06/26/18 10:06/26/18 10:17 06/26/18 10:06/26/18 10:06/26/18 09:00 Lab Results WBC 8.5 K/mm3 (4.0-10.0) 06/22/18 09:00 RBC 3.51 M/mm3 (4.00-5.60) L 06/22/18 09:00 Hgb 11.4 GM/dL (11.7-16.9) L 06/22/18 09:00 Hct 33.6 % (35.4-49) L 06/22/18 09:00 MCV 95.7 fl (80-96) 06/22/18 09:00 MCHC 34.0 g/dl (32.0-35.9) 06/22/18 09:00 RDW 14.0 % (11.9-15.9) 06/22/18 09:00 Plt Count 262 K/MM3 (134-434) 06/22/18 09:00 Sodium 135 mmol/L (136-145) L 06/22/18 09:00 Potassium 4.4 mmol/L (3.5-5.1) 06/22/18 09:00 Chloride 102 mmol/L (98-107) 06/22/18 09:00 Carbon Dioxide 23 mmol/L (21-32) 06/22/18 09:00 Anion Gap 9 MMOL/L (8-16) 06/22/18 09:00 BUN 27 mg/dL (7-18) H 06/22/18 09:00 Creatinine 1.2 mg/dL (0.55-1.3) 06/22/18 09:00 Random Glucose 132 mg/dL (74-106) H 06/22/18 09:00 Calcium 9.1 mg/dL (8.5-10.1) 06/22/18 09:00 Plan: Medical clearance NPO after midnight Labs ordered for tonight (cbc, chem, coags, T&S) EKG, cxr Consent per attending Livia gonzales tonight (ordered) - ASSESSMENT/PLAN 1. Make NPO after midnight except po meds 2. GI/DVT PPX 3. Medical optimization / clearance
--- NOTE | 2018-06-26 15:40 | EKG ---
Test Reason : Blood Pressure : / mmHG Vent. Rate : 073 BPM Atrial Rate : 073 BPM P-R Int : 158 ms QRS Dur : 084 ms QT Int : 384 ms P-R-T Axes : 046 008 054 degrees QTc Int : 423 ms NORMAL SINUS RHYTHM NORMAL ECG WHEN COMPARED WITH ECG OF 15-MAY-2018 19:43, NO SIGNIFICANT CHANGE WAS FOUND Confirmed by ARACELI REYES MD ([id number]) on 06/26/2018 3:40:04 PM Referred By: TOBIAS ANGELES Confirmed By:ARACELI REYES MD
[2018-06-26] MEDS: HYDROmorphone HCL 2 MG TABLET PO PRN (16:33)
--- NOTE | 2018-06-26 17:43 | PN ---
Physical Exam: SUBJECTIVE: Patient seen and examined at bedside. present. Has decided to go forward with surgery tomorrow morning. OBJECTIVE: Vital Signs Period Temp Pulse Resp BP Sys/Hampton Pulse Ox Last 24 Hr 97.7 F-98.7 F 67-88 17-20 109-119/67-74 98-99 GENERAL/NEURO: The patient is awake, alert, and fully oriented, in no acute distress. 3/5 sensory RLE, 5/5 dorsi/plantar flexion bilaterally; right calf muscle atrophy LUNGS: Breath sounds equal, clear to auscultation bilaterally, no wheezes, no crackles, no accessory muscle use. HEART: Regular rate and rhythm, S1, S2 ABDOMEN: Soft, nontender, nondistended EXTREMITIES: 2+ pulses, warm, well-perfused, no edema. Active Medications Generic Name Dose Route Start Last Admin Trade Name Freq PRN Reason Stop Dose Admin Acetaminophen 650 mg 06/20/18 17:51 06/22/18 09:59 Tylenol - PO 650 mg Q6H PRN Administration PAIN LEVEL 7 - 10 Chlorhexidine Gluconate 1 applic 06/26/18 22:00 Hibiclens For Decolonization - TP HS ALCIRA Cyclobenzaprine HCl 5 mg 06/24/18 06:00 06/26/18 15:02 Flexeril - PO 5 mg TID ALCIRA Administration Docusate Sodium 100 mg 06/21/18 22:00 06/26/18 15:12 Colace - PO 100 mg TID ALCIRA Administration Duloxetine HCl 30 mg 06/23/18 10:00 06/26/18 10:06 Cymbalta - PO 30 mg DAILY ALCIRA Administration Gabapentin 600 mg 06/24/18 14:00 06/26/18 15:02 Neurontin - PO 600 mg TID ALCIRA Administration Hydrochlorothiazide 12.5 mg 06/21/18 10:00 06/26/18 10:06 Hctz - PO 12.5 mg DAILY ALCIRA Administration Hydromorphone HCl 2 mg 06/22/18 15:38 06/26/18 16:33 Dilaudid - PO 2 mg Q6H PRN Administration PAIN 7 - 10; IF TYLENOL NT WRK Lidocaine 1 patch 06/21/18 10:00 06/26/18 10:07 Lidoderm Patch - TP 1 patch DAILY ALCIRA Administration Lidocaine 2 patch 06/21/18 10:00 06/26/18 10:07 Lidoderm Patch - TP 2 patch DAILY ALCIRA Administration Miscellaneous 1 each 06/21/18 22:00 06/25/18 22:35 Lidoderm Patch Removal MC 1 each DAILY@2200 ALCIRA Administration Polyethylene Glycol 17 gm 06/21/18 22:00 06/26/18 10:10 Miralax (For Daily Use) - PO 17 grams BID ALCIRA Administration Valsartan 160 mg 06/21/18 10:00 06/26/18 10:06 Diovan - PO 160 mg DAILY ALCIRA Administration ASSESSMENT/PLAN 63 year-old male with a PMH significant for HTN and chronic right hip pain and RLE radiculopathy. Admitted for RLE radiculopathy with focal neuro deficits. RLE radiculopathy --right calf-muscle atrophy, decreased sensory right robertson, severe radicular pain --06/24 MRI LS:multilevel degenerative changes, worst at L34, L45 and L5-S1; at L3-4 large extruded fragment which has migrated caudally medial to the Right L4 pedicle; L4-5 disc bulge with another free fragment eccentric to the Right; foraminal disc bulge at L5-S1 on the Left; modic changes at all three levels --plan is for surgery tomorrow morning --continue gabapentin, cymbalta, flexeril, dilaudid Hypertension --BP stable --continue valsartan, HCTZ FEN Fluids: PO intake adequate Electrolytes: replete as indicated Nutrition: NPO after midnight DVT prophylaxis: SCDs, oob, ambulation; hold chemical prophylaxis pending surgery Physical therapy Dispo: continues to require inpatient care. Full code. Visit type - Emergency Visit Emergency Visit: Yes ED Registration Date: 06/23/18 Care time: The patient presented to the Emergency Department on the above date and was hospitalized for further evaluation of their emergent condition. - New Patient This patient is new to me today: No - Critical Care Critical Care patient: No
[2018-06-26 18:01] LABS: BASO % 1.2 % (0-2.0); HEMATOCRIT 30.3 % (35.4-49); HEMOGLOBIN 10.4 GM/dL (11.7-16.9); LYMPH % 20.1 % (8-40); MCH 32.7 pg (25.7-33.7); MCHC 34.4 g/dl (32.0-35.9); MEAN CELL VOLUME 95.2 fl (80-96); MEAN PLT VOLUME 8.2 fl (7.5-11.1); MONO % 11.6 % (3.8-10.2); NEUT % 64.1 % (42.8-82.8); PLATELET COUNT 299 K/MM3 (134-434); RBC 3.19 M/mm3 (4.00-5.60); RDW 14.1 % (11.9-15.9); WHITE BLOOD COUNT 8.5 K/mm3 (4.0-10.0)
[2018-06-26 18:11] LABS: INR 0.96 (0.83-1.09); PROTHROMBIN TIME (PATIENT) 11.3 SEC (9.7-13.0)
[2018-06-26 18:14] LABS: ACTIVATED PTT 25.9 SECONDS (25.2-36.5)
[2018-06-26 18:33] LABS: ANION GAP 6 MMOL/L (8-16); BLOOD UREA NITROGEN 18 mg/dL (7-18); CALCIUM 8.6 mg/dL (8.5-10.1); CHLORIDE 107 mmol/L (98-107); CO2 26 mmol/L (21-32); CREATININE 0.9 mg/dL (0.55-1.3); GLUCOSE,RANDOM 109 mg/dL (74-106); POTASSIUM 4.3 mmol/L (3.5-5.1); SODIUM 138 mmol/L (136-145)
[2018-06-26] MEDS: LIDOCAINE PATCH REMOVAL MC SCH (21:10)
[2018-06-26] MEDS ORDERED: CHLORHEXIDINE GLUCONATE 4% CLEANSER FOR DECOLONIZATION TP SCH (22:00)
[2018-06-27] MEDS: GABAPENTIN 300 MG CAPSULE (FP) PO SCH ×2 (06:07→18:24)
[2018-06-27] MEDS: CYCLOBENZAPRINE HCL 10 MG TABLET (FP) PO SCH ×2 (06:07→18:23)
[2018-06-27] MEDS: DOCUSATE SODIUM 100 MG CAPSULE (FP) PO SCH ×3 (06:08→21:09)
[2018-06-27] MEDS ORDERED: LIDOCAINE 1%/EPI 1:100000 (20 ML MULTI DOSE VIAL) ONE (07:16)
[2018-06-27] MEDS ORDERED: THROMBIN (BOVINE) 20,000 UNIT VIAL TP ONE (07:16)
[2018-06-27] MEDS ORDERED: GENTAMICIN SO4 80 MG/2 ML VIAL ONE (07:16)
[2018-06-27] MEDS ORDERED: BUPIVACAINE HCL/PF 0.25% (2.5MG/ML) 10 ML VIAL ONE (07:16)
[2018-06-27] MEDS ORDERED: MIDAZOLAM HCL 2 MG/2 ML SINGLE DOSE VIAL ONE (07:39)
[2018-06-27] MEDS ORDERED: ROCURONIUM BROMIDE 50 MG/5 ML VIAL ONE ×3 (08:38→12:42)
[2018-06-27] MEDS ORDERED: BENZOIN TINCTURE SWABSTICK TP ONE (08:38)
[2018-06-27] MEDS ORDERED: PROPOFOL 20 ML ONE ×2 (08:38→11:27)
[2018-06-27] MEDS ORDERED: POVIDONE-IODINE OINTMENT 10% - 28.4 GM TUBE ONE (08:38)
[2018-06-27] MEDS ORDERED: BUPIVACAINE LIPOSOME/PF (EXPAREL) 266 MG/20 ML VIAL NR ONE (08:45)
[2018-06-27] MEDS ORDERED: ceFAZolin SODIUM 1 GM VIAL IVPB ONE ×2 (08:50→13:00)
[2018-06-27] MEDS ORDERED: VANCOMYCIN 1,000 MG VIAL (RESTRICTED TO ID ONLY) IVPB ONE (08:50)
[2018-06-27] MEDS ORDERED: LIDOCAINE 1%/EPI 1:100000 (20 ML MULTI DOSE VIAL) IJ ONE (09:06)
[2018-06-27] MEDS ORDERED: fentaNYL CITRATE 250 MCG/5 ML VIAL ONE (09:26)
[2018-06-27] MEDS ORDERED: THROMBIN (BOVINE) 5,000 UNIT VIAL TP ONE ×2 (09:26→10:56)
[2018-06-27] MEDS ORDERED: GELATIN, ABSORBABLE 12-7MM EACH SPONGE TP ONE (09:26)
[2018-06-27] MEDS ORDERED: KETOROLAC TROMETHAMINE 30 MG/1 ML VIAL ONE (09:26)
[2018-06-27] MEDS ORDERED: ONDANSETRON 4 MG/2 ML VIAL ONE (09:26)
[2018-06-27] MEDS ORDERED: ceFAZolin SODIUM 1 GM VIAL ONE ×3 (09:26→20:16)
[2018-06-27] MEDS ORDERED: VANCOMYCIN 1,000 MG VIAL (RESTRICTED TO ID ONLY) ONE ×2 (09:26→09:36)
--- NOTE | 2018-06-27 10:15 | PN ---
Physical Exam: SUBJECTIVE: Patient was in the OR throughout the day. Was not seen and examined by this provider today. OBJECTIVE: Vital Signs Period Temp Pulse Resp BP Sys/Hampton Pulse Ox Last 24 Hr 98.2 F-99.1 F 72-88 17-20 104-119/67-71 98 Laboratory Results - last 24 hr 06/26/18 06/26/18 06/26/18 17:32 17:32 17:32 WBC 8.5 RBC 3.19 L Hgb 10.4 L Hct 30.3 L MCV 95.2 MCH 32.7 MCHC 34.4 RDW 14.1 Plt Count 299 MPV 8.2 Absolute Neuts (auto) 5.4 Neutrophils % 64.1 Lymphocytes % 20.1 Monocytes % 11.6 H Eosinophils % 3.0 Basophils % 1.2 Nucleated RBC % 0 PT with INR 11.30 INR 0.96 PTT (Actin FS) 25.9 Sodium 138 Potassium 4.3 Chloride 107 Carbon Dioxide 26 Anion Gap 6 L BUN 18 Creatinine 0.9 Creat Clearance w eGFR > 60 Random Glucose 109 H Calcium 8.6 Blood Type Antibody Screen 06/26/18 06/26/18 17:32 20:00 WBC RBC Hgb Hct MCV MCH MCHC RDW Plt Count MPV Absolute Neuts (auto) Neutrophils % Lymphocytes % Monocytes % Eosinophils % Basophils % Nucleated RBC % PT with INR INR PTT (Actin FS) Sodium Potassium Chloride Carbon Dioxide Anion Gap BUN Creatinine Creat Clearance w eGFR Random Glucose Calcium Blood Type O POSITIVE O POSITIVE Antibody Screen Negative Active Medications Generic Name Dose Route Start Last Admin Trade Name Freq PRN Reason Stop Dose Admin Acetaminophen 650 mg 06/20/18 17:51 06/22/18 09:59 Tylenol - PO 650 mg Q6H PRN Administration PAIN LEVEL 7 - 10 Cyclobenzaprine HCl 5 mg 06/24/18 06:00 06/27/18 06:07 Flexeril - PO 5 mg TID ALCIRA Administration Docusate Sodium 100 mg 06/21/18 22:00 06/27/18 06:08 Colace - PO Not Given TID ALCIRA Duloxetine HCl 30 mg 06/23/18 10:00 06/26/18 10:06 Cymbalta - PO 30 mg DAILY ALCIRA Administration Gabapentin 600 mg 06/24/18 14:00 06/27/18 06:07 Neurontin - PO 600 mg TID ALCIRA Administration Hydrochlorothiazide 12.5 mg 06/21/18 10:00 06/26/18 10:06 Hctz - PO 12.5 mg DAILY ALCIRA Administration Lidocaine 1 patch 06/21/18 10:00 06/26/18 10:07 Lidoderm Patch - TP 1 patch DAILY ALCIRA Administration Lidocaine 2 patch 06/21/18 10:00 06/26/18 10:07 Lidoderm Patch - TP 2 patch DAILY ALCIRA Administration Miscellaneous 1 each 06/21/18 22:00 06/26/18 21:10 Lidoderm Patch Removal MC 1 each DAILY@2200 ALCIRA Administration Polyethylene Glycol 17 gm 06/21/18 22:00 06/26/18 21:06 Miralax (For Daily Use) - PO 17 grams BID ALCIRA Administration Valsartan 160 mg 06/21/18 10:00 06/26/18 10:06 Diovan - PO 160 mg DAILY ALCIRA Administration ASSESSMENT/PLAN 63 year-old male with a PMH significant for HTN and chronic right hip pain and RLE radiculopathy. Admitted for RLE radiculopathy with focal neuro deficits. RLE radiculopathy --right calf-muscle atrophy, decreased sensory right robertson, severe radicular pain --06/24 MRI LS:multilevel degenerative changes, worst at L34, L45 and L5-S1; at L3-4 large extruded fragment which has migrated caudally medial to the Right L4 pedicle; L4-5 disc bulge with another free fragment eccentric to the Right; foraminal disc bulge at L5-S1 on the Left; modic changes at all three levels --surgery today Visit type - Emergency Visit Emergency Visit: Yes ED Registration Date: 06/23/18 Care time: The patient presented to the Emergency Department on the above date and was hospitalized for further evaluation of their emergent condition. - New Patient This patient is new to me today: No - Critical Care Critical Care patient: No
[2018-06-27] MEDS ORDERED: ePHEDrine SULFATE 50 MG/1 ML AMPULE ONE ×2 (10:55→12:55)
[2018-06-27] MEDS ORDERED: PHENYLEPHRINE HCL 10 MG/1 ML SINGLE DOSE VIAL ONE (11:47)
[2018-06-27] MEDS ORDERED: NEOSTIGMINE METHYLSULFATE 0.5 MG/ML - 10 ML MDV ONE (14:16)
--- NOTE | 2018-06-27 14:21 | OP ---
Operative Note - Note: Operative Date: 06/27/18 Pre-Operative Diagnosis: Spondylolisthesis, disc herniation with radiculopathy Operation: L3/L4, L4/L5, L5/S1 Laminectomy, Microdiscectomy with interbody cage arthrodesis, pedicle screw placement/fusion, repair of incidental durotomy with muscle patch Findings: as dictated Implants: as dictated Post-Operative Diagnosis: Same as Pre-op Surgeon: Gallito Fay Tamale Maker: Danny Mast Anesthesiologist/DIRECTOR OF CONVENTION SERVICES: Greg Mohan Anesthesia: General, Epidural (.7ml Duramorph/Fentanyl combo injected into thecal sac at completion of case (approx 2pm)), Local (40cc Lidocaine with 1% epi injected to incision at start of case. 20cc Exparel injected to incision at end of case) Specimens Removed: L3-L4 disk Estimated Blood Loss (mls): 2,200 (ml) Drains & Tubes with Location: JONATHAN drain-subcutaneous. Kebede in place- UOP 200ml Blood Volume Replaced (mls): 4 (units prbc) Fluid Volume Replaced (mls): 4 (liters LR) Operative Report Dictated: Yes
--- NOTE | 2018-06-27 14:33 | SURG ---
Surgery Machine Silk Screen Printer Note Machine Silk Screen Printer: Danny Mast PA-C (Suzy) Date of Service: 06/27/18 Diagnosis: Spondylolisthesis, disc herniation with radiculopathy Procedure: L3/L4, L4/L5, L5/S1 Laminectomy, Microdiscectomy with interbody cage arthrodesis , pedicle screw placement/fusion, repair of incidental durotomy with muscle patch I was present for the entirety of the operative procedure. For further detail, please refer to operative report. Visit type - Case Type Case Type: Scheduled - Emergency Emergency Visit: No - New patient This patient is new to me today: Yes Date on this admission: 07/01/18 - Critical Care Critical Care patient: No
[2018-06-27] MEDS ORDERED: ONDANSETRON 4 MG/2 ML VIAL IVPUSH PRN ×2 (14:45→14:46)
[2018-06-27] MEDS: LACTATED RINGERS SOLUTION 1,000 ML/1,000 ML INFUS.BAG IV SCH (18:21)
[2018-06-27] MEDS: DULoxetine HCL 30 MG CAPSULE.DR (FP) PO SCH (18:22)
[2018-06-27] MEDS: POLYETHYLENE GLYCOL 3350 119 GM BTL PO SCH ×2 (18:23→21:14)
[2018-06-27] MEDS: LIDOCAINE 5% TOPICAL PATCH TP SCH ×2 (18:23)
[2018-06-27] MEDS: VALSARTAN 160 MG TABLET (UD) PO SCH (18:23)
[2018-06-27] MEDS: HYDROCHLOROTHIAZIDE 12.5 MG CAPSULE (FP) PO SCH (18:23)
[2018-06-27 19:48] LABS: BASO % 0.4 % (0-2.0); HEMATOCRIT 34.3 % (35.4-49); HEMOGLOBIN 11.9 GM/dL (11.7-16.9); LYMPH % 5.2 % (8-40); MCH 31.2 pg (25.7-33.7); MCHC 34.7 g/dl (32.0-35.9); MEAN PLT VOLUME 8.2 fl (7.5-11.1); MONO % 6.5 % (3.8-10.2); NEUT % 87.9 % (42.8-82.8); PLATELET COUNT 189 K/MM3 (134-434); RBC 3.81 M/mm3 (4.00-5.60); RDW 14.9 % (11.9-15.9); WHITE BLOOD COUNT 17.2 K/mm3 (4.0-10.0)
[2018-06-27 19:57] LABS: ANION GAP 14 MMOL/L (8-16); BLOOD UREA NITROGEN 18 mg/dL (7-18); CALCIUM 8.1 mg/dL (8.5-10.1); CHLORIDE 105 mmol/L (98-107); CO2 20 mmol/L (21-32); CREATININE 1.3 mg/dL (0.55-1.3); GLUCOSE,RANDOM 183 mg/dL (74-106); POTASSIUM 4.9 mmol/L (3.5-5.1); SODIUM 138 mmol/L (136-145)
[2018-06-27] MEDS ORDERED: DEXTROSE 5%-WATER - 50 ML IVPB ONE (20:17)
[2018-06-27] MEDS: CEFAZOLIN 1 GM in DEXTROSE 5%-WATER - 50 ML IVPB SCH (21:09)
[2018-06-27] MEDS: HEPARIN NA (PORCINE) 5,000 UNITS/ML 1ML VIAL SQ SCH (21:09)
[2018-06-28] MEDS: LACTATED RINGERS SOLUTION 1,000 ML/1,000 ML INFUS.BAG IV SCH ×2 (01:48→20:04)
[2018-06-28] MEDS: ACETAMINOPHEN 325 MG TABLET (FP) PO PRN ×3 (01:51→19:57)
[2018-06-28] MEDS ORDERED: DEXTROSE 5%-WATER - 50 ML IVPB ONE ×2 (05:17→13:16)
[2018-06-28] MEDS ORDERED: ceFAZolin SODIUM 1 GM VIAL ONE ×2 (05:17→13:16)
[2018-06-28] MEDS: CEFAZOLIN 1 GM in DEXTROSE 5%-WATER - 50 ML IVPB SCH ×2 (05:21→13:25)
[2018-06-28] MEDS: DOCUSATE SODIUM 100 MG CAPSULE (FP) PO SCH ×3 (06:10→21:20)
[2018-06-28] MEDS: HEPARIN NA (PORCINE) 5,000 UNITS/ML 1ML VIAL SQ SCH ×3 (06:11→21:19)
[2018-06-28 07:52] LABS: HEMATOCRIT 26.2 % (35.4-49); HEMOGLOBIN 9.3 GM/dL (11.7-16.9); MCH 30.8 pg (25.7-33.7); MCHC 35.4 g/dl (32.0-35.9); MEAN CELL VOLUME 87.1 fl (80-96); MEAN PLT VOLUME 7.9 fl (7.5-11.1); PLATELET COUNT 144 K/MM3 (134-434); RDW 15.1 % (11.9-15.9); WHITE BLOOD COUNT 14.1 K/mm3 (4.0-10.0)
[2018-06-28 08:29] LABS: ANION GAP 6 MMOL/L (8-16); BLOOD UREA NITROGEN 18 mg/dL (7-18); CALCIUM 7.7 mg/dL (8.5-10.1); CHLORIDE 103 mmol/L (98-107); CO2 26 mmol/L (21-32); GLUCOSE,RANDOM 96 mg/dL (74-106); POTASSIUM 4.2 mmol/L (3.5-5.1); SODIUM 135 mmol/L (136-145)
[2018-06-28] MEDS ORDERED: HYDROCHLOROTHIAZIDE 12.5 MG CAPSULE (FP) PO SCH (10:00)
[2018-06-28] MEDS: VALSARTAN 160 MG TABLET (UD) PO SCH (11:08)
[2018-06-28] MEDS: POLYETHYLENE GLYCOL 3350 119 GM BTL PO SCH ×2 (11:09→21:20)
[2018-06-28] MEDS: DULoxetine HCL 30 MG CAPSULE.DR (FP) PO SCH (11:29)
--- NOTE | 2018-06-28 13:54 | PN ---
Physical Exam: SUBJECTIVE: Patient seen and examined OBJECTIVE: Vital Signs Period Temp Pulse Resp BP Sys/Hampton Pulse Ox Last 24 Hr 97.8 F-98.6 F 85-120 14-22 88-127/59-78 100-100 GENERAL/NEURO: The patient is awake, alert, and fully oriented, in no acute distress. 3/5 sensory RLE, 5/5 dorsi/plantar flexion bilaterally LUNGS: Breath sounds equal, clear to auscultation bilaterally, no wheezes, no crackles, no accessory muscle use. HEART: Regular rate and rhythm, S1, S2 ABDOMEN: Soft, nontender, nondistended EXTREMITIES: 2+ pulses, warm, well-perfused, no edema. Laboratory Results - last 24 hr 06/27/18 06/27/18 06/28/18 18:45 18:45 06:15 WBC 17.2 H 14.1 H RBC 3.81 L 3.00 L Hgb 11.9 9.3 L Hct 34.3 L 26.2 L D MCV 90.0 87.1 MCH 31.2 30.8 MCHC 34.7 35.4 RDW 14.9 15.1 Plt Count 189 D 144 D MPV 8.2 7.9 Absolute Neuts (auto) 15.1 H Neutrophils % 87.9 H D Lymphocytes % 5.2 L D Monocytes % 6.5 Eosinophils % 0.0 D Basophils % 0.4 Nucleated RBC % 0 Sodium 138 Potassium 4.9 Chloride 105 Carbon Dioxide 20 L Anion Gap 14 BUN 18 Creatinine 1.3 Creat Clearance w eGFR 56.12 Random Glucose 183 H Calcium 8.1 L 06/28/18 06:15 WBC RBC Hgb Hct MCV MCH MCHC RDW Plt Count MPV Absolute Neuts (auto) Neutrophils % Lymphocytes % Monocytes % Eosinophils % Basophils % Nucleated RBC % Sodium 135 L Potassium 4.2 Chloride 103 Carbon Dioxide 26 Anion Gap 6 L BUN 18 Creatinine 1.0 Creat Clearance w eGFR > 60 Random Glucose 96 Calcium 7.7 L Active Medications Generic Name Dose Route Start Last Admin Trade Name Freq PRN Reason Stop Dose Admin Acetaminophen 650 mg 06/27/18 14:45 06/28/18 13:53 Tylenol - PO 650 mg Q4H PRN Administration PAIN LEVEL 1-5 Cyclobenzaprine HCl 5 mg 06/29/18 10:00 Flexeril - PO TID PRN MUSCLE SPASMS Diphenhydramine HCl 25 mg 06/27/18 14:45 Benadryl Injection - IVPUSH Q4H PRN Pruritis Docusate Sodium 100 mg 06/27/18 22:00 06/28/18 13:25 Colace - PO 100 mg TID ALCIRA Administration Duloxetine HCl 30 mg 06/28/18 10:00 06/28/18 11:29 Cymbalta - PO 30 mg DAILY ALCIRA Administration Gabapentin 600 mg 06/28/18 22:00 Neurontin - PO TID ALCIRA Heparin Sodium (Porcine) 5,000 unit 06/27/18 22:00 06/28/18 13:25 Heparin - SQ 5,000 unit TID ALCIRA Administration Cefazolin Sodium 1 gm/ 50 mls @ 100 mls/hr 06/27/18 21:00 06/28/18 13:25 Dextrose IVPB 06/28/18 20:59 100 mls/hr Q8H ALCIRA Administration Lactated Ringer's 1,000 ml in 1,000 mls @ 115 mls/hr 06/27/18 15:00 06/28/18 01:48 Lactated Ringers Solution IV 115 mls/hr ASDIR ALCIRA Administration Ondansetron HCl 4 mg 06/27/18 14:46 Zofran Injection IVPUSH Q6H PRN NAUSEA Polyethylene Glycol 17 gm 06/27/18 22:00 06/28/18 11:09 Miralax (For Daily Use) - PO 17 mg BID ALCIRA Administration Valsartan 160 mg 06/28/18 10:00 06/28/18 11:08 Diovan - PO 160 mg DAILY ALCIRA Administration ASSESSMENT/PLAN 63 year-old male with a PMH significant for HTN and chronic right hip pain and RLE radiculopathy. Admitted for RLE radiculopathy with focal neuro deficits. Disc herniation with radiculopathy s/p L3-L4, L4-L5, L5-S1 laminectomy, microdiscectomy, fusion --perioperative antibiotics --continue gabapentin, cymbalta, flexeril, oxycodone, oxycontin for pain Hypertension --BP stable --continue valsartan, HCTZ FEN Fluids: PO intake adequate Electrolytes: replete as indicated Nutrition: regular DVT prophylaxis: subq heparin Physical therapy Dispo: continues to require inpatient care. Full code. Visit type - Emergency Visit Emergency Visit: Yes ED Registration Date: 06/23/18 Care time: The patient presented to the Emergency Department on the above date and was hospitalized for further evaluation of their emergent condition. - New Patient This patient is new to me today: No - Critical Care Critical Care patient: No
[2018-06-28] MEDS ORDERED: oxyCODONE HCL 5 MG TABLET PO PRN (14:24)
[2018-06-28] MEDS: oxyCODONE HCL 5 MG TABLET PO PRN ×2 (15:25→19:56)
--- NOTE | 2018-06-28 15:30 | PN ---
Progress Note (short form) - Note Progress Note: Anesthesiology Post-op/Pain Service 63 y.o. POD#1 s/p L3-S1 Laminectomy with fusion under GA with intrathecal duramorph. Pt. is awake and alert. He has been in pain; he states that he did not sleep last night and only received acetaminophen with no relief. VSS, no n/v, no apparent anesthesia-related issues except for pain. 63 y.o. s/p spine surgery with post-op pain and otherwise uncomplicated post- operative course. D/w SOLE CONFORMING MACHINE OPERATOR re. starting pt. on PO Oxycodone BID with PRN available. Continue management as per primary team. Please call if there are any further concerns regarding post-op pain.
[2018-06-28] MEDS ORDERED: PT OWN MED DRAWER 7, Y5N ONE (17:42)
[2018-06-28] MEDS: GABAPENTIN 300 MG CAPSULE (FP) PO SCH (21:20)
[2018-06-29] MEDS: GABAPENTIN 300 MG CAPSULE (FP) PO SCH ×3 (05:56→23:47)
[2018-06-29] MEDS: DOCUSATE SODIUM 100 MG CAPSULE (FP) PO SCH ×3 (05:56→23:47)
[2018-06-29] MEDS: oxyCODONE HCL 5 MG TABLET PO PRN ×2 (05:58→12:01)
[2018-06-29] MEDS: HEPARIN NA (PORCINE) 5,000 UNITS/ML 1ML VIAL SQ SCH ×3 (06:00→23:45)
[2018-06-29] MEDS: DULoxetine HCL 30 MG CAPSULE.DR (FP) PO SCH (09:42)
[2018-06-29] MEDS: POLYETHYLENE GLYCOL 3350 119 GM BTL PO SCH ×2 (09:42→23:45)
[2018-06-29] MEDS: VALSARTAN 160 MG TABLET (UD) PO SCH (09:42)
[2018-06-29] MEDS: CYCLOBENZAPRINE HCL 10 MG TABLET (FP) PO PRN ×2 (09:45→17:28)
[2018-06-29] MEDS: oxyCODONE HCL 10 MG SUSTAINED ACTING TABLET PO SCH ×2 (11:57→23:46)
--- NOTE | 2018-06-29 15:49 | PN ---
Physical Exam: SUBJECTIVE: Patient seen and examined at bedside. Has been up walking the hallway with his . Pain is much improved. OBJECTIVE: Vital Signs Period Temp Pulse Resp BP Sys/Hampton Pulse Ox Last 24 Hr 98.1 F-99.1 F 80-117 16-20 91-130/48-78 GENERAL/NEURO: The patient is awake, alert, and fully oriented, in no acute distress LUNGS: Breath sounds equal, clear to auscultation bilaterally, no wheezes, no crackles, no accessory muscle use. HEART: Regular rate and rhythm, S1, S2 ABDOMEN: Soft, nontender, nondistended BACK: Surgical dressing c/d/i EXTREMITIES: 2+ pulses, warm, well-perfused, no edema. Active Medications Generic Name Dose Route Start Last Admin Trade Name Freq PRN Reason Stop Dose Admin Acetaminophen 650 mg 06/28/18 14:25 06/28/18 19:57 Tylenol - PO 650 mg Q6H PRN Administration PAIN LEVEL 1 - 3 Cyclobenzaprine HCl 5 mg 06/29/18 10:00 06/29/18 09:45 Flexeril - PO 5 mg TID PRN Administration MUSCLE SPASMS Diphenhydramine HCl 25 mg 06/27/18 14:45 Benadryl Injection - IVPUSH Q4H PRN Pruritis Docusate Sodium 100 mg 06/27/18 22:00 06/29/18 14:34 Colace - PO 100 mg TID ALCIRA Administration Duloxetine HCl 30 mg 06/28/18 10:00 06/29/18 09:42 Cymbalta - PO 30 mg DAILY ALCIRA Administration Gabapentin 600 mg 06/28/18 22:00 06/29/18 14:34 Neurontin - PO 600 mg TID ALCIRA Administration Heparin Sodium (Porcine) 5,000 unit 06/27/18 22:00 06/29/18 14:35 Heparin - SQ 5,000 unit TID ALCIRA Administration Lactated Ringer's 1,000 ml in 1,000 mls @ 115 mls/hr 06/27/18 15:00 06/28/18 20:04 Lactated Ringers Solution IV Not Given ASDIR ALCIRA Ondansetron HCl 4 mg 06/27/18 14:46 Zofran Injection IVPUSH Q6H PRN NAUSEA Oxycodone HCl 5 mg 06/28/18 14:24 Roxicodone - PO Q4H PRN PAIN LEVEL 4 - 6 Oxycodone HCl 10 mg 06/28/18 14:25 06/29/18 12:01 Roxicodone - PO 10 mg Q4H PRN Administration PAIN LEVEL 7 - 10 Oxycodone HCl 10 mg 06/29/18 10:45 06/29/18 11:57 Oxycontin - PO 10 mg BID ALCIRA Administration Polyethylene Glycol 17 gm 06/27/18 22:00 06/29/18 09:42 Miralax (For Daily Use) - PO 17 mg BID ALCIRA Administration Valsartan 160 mg 06/28/18 10:00 06/29/18 09:42 Diovan - PO 160 mg DAILY ALCIRA Administration ASSESSMENT/PLAN: 63 year-old male with a PMH significant for HTN and chronic right hip pain and RLE radiculopathy. Admitted for RLE radiculopathy with focal neuro deficits. Disc herniation with radiculopathy s/p L3-L4, L4-L5, L5-S1 laminectomy, microdiscectomy, fusion --POD #2 --perioperative antibiotics complete --pain well-managed on PO meds --continue gabapentin, cymbalta, flexeril, oxycodone, oxycontin for pain Hypertension --BP stable --continue valsartan, HCTZ FEN Fluids: PO intake adequate Electrolytes: replete as indicated Nutrition: regular DVT prophylaxis: subq heparin Physical therapy: needs post-op evaluation Dispo: continues to require inpatient care. Full code. Visit type - Emergency Visit Emergency Visit: Yes ED Registration Date: 06/23/18 Care time: The patient presented to the Emergency Department on the above date and was hospitalized for further evaluation of their emergent condition. - New Patient This patient is new to me today: No - Critical Care Critical Care patient: No
[2018-06-30] MEDS: DOCUSATE SODIUM 100 MG CAPSULE (FP) PO SCH ×3 (06:06→21:32)
[2018-06-30] MEDS: GABAPENTIN 300 MG CAPSULE (FP) PO SCH ×3 (06:06→21:31)
[2018-06-30] MEDS: oxyCODONE HCL 5 MG TABLET PO PRN (06:07)
[2018-06-30] MEDS: HEPARIN NA (PORCINE) 5,000 UNITS/ML 1ML VIAL SQ SCH ×3 (06:08→21:32)
[2018-06-30] MEDS: VALSARTAN 160 MG TABLET (UD) PO SCH (10:06)
[2018-06-30] MEDS: oxyCODONE HCL 10 MG SUSTAINED ACTING TABLET PO SCH ×2 (10:06→21:31)
[2018-06-30] MEDS: DULoxetine HCL 30 MG CAPSULE.DR (FP) PO SCH (10:06)
[2018-06-30] MEDS: POLYETHYLENE GLYCOL 3350 119 GM BTL PO SCH ×2 (10:08→21:34)
[2018-07-01] MEDS: DOCUSATE SODIUM 100 MG CAPSULE (FP) PO SCH ×3 (05:29→22:49)
[2018-07-01] MEDS: GABAPENTIN 300 MG CAPSULE (FP) PO SCH ×3 (05:30→22:49)
[2018-07-01] MEDS: HEPARIN NA (PORCINE) 5,000 UNITS/ML 1ML VIAL SQ SCH ×3 (05:30→22:50)
--- NOTE | 2018-07-01 09:58 | PN ---
Physical Exam: SUBJECTIVE: Patient seen and examined at the bedside. Feels well, happy he is able to ambulate better. still having pain but improving overall. OBJECTIVE: neva drain with 50cc sero sang dressing c/d/i awaiting today's labs Vital Signs Period Temp Pulse Resp BP Sys/Hampton Pulse Ox Last 24 Hr 98.4 F-98.5 F 80-89 16-20 94-100/60-68 GENERAL: The patient is awake, alert, and fully oriented, in no acute distress. HEAD: Normal with no signs of trauma. EYES: PERRL, extraocular movements intact, sclera anicteric, conjunctiva clear. No ptosis. ENT: Ears normal, nares patent, oropharynx clear without exudates, moist mucous membranes. NECK: Trachea midline, full range of motion, supple. LUNGS: Breath sounds equal, clear to auscultation bilaterally, HEART: Regular rate and rhythm ABDOMEN: Soft, nontender, nondistended, normoactive bowel sounds, no guarding EXTREMITIES: no edema. NEUROLOGICAL: Normal speech, gait not observed. PSYCH: Normal mood, normal affect. SKIN: back surgical dressing c/d/i. Laboratory Results - last 24 hr 06/26/18 06/26/18 17:32 20:00 Blood Type O POSITIVE O POSITIVE Antibody Screen Negative Crossmatch See Detail Crossmatch IS Only See Detail Active Medications Generic Name Dose Route Start Last Admin Trade Name Freq PRN Reason Stop Dose Admin Acetaminophen 650 mg 06/28/18 14:25 06/28/18 19:57 Tylenol - PO 650 mg Q6H PRN Administration PAIN LEVEL 1 - 3 Cyclobenzaprine HCl 5 mg 06/29/18 10:00 06/29/18 17:28 Flexeril - PO 5 mg TID PRN Administration MUSCLE SPASMS Diphenhydramine HCl 25 mg 06/27/18 14:45 Benadryl Injection - IVPUSH Q4H PRN Pruritis Docusate Sodium 100 mg 06/27/18 22:00 07/01/18 05:29 Colace - PO 100 mg TID ALCIRA Administration Duloxetine HCl 30 mg 06/28/18 10:00 06/30/18 10:06 Cymbalta - PO 30 mg DAILY ALCIRA Administration Gabapentin 600 mg 06/28/18 22:00 07/01/18 05:30 Neurontin - PO 600 mg TID ALCIRA Administration Heparin Sodium (Porcine) 5,000 unit 06/27/18 22:00 07/01/18 05:30 Heparin - SQ 5,000 unit TID ALCIRA Administration Ondansetron HCl 4 mg 06/27/18 14:46 Zofran Injection IVPUSH Q6H PRN NAUSEA Oxycodone HCl 5 mg 06/28/18 14:24 07/01/18 03:56 Roxicodone - PO 5 mg Q4H PRN Administration PAIN LEVEL 4 - 6 Oxycodone HCl 10 mg 06/28/18 14:25 06/30/18 06:07 Roxicodone - PO 10 mg Q4H PRN Administration PAIN LEVEL 7 - 10 Oxycodone HCl 10 mg 06/29/18 10:45 06/30/18 21:31 Oxycontin - PO 10 mg BID ALCIRA Administration Polyethylene Glycol 17 gm 06/27/18 22:00 06/30/18 21:34 Miralax (For Daily Use) - PO 17 grams BID ALCIRA Administration Valsartan 160 mg 06/28/18 10:00 06/30/18 10:06 Diovan - PO 160 mg DAILY ALCIRA Administration ASSESSMENT/PLAN: The patient is a 63 male with a past medical history of hypertension and chronic right hip/knee pain that presents to the ED for persistent right hip pain. The patient reports falling onto his right knee several months ago and since then has been having severe right hip pain that he describes as sharp that comes on suddenly. The right hip pain is described as very sharp and often radiates to this right para-spinous area and radiates to his groin and down his right thigh. He reports parasthesia to his anterior robertson down to his ankle. Neuro: Spondylolisthesis, disc herniation with radiculopathy s/p L3/L4, L4/L5, L5/S1 Laminectomy, microdiscectomy with interbody cage arthrodesis, pedicle screw placement/fusion, repair of incidental durotomy with muscle patch. He is POD #4 - post op antibiotics complete. -Labs and vitals are stable. -pain managed on oxycodone. -Drain removed today by surgical PA. -Patient to continue current pain med regimen and physical therapy. -bowel regimen -incentive spirometer Card: Hypertension history, but at times hypotensive. On diovan 160mg. monitor bp. fen PO intake, regular diet monitor electrolytes prophy scds full code. Visit type - Emergency Visit Emergency Visit: Yes ED Registration Date: 06/23/18 Care time: The patient presented to the Emergency Department on the above date and was hospitalized for further evaluation of their emergent condition. - New Patient This patient is new to me today: No - Critical Care Critical Care patient: No - Discharge Referral Referred to [facility] Med P.C.: No
[2018-07-01] MEDS: DULoxetine HCL 30 MG CAPSULE.DR (FP) PO SCH (10:01)
[2018-07-01] MEDS: oxyCODONE HCL 10 MG SUSTAINED ACTING TABLET PO SCH ×2 (10:01→22:50)
[2018-07-01] MEDS: VALSARTAN 160 MG TABLET (UD) PO SCH (10:01)
[2018-07-01] MEDS: POLYETHYLENE GLYCOL 3350 119 GM BTL PO SCH ×2 (10:02→22:00)
--- NOTE | 2018-07-01 11:16 | PN ---
Progress Note (short form) - Note Progress Note: POD#4 Pt states that he is getting oob with PT and ambulating the hallways with assistance. He is having bilateral pain, more in the right back/thigh/groin. Had BM last pm/am. No headaches. Vital Signs Period Temp Pulse Resp BP Sys/Hampton Pulse Ox Last 24 Hr 98.4 F-98.5 F 80-89 16-20 94-100/60-68 JONATHAN-250ml serosangrenous-removed in the afternoon(tip intact) applied dermabond/ dry dressing to the site. GEN: appears comfortable ABD: soft, non-distended, non-tender LE: no calf tenderness or swelling noted b/l. Back: Dressing c/d/i with aquacel. Small blister to where tegaderm was placed on right lateral hip. Covered with gauze pad and tegaderm. Neuro: 5/5 dorsi/plantar flexion/EHL b/l. CBC, BMP 10/13/18 06:15 10/13/18 06:15 A/p: 63 yo male s/p L3/L4, L4/L5, L5/S1 Laminectomy, Microdiscectomy with interbody cage arthrodesis, pedicle screw placement/fusion, repair of incidental durotomy with muscle patch POD#4 OOB and ambulate with PT/nursing staff with assistance Regular diet Continue pain management with narcotics Stool softners as needed Added folic acid and iron to oral medications Spoke with Dr. Fay and Jonathan removed today Plan per discharge as per the medical team. The patient remains surgically stable IV abx discontinued
[2018-07-01 11:47] LABS: BASO % 0.4 % (0-2.0); EOS % 3.3 % (0-4.5); HEMATOCRIT 23.3 % (35.4-49); HEMOGLOBIN 8.1 GM/dL (11.7-16.9); LYMPH % 10.8 % (8-40); MCH 31.5 pg (25.7-33.7); MCHC 34.7 g/dl (32.0-35.9); MEAN PLT VOLUME 7.4 fl (7.5-11.1); MONO % 13.8 % (3.8-10.2); NEUT % 71.7 % (42.8-82.8); PLATELET COUNT 194 K/MM3 (134-434); RBC 2.56 M/mm3 (4.00-5.60); WHITE BLOOD COUNT 10.2 K/mm3 (4.0-10.0)
[2018-07-01 12:17] LABS: ALBUMIN 2.5 g/dl (3.4-5.0); ALK PHOS 54 U/L (45-117); ANION GAP 4 MMOL/L (8-16); BILIRUBIN,TOTAL 0.5 mg/dL (0.2-1); BLOOD UREA NITROGEN 11 mg/dL (7-18); CALCIUM 8.4 mg/dL (8.5-10.1); CHLORIDE 101 mmol/L (98-107); CO2 29 mmol/L (21-32); CREATININE 0.8 mg/dL (0.55-1.3); GLUCOSE,RANDOM 94 mg/dL (74-106); POTASSIUM 3.8 mmol/L (3.5-5.1); SGOT/AST 17 U/L (15-37); SGPT/ALT 20 U/L (13-61); SODIUM 134 mmol/L (136-145); TOT PROT 5.2 g/dl (6.4-8.2)
[2018-07-01] MEDS: oxyCODONE HCL 5 MG TABLET PO PRN (15:59)
[2018-07-02] MEDS: GABAPENTIN 300 MG CAPSULE (FP) PO SCH ×3 (07:00→21:35)
[2018-07-02] MEDS: HEPARIN NA (PORCINE) 5,000 UNITS/ML 1ML VIAL SQ SCH ×3 (07:01→21:35)
[2018-07-02 07:54] LABS: BASO % 0.3 % (0-2.0); EOS % 2.5 % (0-4.5); HEMATOCRIT 24.3 % (35.4-49); HEMOGLOBIN 8.1 GM/dL (11.7-16.9); LYMPH % 10.9 % (8-40); MCH 30.5 pg (25.7-33.7); MCHC 33.3 g/dl (32.0-35.9); MEAN CELL VOLUME 91.5 fl (80-96); MEAN PLT VOLUME 7.3 fl (7.5-11.1); NEUT % 71.3 % (42.8-82.8); PLATELET COUNT 219 K/MM3 (134-434); RBC 2.65 M/mm3 (4.00-5.60); RDW 14.3 % (11.9-15.9); WHITE BLOOD COUNT 11.8 K/mm3 (4.0-10.0)
--- NOTE | 2018-07-02 08:14 | PN ---
Progress Note (short form) - Note Progress Note: Surgery POD #5 L3/L4, L4/L5, L5/S1 Laminectomy, Microdiscectomy with interbody cage arthrodesis, fusion, repair durotomy with muscle patch. Patient seen and examined at bedside with no new complaints. Patient has been OOB ambulating with a walker. He is tolerating his regular diet, voiding and moving his bowels. He denies any CP, SOB, Fever, Chills, N/V/D. Vital Signs Temp 99.3 F 07/02/18 06:00 Pulse 93 H 07/02/18 06:00 Resp 20 07/02/18 06:00 BP 119/58 L 07/02/18 06:00 Pulse Ox 100 06/27/18 21:00 Intake & Output 07/01/18 07/01/18 07/02/18 11:59 23:59 11:59 Intake Total 350 380 Output Total 40 55 Balance 310 325 Intake: Oral 350 380 Output: Drainage 40 55 Right Lower Back 40 55 Other: Voiding Method Toilet Toilet # Unmeasured Voids Void 1 1 Bowel Movement Yes CBC, BMP 07/02/18 06:30 PE: A&Ox3, NAD unlabored resp on RA Dressing c/d/i with surrounding tissue intact and no evidence of tracking erythema,edema, collection or d/c B/L LE compartments, soft, supple and non-tender with +2 DP pulses. 5/5 dorsi/ plantar flexion with sensation to light touch grossly intact throughout. Problem List - Problems (1) S/P lumbar spinal fusion Assessment/Plan: POD #5 laminectomy with fusion and durotomy repair, patient doing well 1) Continue TLSO brace when OOB 2) encourage IS 3) Plan for d/c today on Iron and folate discussed with medical team 4) F/u with Dr Fay in 2-3 weeks, call office to confirm appointment. Code(s): Z98.1 - ARTHRODESIS STATUS
[2018-07-02] MEDS: oxyCODONE HCL 5 MG TABLET PO PRN (08:19)
[2018-07-02 08:35] LABS: ALBUMIN 2.5 g/dl (3.4-5.0); ALK PHOS 59 U/L (45-117); ANION GAP 11 MMOL/L (8-16); BILIRUBIN,TOTAL 0.5 mg/dL (0.2-1); BLOOD UREA NITROGEN 11 mg/dL (7-18); CALCIUM 8.8 mg/dL (8.5-10.1); CHLORIDE 99 mmol/L (98-107); CO2 26 mmol/L (21-32); CREATININE 0.8 mg/dL (0.55-1.3); GLUCOSE,RANDOM 77 mg/dL (74-106); POTASSIUM 4.1 mmol/L (3.5-5.1); SGOT/AST 17 U/L (15-37); SGPT/ALT 20 U/L (13-61); SODIUM 136 mmol/L (136-145); TOT PROT 5.3 g/dl (6.4-8.2)
[2018-07-02] MEDS: FOLIC ACID 1 MG TABLET (FP) PO SCH (09:05)
[2018-07-02] MEDS: FERROUS SO4 325 MG TABLET (FP) PO SCH (09:05)
[2018-07-02] MEDS: VALSARTAN 160 MG TABLET (UD) PO SCH (09:05)
[2018-07-02] MEDS: DOCUSATE SODIUM 100 MG CAPSULE (FP) PO SCH ×3 (09:05→21:35)
[2018-07-02] MEDS: DULoxetine HCL 30 MG CAPSULE.DR (FP) PO SCH (09:05)
[2018-07-02] MEDS: oxyCODONE HCL 10 MG SUSTAINED ACTING TABLET PO SCH ×2 (09:06→21:35)
--- NOTE | 2018-07-02 09:22 | PATH ---
Surgical Pathology Report Patient Name: LORETO FOREMAN Med. Rec. #: [id number] /Age/Gender: 1955 (Age: 63) / M Account: [id number] Location: [facility] MED/SURG Taken: 06/27/2018 Received: 06/30/2018 Reported: 07/02/2018 Physicians: Risa Bautista ACNP Specimen(s) Received EXTRUDED L3-L4 DISC Clinical History Chronic pain; pain of right hip Final Diagnosis EXTRUDED L3-L4 DISC, LAMINECTOMY AND DISCECTOMY: FRAGMENTS OF CARTILAGINOUS TISSUE WITH DEGENERATIVE CHANGE. Electronically Signed Lucnia Hong M.D. Gross Description Received in formalin labeled "extruded L3-4 disc" are multiple fragments of white-johnson tissue measuring 4 x 3 x 2 cm in aggregate. Wafer Production Lead Worker sections are submitted in one cassette. STEPHANI/06/30/2018 tena/06/30/2018
[2018-07-02] MEDS: POLYETHYLENE GLYCOL 3350 119 GM BTL PO SCH ×2 (12:07→21:35)
--- NOTE | 2018-07-02 12:43 | PN ---
Progress Note (short form) - Note Progress Note: Patient with well controlled pain, however, does not feel strong enough to ascend 40 steps which is required in his home. Wound is clean, dry and intact. -continue dry dressing on wound at all times, skin clip removal at 2 weeks -GI/DVT prophylaxis -Patient is asking for transfer to rehab. He is stable for discharge to rehab from Neurosurgery standpoint.
--- NOTE | 2018-07-02 13:36 | RAPID ---
Physical Examination Vital Signs: Vital Signs Temperature 98.8 F 07/02/18 12:16 Pulse Rate 104 H 07/02/18 12:16 Respiratory Rate 18 07/02/18 12:16 Blood Pressure 93/60 07/02/18 12:16 O2 Sat by Pulse Oximetry (%) 100 06/27/18 21:00 Labs: CBC, BMP 07/02/18 06:30 07/02/18 06:30 Rapid Response - Rapid Response Assessment: Rapid response called at 1:29pm. Team arrived. Patient had an unwitnessed fall. Patient was noted to have low blood pressure at 80/40 prior to fall. Patient denies losing consciousness, denies head trauma. General: Awake, alert, oriented, not in distress VS: BP 103/61, TX 116 Neuro: CN II-XII intact. UE: sensation intact, motor strength 5/5. MSK: RLE: sensation intact, motor strength 5/5. LLE: limited AROM of left hip due to pain. sensation intact. A/P: Mechanical fall Fall protocol initiated. Neuro checks. Head CT scan
[2018-07-02] MEDS ORDERED: oxyCODONE HCL 5 MG TABLET PO PRN (13:42)
--- NOTE | 2018-07-02 13:44 | PN ---
Physical Exam: SUBJECTIVE: Patient seen and examined at the bedside. Patient seen earlier today, ambulating with PT and in his room, gait steady. Rapid response today s/p fall in room, unwitness fall. Head CT done and negative. OBJECTIVE: Note to have hypotension prior to fall: will decrease oxycodone dosing as well as decreased Diovan, both can be contributing to the fall. No head trauma reported, but since on heparin prophy, will scan head CT per fall protocol #1 Vital Signs Period Temp Pulse Resp BP Sys/Hampton Pulse Ox Last 24 Hr 98.2 F-99.6 F 80-104 18-20 93-119/56-68 GENERAL: The patient is awake, alert, and fully oriented, in no acute distress. HEAD: Normal with no signs of trauma. EYES: PERRL, extraocular movements intact, sclera anicteric, conjunctiva clear. No ptosis. ENT: Ears normal, nares patent, oropharynx clear without exudates, moist mucous membranes. NECK: Trachea midline, full range of motion, supple. LUNGS: Breath sounds equal, clear to auscultation bilaterally, HEART: Regular rate and rhythm ABDOMEN: Soft, nontender, nondistended, normoactive bowel sounds, no guarding EXTREMITIES: no edema. NEUROLOGICAL: Normal speech, gait not observed. PSYCH: Normal mood, normal affect. SKIN: back surgical dressing c/d/i. Laboratory Results - last 24 hr 07/02/18 07/02/18 06:30 06:30 WBC 11.8 H RBC 2.65 L Hgb 8.1 L Hct 24.3 L MCV 91.5 MCH 30.5 MCHC 33.3 RDW 14.3 Plt Count 219 MPV 7.3 L Absolute Neuts (auto) 8.4 H Neutrophils % 71.3 Lymphocytes % 10.9 Monocytes % 15.0 H Eosinophils % 2.5 Basophils % 0.3 Nucleated RBC % 0 Sodium 136 Potassium 4.1 Chloride 99 Carbon Dioxide 26 Anion Gap 11 BUN 11 Creatinine 0.8 Creat Clearance w eGFR > 60 Random Glucose 77 Calcium 8.8 Total Bilirubin 0.5 AST 17 ALT 20 Alkaline Phosphatase 59 Total Protein 5.3 L Albumin 2.5 L Active Medications Generic Name Dose Route Start Last Admin Trade Name Freq PRN Reason Stop Dose Admin Acetaminophen 650 mg 06/28/18 14:25 06/28/18 19:57 Tylenol - PO 650 mg Q6H PRN Administration PAIN LEVEL 1 - 3 Cyclobenzaprine HCl 5 mg 06/29/18 10:00 06/29/18 17:28 Flexeril - PO 5 mg TID PRN Administration MUSCLE SPASMS Diphenhydramine HCl 25 mg 06/27/18 14:45 Benadryl Injection - IVPUSH Q4H PRN Pruritis Docusate Sodium 100 mg 06/27/18 22:00 07/02/18 09:05 Colace - PO 100 mg TID [facility] Administration Duloxetine HCl 30 mg 06/28/18 10:00 07/02/18 09:05 Cymbalta - PO 30 mg DAILY [facility] Administration Ferrous Sulfate 325 mg 07/02/18 10:00 07/02/18 09:05 Feosol - PO 325 mg DAILY [facility] Administration Folic Acid 1 mg 07/02/18 10:00 07/02/18 09:05 Folic Acid - PO 1 mg DAILY [facility] Administration Gabapentin 600 mg 06/28/18 22:00 07/02/18 07:00 Neurontin - PO 600 mg TID [facility] Administration Heparin Sodium (Porcine) 5,000 unit 06/27/18 22:00 07/02/18 07:01 Heparin - SQ 5,000 unit TID [facility] Administration Ondansetron HCl 4 mg 06/27/18 14:46 Zofran Injection IVPUSH Q6H PRN NAUSEA Oxycodone HCl 10 mg 06/29/18 10:45 07/02/18 09:06 Oxycontin - PO 10 mg BID [facility] Administration Oxycodone HCl 5 mg 07/02/18 13:42 Roxicodone - PO Q6H PRN PAIN LEVEL 4 - 6 Polyethylene Glycol 17 gm 06/27/18 22:00 07/02/18 12:07 Miralax (For Daily Use) - PO 17 grams BID [facility] Administration Valsartan 160 mg 06/28/18 10:00 07/02/18 09:05 Diovan - PO 160 mg DAILY [facility] Administration ASSESSMENT/PLAN: The patient is a 63 male with a past medical history of hypertension and chronic right hip/knee pain that presents to the ED for persistent right hip pain. The patient reports falling onto his right knee several months ago and since then has been having severe right hip pain that he describes as sharp that comes on suddenly. The right hip pain is described as very sharp and often radiates to this right para-spinous area and radiates to his groin and down his right thigh. He reports parasthesia to his anterior robertson down to his ankle. Neuro: Spondylolisthesis, disc herniation with radiculopathy s/p L3/L4, L4/L5, L5/S1 Laminectomy, microdiscectomy with interbody cage arthrodesis, pedicle screw placement/fusion, repair of incidental durotomy with muscle patch. He is POD #5 - post op antibiotics complete. -Labs and vitals are stable. -pain managed on oxycodone. -Drain removed today by surgical PA. -Patient to continue current pain med regimen and physical therapy. -bowel regimen -incentive spirometer Fall Had an an unwitnessed fall in room today when ambulating from bathroom to bed. States his left knee gave way and he lost his balance. Denies any injury or pain. head CT stable s/p fall. Fall precautions/fall protocol #1. Noted to be hypotensive after fall, will decrease diovan to 80mg daily, and decrease oxycodone dosing. Monitor BP q4. Orthostatics ordered. Card: Hypertension history, but at times hypotensive. On diovan 160mg. monitor bp. fen PO intake, regular diet monitor electrolytes prophy scds full code. Visit type - Emergency Visit Emergency Visit: Yes ED Registration Date: 06/23/18 Care time: The patient presented to the Emergency Department on the above date and was hospitalized for further evaluation of their emergent condition. - New Patient This patient is new to me today: No - Critical Care Critical Care patient: No - Discharge Referral Referred to [facility] Med P.C.: No
--- NOTE | 2018-07-02 13:47 | FALL ---
Fall Exam - Event Witnessed fall: No Location of Fall: Patient Room Fall from: While ambulating - Pre-Fall Mental Status: Alert, Oriented, Cooperative Current Medications: Current Medications Generic Name Dose Route Start Last Admin Trade Name Freq PRN Reason Stop Dose Admin Acetaminophen 650 mg 06/28/18 14:25 06/28/18 19:57 Tylenol - PO 650 mg Q6H PRN Administration PAIN LEVEL 1 - 3 Cyclobenzaprine HCl 5 mg 06/29/18 10:00 06/29/18 17:28 Flexeril - PO 5 mg TID PRN Administration MUSCLE SPASMS Diphenhydramine HCl 25 mg 06/27/18 14:45 Benadryl Injection - IVPUSH Q4H PRN Pruritis Docusate Sodium 100 mg 06/27/18 22:00 07/02/18 09:05 Colace - PO 100 mg TID [facility] Administration Duloxetine HCl 30 mg 06/28/18 10:00 07/02/18 09:05 Cymbalta - PO 30 mg DAILY [facility] Administration Ferrous Sulfate 325 mg 07/02/18 10:00 07/02/18 09:05 Feosol - PO 325 mg DAILY [facility] Administration Folic Acid 1 mg 07/02/18 10:00 07/02/18 09:05 Folic Acid - PO 1 mg DAILY [facility] Administration Gabapentin 600 mg 06/28/18 22:00 07/02/18 07:00 Neurontin - PO 600 mg TID [facility] Administration Heparin Sodium (Porcine) 5,000 unit 06/27/18 22:00 07/02/18 07:01 Heparin - SQ 5,000 unit TID [facility] Administration Ondansetron HCl 4 mg 06/27/18 14:46 Zofran Injection IVPUSH Q6H PRN NAUSEA Oxycodone HCl 10 mg 06/29/18 10:45 07/02/18 09:06 Oxycontin - PO 10 mg BID [facility] Administration Oxycodone HCl 5 mg 07/02/18 13:42 Roxicodone - PO Q6H PRN PAIN LEVEL 4 - 6 Polyethylene Glycol 17 gm 06/27/18 22:00 07/02/18 12:07 Miralax (For Daily Use) - PO 17 grams BID [facility] Administration Valsartan 160 mg 06/28/18 10:00 07/02/18 09:05 Diovan - PO 160 mg DAILY ALCIRA Administration - Post-Fall Patient Outcome: No Injury Treatment: None Vital Signs: Vital Signs Temperature 98.8 F 07/02/18 12:16 Pulse Rate 104 H 07/02/18 12:16 Respiratory Rate 18 07/02/18 12:16 Blood Pressure 93/60 07/02/18 12:16 O2 Sat by Pulse Oximetry (%) 100 06/27/18 21:00 LOC Post-Fall: Unchanged Identify factors for HIGH RISK for Head Injury: Pt on anticoagulant Critical Care Total Critical Care Time (in minutes): 30 Critical Care Statement: The care of this patient involved high complexity decision making to prevent further life threatening deterioration of the patient 's condition and/or to evaluate & treat vital organ system(s) failure or risk of failure.
[2018-07-02 14:53] LABS: ANISOCYTOSIS 2+; MACROCYTOSIS 0; PLATELET ESTIMATE NORMAL
[2018-07-02] MEDS ORDERED: VALSARTAN 80 MG TABLET (UD) PO SCH (16:38)
[2018-07-02] MEDS: ACETAMINOPHEN 325 MG TABLET (FP) PO PRN (19:26)
[2018-07-02] MEDS ORDERED: PT OWN MED DRAWER 7, Y5N ONE (21:31)
[2018-07-02 21:54] LABS: ACTIVATED PTT 29.8 SECONDS (25.2-36.5); INR 1.06 (0.83-1.09); PROTHROMBIN TIME (PATIENT) 12.5 SEC (9.7-13.0)
[2018-07-02] MEDS: SODIUM CHLORIDE 1,000 ML IV SCH (23:12)
[2018-07-03] MEDS: oxyCODONE HCL 5 MG TABLET PO PRN ×2 (01:56→14:16)
[2018-07-03] MEDS: ACETAMINOPHEN 325 MG TABLET (FP) PO PRN ×2 (01:57→17:07)
[2018-07-03] MEDS: DOCUSATE SODIUM 100 MG CAPSULE (FP) PO SCH ×3 (05:29→21:05)
[2018-07-03] MEDS: HEPARIN NA (PORCINE) 5,000 UNITS/ML 1ML VIAL SQ SCH ×3 (05:29→21:06)
[2018-07-03] MEDS: GABAPENTIN 300 MG CAPSULE (FP) PO SCH ×3 (05:29→21:07)
[2018-07-03] MEDS: CYCLOBENZAPRINE HCL 10 MG TABLET (FP) PO PRN (05:32)
[2018-07-03 07:39] LABS: MAGNESIUM 2.2 mg/dL (1.8-2.4)
[2018-07-03 09:01] LABS: BASO % 0.6 % (0-2.0); EOS % 2.4 % (0-4.5); LYMPH % 12.8 % (8-40); MCH 30.6 pg (25.7-33.7); MCHC 33.4 g/dl (32.0-35.9); MEAN CELL VOLUME 91.8 fl (80-96); MEAN PLT VOLUME 7.6 fl (7.5-11.1); MONO % 15.5 % (3.8-10.2); NEUT % 68.7 % (42.8-82.8); PLATELET COUNT 253 K/MM3 (134-434); RBC 2.61 M/mm3 (4.00-5.60); RDW 14.2 % (11.9-15.9)
--- NOTE | 2018-07-03 09:01 | PN ---
Physical Exam: SUBJECTIVE: Patient seen and examined at the bedside. OBJECTIVE: s/p fall yesterday, head ct negative started on ivf for hypotension, improving. Opioid medications dosing decreased, stopped diovan echo with trace tricuspid regurg. Vital Signs Period Temp Pulse Resp BP Sys/Hampton Pulse Ox Last 24 Hr 97.7 F-99.6 F 78-125 18-20 72-141/40-102 95-95 GENERAL: The patient is awake, alert, and fully oriented, in no acute distress. HEAD: Normal with no signs of trauma. EYES: PERRL, extraocular movements intact, sclera anicteric, conjunctiva clear. No ptosis. ENT: Ears normal, nares patent, oropharynx clear without exudates, moist mucous membranes. NECK: Trachea midline, full range of motion, supple. LUNGS: Breath sounds equal, clear to auscultation bilaterally, HEART: Regular rate and rhythm ABDOMEN: Soft, nontender, nondistended, normoactive bowel sounds, no guarding EXTREMITIES: no edema. NEUROLOGICAL: Normal speech, gait not observed. PSYCH: Normal mood, normal affect. SKIN: back surgical dressing c/d/i. Laboratory Results - last 24 hr 07/02/18 07/02/18 07/02/18 06:30 13:31 21:00 Neutrophils % (Manual) 67.7 Band Neutrophils % 0.0 Lymphocytes % (Manual) 12.7 Monocytes % (Manual) 14 H Eosinophils % (Manual) 4.9 H Basophils % (Manual) 1.0 Myelocytes % (Man) 0 Promyelocytes % (Man) 0 Blast Cells % (Manual) 0 Nucleated RBC % 0 Metamyelocytes 0 Hypochromia 1+ Platelet Estimate Normal Polychromasia 1+ Poikilocytosis 0 Anisocytosis 2+ Microcytosis 2+ Macrocytosis 0 PT with INR 12.50 INR 1.06 PTT (Actin FS) 29.8 POC Glucometer 143 Magnesium 07/03/18 06:00 Neutrophils % (Manual) Band Neutrophils % Lymphocytes % (Manual) Monocytes % (Manual) Eosinophils % (Manual) Basophils % (Manual) Myelocytes % (Man) Promyelocytes % (Man) Blast Cells % (Manual) Nucleated RBC % Metamyelocytes Hypochromia Platelet Estimate Polychromasia Poikilocytosis Anisocytosis Microcytosis Macrocytosis PT with INR INR PTT (Actin FS) POC Glucometer Magnesium 2.2 Active Medications Generic Name Dose Route Start Last Admin Trade Name Freq PRN Reason Stop Dose Admin Acetaminophen 650 mg 06/28/18 14:25 07/03/18 01:57 Tylenol - PO 650 mg Q6H PRN Administration PAIN LEVEL 1 - 3 Cyclobenzaprine HCl 5 mg 06/29/18 10:00 07/03/18 05:32 Flexeril - PO 5 mg TID PRN Administration MUSCLE SPASMS Diphenhydramine HCl 25 mg 06/27/18 14:45 Benadryl Injection - IVPUSH Q4H PRN Pruritis Docusate Sodium 100 mg 06/27/18 22:00 07/03/18 05:29 Colace - PO 100 mg TID ALCIRA Administration Duloxetine HCl 30 mg 06/28/18 10:00 07/02/18 09:05 Cymbalta - PO 30 mg DAILY ALCIRA Administration Ferrous Sulfate 325 mg 07/02/18 10:00 07/02/18 09:05 Feosol - PO 325 mg DAILY ALCIRA Administration Folic Acid 1 mg 07/02/18 10:00 07/02/18 09:05 Folic Acid - PO 1 mg DAILY ALCIRA Administration Gabapentin 600 mg 06/28/18 22:00 07/03/18 05:29 Neurontin - PO 600 mg TID [facility] Administration Heparin Sodium (Porcine) 5,000 unit 06/27/18 22:00 07/03/18 05:29 Heparin - SQ Not Given TID [facility] Sodium Chloride 1,000 mls @ 75 mls/hr 07/02/18 21:00 07/02/18 23:12 Normal Saline - IV 75 mls/hr ASDIR ALCIRA Administration Ondansetron HCl 4 mg 06/27/18 14:46 Zofran Injection IVPUSH Q6H PRN NAUSEA Oxycodone HCl 10 mg 06/29/18 10:45 07/02/18 21:35 Oxycontin - PO 10 mg BID ALCIRA Administration Oxycodone HCl 5 mg 07/02/18 17:50 07/03/18 01:56 Roxicodone - PO 5 mg Q6H PRN Administration PAIN LEVEL 7 - 10 Polyethylene Glycol 17 gm 06/27/18 22:00 07/02/18 21:35 Miralax (For Daily Use) - PO Not Given BID [facility] Valsartan 80 mg 07/03/18 10:00 Diovan - PO DAILY ALCIRA ASSESSMENT/PLAN: The patient is a 63 male with a past medical history of hypertension and chronic right hip/knee pain that presents to the ED for persistent right hip pain. The patient reports falling onto his right knee several months ago and since then has been having severe right hip pain that he describes as sharp that comes on suddenly. The right hip pain is described as very sharp and often radiates to this right para-spinous area and radiates to his groin and down his right thigh. He reports parasthesia to his anterior robertson down to his ankle. Neuro: Spondylolisthesis, disc herniation with radiculopathy s/p L3/L4, L4/L5, L5/S1 Laminectomy, microdiscectomy with interbody cage arthrodesis, pedicle screw placement/fusion, repair of incidental durotomy with muscle patch. He is POD #6 - post op antibiotics complete. -Labs and vitals are stable. -pain managed on oxycodone. -Drain removed -Patient to continue physical therapy. -bowel regimen -incentive spirometer Fall s/p fall on 07/02 Noted to be hypotensive after fall likely secondary to BP medication and opioid use. Patient denies dizziness or lightheadness. States his left knee gave way and he lost his balance. Denies any injury or pain. head CT negative s/p fall. Fall precautions/fall protocol #1 to be followed. Will hold his diovan 160mg and monitor BP, decreased prn dose of oxycodone. Echo normal Card: Hypertension history, but has been hypotensive. stop diovan and monitor BP. fen PO intake, regular diet monitor electrolytes prophy scds full code. Visit type - Emergency Visit Emergency Visit: Yes ED Registration Date: 06/23/18 Care time: The patient presented to the Emergency Department on the above date and was hospitalized for further evaluation of their emergent condition. - New Patient This patient is new to me today: No - Critical Care Critical Care patient: No - Discharge Referral Referred to [facility] Med P.C.: No
[2018-07-03 09:21] LABS: ALBUMIN 2.4 g/dl (3.4-5.0); ALK PHOS 66 U/L (45-117); ANION GAP 10 MMOL/L (8-16); BILIRUBIN,TOTAL 0.5 mg/dL (0.2-1); BLOOD UREA NITROGEN 9 mg/dL (7-18); CALCIUM 8.6 mg/dL (8.5-10.1); CHLORIDE 102 mmol/L (98-107); CO2 26 mmol/L (21-32); CREATININE 0.9 mg/dL (0.55-1.3); GLUCOSE,RANDOM 109 mg/dL (74-106); SGOT/AST 14 U/L (15-37); SGPT/ALT 21 U/L (13-61); SODIUM 137 mmol/L (136-145); TOT PROT 5.4 g/dl (6.4-8.2)
[2018-07-03] MEDS: oxyCODONE HCL 10 MG SUSTAINED ACTING TABLET PO SCH ×2 (09:54→21:07)
[2018-07-03] MEDS: FERROUS SO4 325 MG TABLET (FP) PO SCH (09:54)
[2018-07-03] MEDS: DULoxetine HCL 30 MG CAPSULE.DR (FP) PO SCH (09:54)
[2018-07-03] MEDS: FOLIC ACID 1 MG TABLET (FP) PO SCH (09:55)
[2018-07-03] MEDS ORDERED: VALSARTAN 80 MG TABLET (UD) PO SCH ×2 (10:00)
--- NOTE | 2018-07-03 10:00 | PN ---
Progress Note (short form) - Note Progress Note: POD #6 L3/L4, L4/L5, L5/S1 Laminectomy, Microdiscectomy with interbody cage arthrodesis, fusion, repair durotomy with muscle patch. Patient seen and examined at bedside with no new complaints. Patient has been OOB ambulating with a walker. He is tolerating his regular diet, voiding and moving his bowels. He denies any CP, SOB, Fever, Chills, N/V/D. Pt had a a fall yesterday and a rapid response was called pt states that he fell while trying to sit in the bed he denies hitting his head or any injuries. Pt had a CT head that was negative for bleed. Last Vital Signs Temp Pulse Resp BP Pulse Ox 97.7 F 78 20 93/57 L 95 07/03/18 06:35 07/03/18 06:35 07/03/18 06:35 07/03/18 06:35 07/02/18 21:00 CBC, BMP 07/03/18 06:00 07/03/18 06:00 PE: Gen: A&O x3 Resp: breathing comfortably Back: no erythema or discharge, dressing clean Ext: no weakness or numbness, no edema Problem List - Problems (1) S/P lumbar spinal fusion Assessment/Plan: Plan -pt is cleared for discharge as long as he is cleared by PT for his multiple stairs at home. -Pain management -follow up with Dr. Fay as an outpatient Code(s): Z98.1 - ARTHRODESIS STATUS
[2018-07-03] MEDS: POLYETHYLENE GLYCOL 3350 119 GM BTL PO SCH ×2 (10:21→21:08)
[2018-07-03 11:23] LABS: ANISOCYTOSIS 1+; MACROCYTOSIS 2+; PLATELET ESTIMATE NORMAL
--- NOTE | 2018-07-03 13:49 | ECHO ---
Name: LORETO FOREMAN Exam:Adult Echocardiogram Study Date: 07/03/2018 10:18 AM Age: 63 yrs Reason For Study: hypotension Height: 68 in Weight: 170 lb BSA: 1.9 m2 MMode/2D Measurements & Calculations IVSd: 1.0 cm Ao root diam: 2.8 cm LVIDd: 2.6 cm LVIDs: 1.9 cm LVPWd: 1.4 cm EDV(Teich): 24.7 ml LVOT diam: 2.0 cm ESV(Teich): 10.7 ml Procedure A complete two-dimensional transthoracic echocardiogram was performed (2D, M-mode, Doppler and color flow Doppler). Left Ventricle The left ventricular size, thickness and function are normal. The left ventricular ejection fraction is normal. Ejection Fraction = 55-60%. The left ventricular wall motion is normal. Right Ventricle The right ventricle is normal in size and function. Atria Normal left and right atrial size and function. Mitral Valve There is no mitral regurgitation noted. Tricuspid Valve There is trace tricuspid regurgitation. There was insufficient TR detected to calculate RV systolic p ressure. Aortic Valve The aortic valve is trileaflet. No hemodynamically significant valvular aortic stenosis. No aortic regurgitation is present. Pulmonic Valve There is no pulmonic valvular regurgitation. Great Vessels The aortic root is normal size. Pericardium/Pleura There is no pericardial effusion. Interpretation Summary The left ventricular size, thickness and function are normal The right ventricle is normal in size and function. There is trace tricuspid regurgitation. MD Ovi Mcmanus 07/03/2018 01:49 PM
[2018-07-03] MEDS: CYCLOBENZAPRINE HCL 10 MG TABLET (FP) PO SCH ×2 (14:03→21:06)
[2018-07-03] MEDS ORDERED: oxyCODONE HCL 5 MG TABLET PO PRN (15:51)
[2018-07-03] MEDS: SODIUM CHLORIDE 1,000 ML IV SCH (21:06)
[2018-07-04] MEDS: GABAPENTIN 300 MG CAPSULE (FP) PO SCH ×3 (06:51→21:03)
[2018-07-04] MEDS: DOCUSATE SODIUM 100 MG CAPSULE (FP) PO SCH ×3 (06:51→21:03)
[2018-07-04] MEDS: HEPARIN NA (PORCINE) 5,000 UNITS/ML 1ML VIAL SQ SCH ×3 (06:56→21:03)
[2018-07-04] MEDS: CYCLOBENZAPRINE HCL 10 MG TABLET (FP) PO SCH ×2 (09:43→21:04)
[2018-07-04] MEDS: FERROUS SO4 325 MG TABLET (FP) PO SCH (09:44)
[2018-07-04] MEDS: FOLIC ACID 1 MG TABLET (FP) PO SCH (09:44)
[2018-07-04] MEDS: DULoxetine HCL 30 MG CAPSULE.DR (FP) PO SCH (09:44)
[2018-07-04] MEDS: oxyCODONE HCL 10 MG SUSTAINED ACTING TABLET PO SCH (09:44)
[2018-07-04] MEDS: POLYETHYLENE GLYCOL 3350 119 GM BTL PO SCH (11:16)
--- NOTE | 2018-07-04 12:36 | DS ---
Physical Exam: SUBJECTIVE: Patient seen and examined at the bedside. Will be discharged home today. Cleared by surgery for discharge. Patient aware he is to wear his back brace and with ambulation. OBJECTIVE: Vital Signs Period Temp Pulse Resp BP Sys/Hampton Pulse Ox Last 24 Hr 97.7 F-100.5 F 81-92 18-18 99-111/47-70 95 PHYSICAL EXAM GENERAL: The patient is awake, alert, and fully oriented, in no acute distress. HEAD: Normal with no signs of trauma. EYES: PERRL, extraocular movements intact, sclera anicteric, conjunctiva clear. No ptosis. ENT: Ears normal, nares patent, oropharynx clear without exudates, moist mucous membranes. NECK: Trachea midline, full range of motion, supple. LUNGS: Breath sounds equal, clear to auscultation bilaterally, HEART: Regular rate and rhythm ABDOMEN: Soft, nontender, nondistended, normoactive bowel sounds, no guarding EXTREMITIES: no edema. NEUROLOGICAL: Normal speech, gait not observed. PSYCH: Normal mood, normal affect. SKIN: back surgical dressing c/d/i. LABS HOSPITAL COURSE: The patient is a 63 male with a past medical history of hypertension and chronic right hip/knee pain that presents to the ED for persistent right hip pain. On 06/27/2018, he is s/p Spondylolisthesis, disc herniation with radiculopathy s/p L3/L4, L4/L5, L5/S1 Laminectomy, microdiscectomy with interbody cage arthrodesis, pedicle screw placement/fusion, repair of incidental durotomy with muscle patch. He is POD #7 Neuro: Spondylolisthesis, disc herniation with radiculopathy s/p L3/L4, L4/L5, L5/S1 Laminectomy, microdiscectomy with interbody cage arthrodesis, pedicle screw placement/fusion, repair of incidental durotomy -post op antibiotics complete. -Labs and vitals are stable. -pain managed on oxycodone -Drain removed -Patient to continue physical therapy with [facility] -bowel regimen to continue as an outpatient -incentive spirometer encouraged Cleared for discharge by surgery Fall s/p fall on 07/02 Noted to be hypotensive after fall likely secondary to BP medication and opioid use, now resolved continue to hold BP meds until patient is seen by his PCP as an outpatient. May resume BP meds once evaluated by his PCP. Will be sent home with oxycodone 5mg prn, stop oxycontin. Echo normal Card: Hypertension history, but has been hypotensive. stop home dose of Olmesartan/ Hydrochlorothiazide until evaluated by his PCP. BPs have been low during hospitalzation. Date of Admission:06/23/18 Date of Discharge: 07/04/18 Minutes to complete discharge: 60 Discharge Summary Reason For Visit: CHRONIC PAIN; PAIN OF RIGHT HIP Current Active Problems Back pain (Acute) Decreased sensation of lower extremity (Acute) Lumbar radiculopathy (Acute) Nerve pain (Acute) S/P lumbar spinal fusion (Acute) Condition: Improved - Instructions Diet, Activity, Other Instructions: Post Operative Instructions Physical Activity Resume your normal everyday activity as tolerated. No heavy lifting or exercise until seen by your surgeon. You may walk unlimited amounts and climb stairs. You may resume driving the car when you feel safe and comfortable behind the wheel and you are no longer wearing your brace. Do not operate a vehicle while taking narcotic medication. Brace If you had back surgery, wear TLSO Brace whenever out of bed. May remove to sleep and shower. If you had neck surgery, wear surgical collar 23 hr/day. Remove to shower only. Wound Care Keep your incision clean, dry and covered at all times. Apply an occlusive dressing (Saran wrap or Tegaderm) when showering to avoid getting your incision wet. Do not submerge incision or apply ointments or creams. The kirit will be removed in the office in 10-14 days post-op. Hypertension: Stop taking your blood pressure medications as your blood pressures have been low during hospitalization. Please see your primary care doctor and resume the blood pressure medications under his direction. Diet There are no dietary restrictions. Eat healthy, high-fiber foods. Drink 6-8 glasses of liquid each day. This will assist in keeping your bowels regular. Pain Management You may take Tylenol or acetaminophen. Any pain prescription medication ordered should be taken as prescribed for moderate to severe pain. Call Dr Blunt for any of the following: Severe pain not relieved by medication Fever of 101 or higher Excessive bleeding or drainage on dressing Inability to urinate Any chest pain or shortness of breath, seek Emergency Care. Call the office to confirm a post-operative appointment for 2-3 weeks post-op Gallito Fay MD [facility] [address] [place] [address] Disposition: [facility]/HOME HEALTH CARE - Home Medications Comprehensive Discharge Medication List: Ambulatory Orders Naproxen 500 mg PO BID 05/16/18 Olmesartan/Hydrochlorothiazide [Olmesartan-Hctz 20-12.5 mg Tab] 1 tablet PO DAILY 05/16/18 Acetaminophen [Tylenol .Regular Strength -] 650 mg PO Q6H PRN tablet 05/17/18 Gabapentin [Neurontin -] 100 mg PO Q8H #42 capsule 05/17/18 Gabapentin [Neurontin -] 100 mg PO TID #42 capsule 05/17/18 Lidocaine 5% Patch [Lidoderm -] 1 patch TP DAILY #7 patch 05/17/18 Lidocaine 5% Patch [Lidoderm Patch -] 1 patch TP DAILY #7 patch 05/17/18 This patient is new to me today: No Emergency Visit: Yes ED Registration Date: 06/23/18 Care time: The patient presented to the Emergency Department on the above date and was hospitalized for further evaluation of their emergent condition. Critical Care patient: No - Discharge Referral Referred to [facility] Med P.C.: No
[2018-07-04] MEDS ORDERED: oxyCODONE HCL 5 MG TABLET PO PRN (13:48)
[2018-07-04] MEDS: ACETAMINOPHEN 325 MG TABLET (FP) PO PRN (19:02)
[2018-07-04 20:13] VITALS: BP 113/70; PULSE 85; TEMP 99.5
== END 2018-07-04 21:10 | disposition home health service (06) | DRG 304 ==
LOC: JER 13:13 → JERBED 16:27 → J7W 20:44 → OBSVTOIN 06-23 10:25 → J8W 06-27 12:12
PROVIDERS: ADMIT Internal Medicine; ATTEND Nurse Practitioner Family
PROC: 0SG30AJ Fusion of Lumbosacral Joint with Interbody Fusion Device, Posterior Approach, Anterior Column, Open Approach (ICD-10-PCS; 2018-06-27)
PROC: 0ST20ZZ Resection of Lumbar Vertebral Disc, Open Approach (ICD-10-PCS; 2018-06-27)
PROC: 0ST40ZZ Resection of Lumbosacral Disc, Open Approach (ICD-10-PCS; 2018-06-27)
PROC: 0JX70ZZ Transfer Back Subcutaneous Tissue and Fascia, Open Approach (ICD-10-PCS; 2018-06-27)
PROC: 00Q20ZZ Repair Dura Mater, Open Approach (ICD-10-PCS; 2018-06-27)
PROC: 0SG00AJ Fusion of Lumbar Vertebral Joint with Interbody Fusion Device, Posterior Approach, Anterior Column, Open Approach (ICD-10-PCS; principal; 2018-06-27 08:00)
DX: M43.16 Spondylolisthesis, lumbar region (principal); M43.17 Spondylolisthesis, lumbosacral region; M51.27 Other intervertebral disc displacement, lumbosacral region; G97.41 Accidental puncture or laceration of dura during a procedure; I95.9 Hypotension, unspecified; I10 Essential (primary) hypertension; F17.210 Nicotine dependence, cigarettes, uncomplicated; M25.551 Pain in right hip; M54.9 Dorsalgia, unspecified; Y83.8 Other surgical procedures as the cause of abnormal reaction of the patient, or of later complication, without mention of misadventure at the time of the procedure; M54.16 Radiculopathy, lumbar region
CPT/HCPCS: 36415; 36430; 70450-TC; 71045-TC-FY; 72131-TC; 72148-TC; 73721-RT-TC; 76000-TC-FY; 80048; 80053; 82962; 83735; 85025; 85027; 85610; 85730; 86850; 86900; 86901; 86922; 88304-TC; 93005; 93010; 93306-TC; 94760; 97116-GP; 97161-GP; 99282-25; G0378; J1644; J7030; P9017; P9038; P9058